=== PATIENT | female | born 1995 | race Caucasian/White ===

== ENCOUNTER → 2017-10-28 08:27 | Outpatient (CLI) | payer BC, MEDICAID, SELFPAY ==
[2017-10-28 09:53] VITALS: BP 113/59; PULSE 79; RESP 18; TEMP 37.1; O2SAT 97
== END ==
PROVIDERS: Family Provider Pediatrics; PCP Pediatrics; Visit Provider Nurse Practitioner Obstetrics & Gynecology
DX: Z34.90 Encounter for supervision of normal pregnancy, unspecified, unspecified trimester (principal)
CPT/HCPCS: 36415; 96372; J2790

== ENCOUNTER → 2017-11-06 10:07 | Outpatient (CLI) | payer BC, MEDICAID, SELFPAY ==
[2017-11-06 11:10] LABS: Glucose,Fasting 96 mg/dL (60-105)
[2017-11-06 12:52] LABS: Glucose 1 Hour 200 mg/dL
[2017-11-06 13:39] LABS: Glucose 2 Hour 126 mg/dL
[2017-11-06 14:27] LABS: Glucose 3 Hour 110 mg/dL
== END ==
PROVIDERS: PCP Pediatrics; Visit Provider Nurse Practitioner Obstetrics & Gynecology
DX: Z34.90 Encounter for supervision of normal pregnancy, unspecified, unspecified trimester (principal)
CPT/HCPCS: 36415; 81002; 82951; 82952

== ENCOUNTER → 2017-12-14 17:23 | Outpatient (REF) | payer BC, MEDICAID, SELFPAY | LOC: LAB 17:23 | PROVIDERS: Visit Provider Nurse Practitioner Obstetrics & Gynecology | DX: Z34.90 Encounter for supervision of normal pregnancy, unspecified, unspecified trimester (principal) | CPT/HCPCS: 86403 ==

== ENCOUNTER 2018-01-06 05:35 | Inpatient (IN) ==
[2018-01-06 06:21] LABS: Basophils % 0.3 % (0.1-2.0); Eosinophils # 0.1 K/mm3 (0.0-0.4); Eosinophils % 0.7 % (0.1-12.0); Hematocrit 34.8 % (37.0-47.0); Hemoglobin 11.9 g/dL (12.2-16.2); Lymphocytes % 26.7 K/mm3 (10-50); Mean Corpuscular HGB Conc 34.3 g/dL (31.8-35.4); Mean Corpuscular Hemoglobin 30.3 pg (27.0-31.2); Mean Corpuscular Volume 88.3 fl (81-99); Mean Platelet Volume 8.8 fl (7.4-10.4); Monocytes # 0.4 K/mm3 (0.1-1.0); Monocytes % 5.7 % (1.7-9.3); Neutrophils # 4.9 K/mm3 (1.8-7.8); Neutrophils % 66.6 % (37.0-80.0); Platelet Count 191 K/mm3 (142-424); Red Blood Count 3.94 M/mm3 (4.20-5.40); Red Cell Distribution Width 14.3 % (11.5-17.5); White Blood Count 7.4 K/mm3 (4.5-13.0)
[2018-01-06 06:25] LABS: Anion Gap 12.9 mEq/L (5-15); Potassium 3.9 mmoL/L (3.5-5.1)
--- NOTE | 2018-01-06 08:17 | Operative Note ---
Date of procedure: 01/06/18 Pre-op Diagnosis:: Term , previous section Post-op Diagnosis:: Term , previous section Procedure performed:: Repeat lower segment transverse section Surgeon:: Alfonso Ca MD Vice President Payment(s):: Dr. Cazares CIVIL ENGINEERING MANAGER:: Ata Shah Anesthesia: spinal Estimated blood loss (mL): 600 Clinical Note:: She is a 22-year-old 2 para 1 who is 39+ weeks gestational age. She has had a previous section and as result of that was offered repeat lower segment transverse section at term Operative findings:: She delivered a liveborn female child at 7:44 AM on the morning of January 06, 2018. The baby had Apgars of 8 at 1 minute and 9 at 5 minutes. PH was 7.31. Ovaries and tubes appeared normal. Operative note:: She was taken to the operating room where spinal anesthesia was found be adequate. She was prepped and draped in normal sterile fashion in the supine position with a leftward tilt. A Matson catheter was in the bladder. A Pfannenstiel skin incision was made with knife then carried through to the underlying layer of fascia with cautery. The fascia was opened in the midline with cautery and extended laterally using Miller scissors. Edward clamps were applied to the superior aspect of the fascial incision which was tented up and the underlying rectus muscles dissected off using cautery. The Edward clamps were then applied to the inferior aspect of the fascial incision which in a similar fashion was tented up and the underlying rectus muscles dissected off using cautery. The rectus muscles were then in the midline, the peritoneum identified, and entered sharply with Metzenbaum scissors. This incision was then extended superiorly and inferiorly with cautery. We had good visualization of the bladder inferiorly. The bladder peritoneum was then opened in the midline and extended laterally using Metzenbaum scissors. A bladder flap was created digitally. The lower blade of the Ignacia was inserted so as to push the bladder out of the way. Transverse incision was made through the uterine muscle to the amnion. This incision was then extended laterally using fingers traction. The amnion was entered sharply with knife. There was clear amniotic fluid. The infant's head was then delivered atraumatically. This was followed by the anterior shoulder and the rest of the infant's body atraumatically. The oropharynx and nasopharynx were bulb suctioned. The was then handed off to Dr. Castro who assigned Apgars of 8 at 1 minute and 9 at 5 minutes. We then obtained cord blood as well as cord pH. PH was 7.31. Using gentle traction on the cord and countertraction on the fundus I was able to easily deliver the placenta intact. It had a normal three-vessel cord. The uterus was then cleared of clots and debris and exteriorized from the abdominal cavity. The uterine incision was then closed using running 0 Vicryl suture in a locked fashion. A second layer of the same suture was used to imbricate the first layer. The bladder peritoneum was then closed using running 2-0 Vicryl suture in a locked fashion. The gutters and cul-de-sac were then cleared of clots and debris and the uterus was returned the abdominal cavity. Once again hemostasis was assured. The peritoneum was grasped with Sammi clamps and closed using running 2-0 Vicryl suture. The rectus muscles were then reapproximated using running 0 Vicryl suture. The fascia was closed using running #1 Vicryl suture. The subcutaneous tissues were then irrigated with warm water followed by closure Sarika's fascia using running 2-0 Monocryl suture. The skin was closed with keeely. The skin was then cleaned with Hibiclens. Sterile dressings were applied. She tolerated the procedure well and was taken to the recovery room in excellent condition. All sponges minute and needle counts were correct. Estimate a blood loss was approximately 600 mL. Condition: stable Disposition: PACU Specimens:: None Complications:: None
--- NOTE | 2018-01-06 08:18 | Progress Note ---
[facility] Anesthesia Checklist - Structural Data Admitted From: Inpatient Planned Operative Procedure/s: c/section Consent for Planned Operative Procedure(s) Verified: Yes Verified Documents: Surgical Consent - Airway Assessment C-Spine Mobility Assessed: Yes TMJ Mobility Assessed: Yes Dentition: Good Dentition - Anesthesia Plan Anesthesia Risk discussed: Yes Anesthesia Plan: Verified ASA Class: II Anesthesia Type: Spinal [facility] Anesthesia HX I have reviewed the patient's past medical history: Yes Medical History: Denies:: Anxiety, Asthma, Depression Laterality Cases: Bilateral: Other Other Surgeries: Yes: Amputation: No Fractures: No *Family Hx:: Diabetes, Hypertension, Coronary Artery Disease, Heart Attack
--- NOTE | 2018-01-06 08:18 | Progress Note ---
[facility] Anesthesia Record Part I Intake, IV Amount: 1,500 Estimated blood loss (mL): 600 Urine output (mL): 200 Blood Pressure: 129/56 SaO2: 95 Pulse Rate: 81 Respiratory Rate: 12 Temperature: 97.5 F Patient is:: Awake, Stable Stable to PACU at:: 08:15
--- NOTE | 2018-01-06 08:19 | Progress Note ---
[facility] Anesthesia Record Part II Discharge Time: 08:45 Destination: Obstetric PACU nurse assessment reviewed?: Yes Patient Condition:: Good Anesthesia Complications:: None
--- NOTE | 2018-01-06 08:20 | History & Physical Report ---
OB - H&P: HPI Antepartum - History of Present Illness Chief complaint: Term , previous section - History of Present Criteria for establishing EDC:: LMP confirmed by 1st trimester US care: good care Ultrasounds: normal 1st trimester US, normal mid trimester US Obstetrical complications: none, previous Medical complications: none Planning to breastfeed?: No H History I have reviewed the patient's past medical history: Yes Medical History: Denies:: Anxiety, Asthma, Depression Laterality Cases: Bilateral: Other Other Surgeries: Yes: Amputation: No Fractures: No - *Social History Smoking Status: Never smoker # Packs/Day (cigarettes): 1 Alcohol Intake: never Substance Use Type: denies use - Psychiatric History Pschychiatric History:: Denies:: Anxiety, Depression *Family Hx:: Diabetes, Hypertension, Coronary Artery Disease, Heart Attack Para: 1 Meds Home Medications Medication Instructions Recorded Confirmed Type 1 tab PO QDAY 10/21/17 01/06/18 History vitamin,calcium,nhduaqsi-lyqj-fgtsh acid tablet RX: Iron Polysaccharide Complex 150 mg PO ONCE 01/06/18 01/06/18 History [Nu-Iron 150] Allergies Allergy/AdvReac Type Severity Reaction Status Date / Time No Known Allergies Allergy Verified 12/31/17 10:07 OB - H&P: Exam - Physical Exam Vital signs: Temp Pulse Resp BP Pulse Ox 98.4 F 82 18 103/61 96 01/06/18 06:34 01/06/18 06:34 01/06/18 06:34 01/06/18 06:34 01/06/18 06:34 - Constitutional no acute distress OB - Results - Labs Labs: Short CBC 01/06/18 Range/Units 06:10 WBC 7.4 (4.5-13.0) K/mm3 Hgb 11.9 L (12.2-16.2) g/dL Hct 34.8 L (37.0-47.0) % Plt Count 191 (142-424) K/mm3 BMP 01/06/18 06:10 Sodium 136 Potassium 3.9 Chloride 105 Carbon Dioxide 22 BUN 13 Creatinine 0.71 Glucose 98 OB - A/P Antepartum (1) Previous section complicating , with delivery Current visit: Yes Status: Acute - Additional Plan Plan: other (She is here for a repeat lower segment transverse position at term. ) Planning to breastfeed?: No
--- NOTE | 2018-01-06 11:23 | Pharmacy Consult Notes ---
[facility] Pharmacy VTE Monitoring - Patient Demographics Admission date: 01/05/18 Report Date: 01/06/18 Time: 11:23 Allergies/Adverse Reactions: Patient Allergies No Known Allergies Allergy (Verified 12/31/17 10:07) Height: 1.73 m Weight: 101.605 kg Patient Problems: Current Active Problems Previous section complicating , with delivery (Acute) - VTE Risk Labs: VTE Related Lab Results Hgb 11.9 g/dL (12.2-16.2) L 01/06/18 06:10 Hct 34.8 % (37.0-47.0) L 01/06/18 06:10 Plt Count 191 K/mm3 (142-424) 01/06/18 06:10 BUN 13 mg/dL (7-18) 01/06/18 06:10 Creatinine 0.71 mg/dL (0.55-1.02) 01/06/18 06:10 Estimated Creat Clear 203 mL/min (0-300) 01/06/18 06:10 Clinical Trial Participant: No - Prophylaxis VTE Prophylaxis Ordered?: Yes Types of VTE Prophylaxis: IPCS Knee High (POST OP)
[2018-01-07 06:45] LABS: Basophils % 0.2 % (0.1-2.0); Eosinophils # 0.1 K/mm3 (0.0-0.4); Eosinophils % 1.5 % (0.1-12.0); Hematocrit 34.5 % (37.0-47.0); Hemoglobin 11.1 g/dL (12.2-16.2); Lymphocytes # 1.8 K/mm3 (0.7-4.5); Lymphocytes % 22.3 K/mm3 (10-50); Mean Corpuscular HGB Conc 32.3 g/dL (31.8-35.4); Mean Corpuscular Hemoglobin 29.7 pg (27.0-31.2); Mean Platelet Volume 8.9 fl (7.4-10.4); Monocytes # 0.5 K/mm3 (0.1-1.0); Monocytes % 5.9 % (1.7-9.3); Neutrophils # 5.6 K/mm3 (1.8-7.8); Neutrophils % 70.1 % (37.0-80.0); Platelet Count 156 K/mm3 (142-424); Red Blood Count 3.75 M/mm3 (4.20-5.40); Red Cell Distribution Width 14.4 % (11.5-17.5)
--- NOTE | 2018-01-07 11:02 | Progress Note ---
Internal Medicine - PN: Subj *Date: 01/07/18 *Time: 10:56 Interval history: She is doing very well this morning. She is eating and drinking and ambulating. Exam Vital signs and Labs for Last 24 Hours: Temp Pulse Resp BP Pulse Ox 98.3 F 88 18 113/68 97 01/06/18 19:45 01/06/18 19:45 01/06/18 19:45 01/06/18 19:45 01/06/18 19:45 Laboratory Results - last 24 hr 01/06/18 06:10: Antibody Identification Anti-D 01/06/18 07:35: Urine Color Yellow, Urine Appearance Clear, Urine pH 7.0, Ur Specific [place] 1.020, Urine Protein Negative, Urine Glucose (UA) Negative, Urine Ketones Negative, Urine Blood Negative, Urine Nitrate Negative, Urine Bilirubin Negative, Urine Urobilinogen 0.2, Ur Leukocyte Esterase Negative, Urine RBC None, Urine WBC Occasional, Ur Squamous Epith Cells 3-5, Urine Bacteria 1+ 01/07/18 06:25: WBC 8.0, RBC 3.75 L, Hgb 11.1 L, Hct 34.5 L, MCV 92.0, MCH 29.7 , MCHC 32.3, RDW 14.4, Plt Count 156, MPV 8.9, Neut % (Auto) 70.1, Lymph % (Auto ) 22.3, [place] % (Auto) 5.9, Eos % (Auto) 1.5, Baso % (Auto) 0.2, Neut # (Auto) 5.6, Lymph # (Auto) 1.8, [place] # (Auto) 0.5, Eos # (Auto) 0.1, Baso # (Auto) 0.0 01/07/18 06:25: Blood Type A Negative, Antibody Screen Positive, Screen Negative, Baby's Rh Status Positive I & O for Last 24 hours: Intake & Output 01/04/18 01/05/18 01/06/18 01/07/18 11:59 11:59 11:59 11:59 Intake Total 1500 / 1500 Output Total 200 / 200 Balance 1300 / 1300 Weight 224 lb - Constitutional no acute distress Assessment and Plan (1) Previous section complicating , with delivery Current visit: Yes Status: Acute Category: Surgical Code(s): O34.219 - Maternal care for unspecified type scar from previous delivery - Assessment and plan all Dx Assessment and Plan for all problems:: She is doing very well 1 day post . We will plan to send her home in 48 hours.
--- NOTE | 2018-01-07 11:06 | Discharge Summary ---
General - General Admission date: 01/05/18 Discharge date: 01/09/18 HPI HPI: She is a 22-year-old 2 now para 2 who is 39 weeks gestational age. She has had previous section so she was offered repeat lower segment Hospital Course Hospital Course: On January 06, 2018 she underwent a repeat lower segment transverse section and delivered a liveborn child. She has done well postoperatively and has remained afebrile throughout her physician. She is eating and drinking and ambulating. She is bottlefeeding. Her lochia is normal. She is discharged home to follow-up with me in approximately 2 weeks time. She has had her keeley removed and Steri-Strips applied. She was given a prescription for Percocet 5/325, 20 tablets. We will continue with her vitamins and iron. Objective Vital signs: Temp Pulse Resp BP Pulse Ox 98.3 F 88 18 113/68 97 01/06/18 19:45 01/06/18 19:45 01/06/18 19:45 01/06/18 19:45 01/06/18 19:45 no acute distress Results Labs on day of discharge: Labs from last 24 hours 01/07/18 01/07/18 01/07/18 06:25 06:25 06:25 WBC 8.0 RBC 3.75 L Hgb 11.1 L Hct 34.5 L MCV 92.0 MCH 29.7 MCHC 32.3 RDW 14.4 Plt Count 156 MPV 8.9 Neut % (Auto) 70.1 Lymph % (Auto) 22.3 [place] % (Auto) 5.9 Eos % (Auto) 1.5 Baso % (Auto) 0.2 Neut # (Auto) 5.6 Lymph # (Auto) 1.8 [place] # (Auto) 0.5 Eos # (Auto) 0.1 Baso # (Auto) 0.0 Urine Color Urine Appearance Urine pH Ur Specific [place] Urine Protein Urine Glucose (UA) Urine Ketones Urine Blood Urine Nitrate Urine Bilirubin Urine Urobilinogen Ur Leukocyte Esterase Urine RBC Urine WBC Ur Squamous Epith Cells Urine Bacteria Blood Type A Negative Antibody Screen Positive Antibody Identification Pending Screen Negative Baby's Rh Status Positive 01/06/18 01/06/18 07:35 06:10 WBC RBC Hgb Hct MCV MCH MCHC RDW Plt Count MPV Neut % (Auto) Lymph % (Auto) [place] % (Auto) Eos % (Auto) Baso % (Auto) Neut # (Auto) Lymph # (Auto) [place] # (Auto) Eos # (Auto) Baso # (Auto) Urine Color Yellow Urine Appearance Clear Urine pH 7.0 Ur Specific [place] 1.020 Urine Protein Negative Urine Glucose (UA) Negative Urine Ketones Negative Urine Blood Negative Urine Nitrate Negative Urine Bilirubin Negative Urine Urobilinogen 0.2 Ur Leukocyte Esterase Negative Urine RBC None Urine WBC Occasional Ur Squamous Epith Cells 3-5 Urine Bacteria 1+ Blood Type Antibody Screen Antibody Identification Anti-D Screen Baby's Rh Status DS: Diagnosis - Discharge Diagnosis (1) Previous section complicating , with delivery Status: Acute Discharge Plan - Patient Discharge Instructions ACTIVITY: No heavy lifting DIET: continue same diet - Follow up Plan Disposition: Home, Self-[facility] Medications: Home Medications Medication Instructions Recorded Confirmed Type 1 tab PO DAILY 10/21/17 01/06/18 History vitamin,calcium,zyxrlbak-uppz-lzxvg acid tablet Iron Polysaccharide Complex 150 mg PO DAILY 01/06/18 01/06/18 History [Nu-Iron 150] Prescriptions/Medication Reconciliation: Continue vitamin,calcium,ielrwxrr-byfj-scmol acid tablet 1 tab PO DAILY Iron Polysaccharide Complex [Nu-Iron 150] 150 mg PO DAILY
--- NOTE | 2018-01-08 06:25 | Progress Note ---
Internal Medicine - PN: Subj *Date: 01/08/18 *Time: 06:24 (This is /postop day #2. Covering for Dr. Ca in his absence. The patient is afebrile. Vital signs stable. Wound clean. Abdomen soft. Lochia normal. Uterine fundus involuting well. Impression: Stable.) Exam Vital signs and Labs for Last 24 Hours: Temp Pulse Resp BP Pulse Ox 98.3 F 88 18 113/68 97 01/06/18 19:45 01/06/18 19:45 01/06/18 19:45 01/06/18 19:45 01/06/18 19:45 Laboratory Results - last 24 hr 01/07/18 06:25: WBC 8.0, RBC 3.75 L, Hgb 11.1 L, Hct 34.5 L, MCV 92.0, MCH 29.7 , MCHC 32.3, RDW 14.4, Plt Count 156, MPV 8.9, Neut % (Auto) 70.1, Lymph % (Auto ) 22.3, [place] % (Auto) 5.9, Eos % (Auto) 1.5, Baso % (Auto) 0.2, Neut # (Auto) 5.6, Lymph # (Auto) 1.8, [place] # (Auto) 0.5, Eos # (Auto) 0.1, Baso # (Auto) 0.0 01/07/18 06:25: Blood Type A Negative, Antibody Screen Positive, Screen Negative, Baby's Rh Status Positive 01/07/18 14:27: Rhogam Infusion Rhogam release I & O for Last 24 hours: Intake & Output 01/05/18 01/06/18 01/07/18 01/08/18 11:59 11:59 11:59 11:59 Intake Total 1500 / 1500 Output Total 200 / 200 Balance 1300 / 1300 Weight 224 lb Assessment and Plan (1) Previous section complicating , with delivery Current visit: Yes Status: Acute Category: Surgical Code(s): O34.219 - Maternal care for unspecified type scar from previous delivery
--- NOTE | 2018-01-09 07:31 | Progress Note ---
Internal Medicine - PN: Subj *Date: 01/09/18 *Time: 07:30 (This is /postop day #3. The patient is afebrile. Vital signs stable. Wound clean. Bronson will be removed and replaced Steri- Strips. Abdomen soft. Lochia normal uterine fundus involuting well. Hemoglobin 11.1 g, but clinically stable. She will be discharged today.) Exam Vital signs and Labs for Last 24 Hours: Temp Pulse Resp BP Pulse Ox 97.6 F 70 18 110/73 97 01/08/18 08:00 01/08/18 08:00 01/08/18 08:00 01/08/18 08:00 01/08/18 08:00 Laboratory Results - last 24 hr 01/07/18 06:25: Antibody Identification See Comments I & O for Last 24 hours: Intake & Output 01/06/18 01/07/18 01/08/18 01/09/18 11:59 11:59 11:59 11:59 Intake Total 1500 / 1500 Output Total 200 / 200 Balance 1300 / 1300 Weight 224 lb Assessment and Plan (1) Previous section complicating , with delivery Current visit: Yes Status: Acute Category: Surgical Code(s): O34.219 - Maternal care for unspecified type scar from previous delivery
== END 2018-01-09 11:25 | disposition home or self-care (01) ==
LOC: OB 05:35
PROVIDERS: ADMIT Nurse Practitioner Obstetrics & Gynecology; ATTEND Nurse Practitioner Obstetrics & Gynecology

== ENCOUNTER → 2018-08-31 13:52 | Outpatient (CLI) | payer BC, MEDICAID, SELFPAY ==
[2018-08-31 15:26] LABS: HCG,Quantitative 0 mIU/mL
== END ==
PROVIDERS: Visit Provider Nurse Practitioner Obstetrics & Gynecology
DX: Z34.90 Encounter for supervision of normal pregnancy, unspecified, unspecified trimester (principal)
CPT/HCPCS: 36415; 84702

== ENCOUNTER → 2019-04-26 11:35 | Outpatient (CLI) | payer BC, MEDICAID, SELFPAY ==
--- NOTE | 2019-04-26 11:43 | XR_ITS ---
XR finger LT min 2V CLINICAL INDICATION: Pain following injury ITS.REASON: INJURY OF FINGER ORDERING PHYSICIAN: Ac Wisdom MD PATIENT AGE: 23 years Comparison: None FINDINGS: There is a nondisplaced longitudinal fracture involving the proximal aspect of the distal phalanx of the third finger. The fracture does appear to extend into the articular surface of the DIP joint. IMPRESSION: Nondisplaced fracture distal phalanx third finger
== END ==
PROVIDERS: PCP Internal Medicine Adolescent Medicine; Visit Provider Internal Medicine Adolescent Medicine
DX: S69.92XA Unspecified injury of left wrist, hand and finger(s), initial encounter (principal)
CPT/HCPCS: 73140

== ENCOUNTER → 2019-06-16 14:18 | Outpatient (CLI) | payer BC, MEDICAID, SELFPAY ==
--- NOTE | 2019-06-16 14:19 | US_ITS ---
PROCEDURE: US OB TRANSVAGINAL CLINICAL INDICATION: us ob dates COMPARISON: TVP US TRANSVAGINAL PREG from 06/10/2017 FINDINGS: The uterus is retroverted An intrauterine gestational sac is present with a pole with a crown-rump length of 1.46 cm correlating to gestational age of 7.86 week. heart tones are present with an FHR of 139 bpm. Yolk sac is noted. The amnion and chorion Have not yet fused. Adnexa: IMPRESSION: Live intrauterine gestation at 7 weeks 6 days Estimated due date by Ultrasound is 01/27/2020 Dictated by: Daniel Mendoza MD 06/16/2019 15:28 Electronically signed by Daniel Mendoza MD in [place] 06/16/2019 15:28
== END ==
PROVIDERS: PCP Internal Medicine Adolescent Medicine; Visit Provider Nurse Practitioner Obstetrics & Gynecology
DX: O26.841 Uterine size-date discrepancy, first trimester (principal)
CPT/HCPCS: 76817

== ENCOUNTER → 2019-07-05 10:32 | Outpatient (CLI) | payer BC, MEDICAID, SELFPAY ==
[2019-07-05 12:47] LABS: Basophils % 0.5 % (0.1-2.0); Eosinophils # 0.1 K/mm3 (0.0-0.4); Eosinophils % 1.4 % (0.1-12.0); Hematocrit 38.1 % (37.0-47.0); Hemoglobin 12.3 g/dL (12.2-16.2); Lymphocytes # 1.4 K/mm3 (0.7-4.5); Lymphocytes % 19.4 % (10-50); Mean Corpuscular HGB Conc 32.3 g/dL (31.8-35.4); Mean Corpuscular Hemoglobin 30.9 pg (27.0-31.2); Mean Corpuscular Volume 95.5 fl (81-99); Monocytes # 0.3 K/mm3 (0.1-1.0); Monocytes % 3.6 % (1.7-9.3); Neutrophils # 5.4 K/mm3 (1.8-7.8); Neutrophils % 75.1 % (37.0-80.0); Platelet Count 235 K/mm3 (142-424); Red Blood Count 3.99 M/mm3 (4.20-5.40); Red Cell Distribution Width 13.5 % (11.5-17.5); White Blood Count 7.2 K/mm3 (4.8-10.8)
[2019-07-06 07:18] LABS: HIV Screen 4th Generation wRfx Non Reactive (Non Reactive)
[2019-07-06 10:50] LABS: Hepatitis B Surface Antigen Negative (Negative); Hepatitis C Antibody <0.1 s/co ratio (0.0-0.9); Rapid Plasma Reagin Ab Titer Non Reactive (NonRea<1:1); Rubella Antibodies, IgG 2.66 index (Immune >0.99)
== END ==
PROVIDERS: Visit Provider Nurse Practitioner Obstetrics & Gynecology
DX: Z3A.01 Less than 8 weeks gestation of pregnancy (principal)
CPT/HCPCS: 36415; 85025; 86592; 86703; 86762; 86850; 87340; 87380; G0432

== ENCOUNTER → 2019-09-09 15:05 | Outpatient (CLI) | payer BC, OTHER, SELFPAY ==
--- NOTE | 2019-09-09 15:07 | US_ITS ---
PROCEDURE: US OB /MATERNAL DETAIL CLINICAL INDICATION: US T/V OB- Complete COMPARISON: US OB TRANSVAGINAL from 06/16/2019 FINDINGS: Single viable intrauterine gestation. Vertex position. Placenta: Anteriorplacenta grade 1. There is average amount fluid. The cervix appears satisfactory. Closed and measuring 4.2 cm in length. Complete survey performed and was unremarkable on the submitted images as in PACS. No discrete anomalies identified on survey imaging by technologist. Active fetus. Three-vessel cord with satisfactory umbilical cord insertion. 4- chamber heart noted. Survey of brain & ventricles Unremarkable. Face and neck survey unremarkable. Diaphragm and chest views unremarkable. Abdomen: Both kidneys noted and unremarkable. Stomach noted and satisfactory. Spine: Survey of the spine satisfactory with no anomalies identified nor imaged. Both arms and legs noted. Amniotic Fluid: Adequate. Maternal adnexa: No significant findings. Measurements: Average ultrasound age 20 weeks 0 days. Gestational Age 20 weeks 0 days Estimated due date by ultrasound age 0401/27/2020. Estimated weight 335.2 ggrams. BPD = 4.6 cm equaling 20 weeks 0 days OFD = 5.78 cm equaling 20 weeks 0 days HC = 16.41 cm equaling 19 weeks 2 days AC = 14.62 cm equaling 20 weeks 0 days FL = 3.4 cm equaling 20 weeks 5 days Growth Percentile= 41 Percent% Heart Rate = 144 bpm Cerebellum = 1.95 cm equaling 20 weeks 0 days Humerus = 3.03 cm equaling 20 weeks 0 days HC/AC is 1.12 CI is 0.8 FL/BPD is 0.74 FL/AC is 0.23 IMPRESSION: Viable active fetus vertex presentation approximate age 20 weeks and 0 days Dictated by: Dr. Jose Birch MD 09/10/2019 09:[address] Jose Birch MD in [place] 09/10/2019 09:08
== END ==
PROVIDERS: PCP Internal Medicine Adolescent Medicine; Visit Provider Nurse Practitioner Obstetrics & Gynecology
DX: Z36.0 Encounter for antenatal screening for chromosomal anomalies (principal)
CPT/HCPCS: 76811

== ENCOUNTER 2019-10-25 10:38 | Outpatient (CLI) | payer BC, OTHER, SELFPAY ==
[2019-10-25 11:35] LABS: Glucose,Fasting 97 mg/dL (60-105)
[2019-10-25 12:20] VITALS: BP 108/49; PULSE 75; RESP 18; O2SAT 100
[2019-10-25 13:03] LABS: Glucose 1 Hour 171 mg/dL (74-106)
== END 2019-10-25 12:40 | disposition home or self-care (01) ==
PROVIDERS: Visit Provider Nurse Practitioner Obstetrics & Gynecology
DX: Z34.90 Encounter for supervision of normal pregnancy, unspecified, unspecified trimester (principal)
CPT/HCPCS: 36415; 82951; 96372; J2790

== ENCOUNTER 2019-12-24 12:04 | Outpatient (CLI) | payer BC, OTHER, SELFPAY ==
[2019-12-24 12:10] VITALS: BMI 33.5
[2019-12-24 12:25] LABS: Appearance,Urine CLEAR (Clear); Bilirubin,Urine Negative (Negative); Blood, Urine Negative (Negative); Color,Urine YELLOW (Yellow); Glucose,Urine (UA) Negative (Negative); Ketones,Urine Negative (Negative); Leukocyte Esterase,Urine 2+ (Negative); Microscopic, Urine URINE MICROSCOPIC (MICROSCOPIC); Nitrate,Urine Negative (Negative); Protein,Urine Negative (Negative); Urobilinogen,Urine 0.2 EU/dl (0.2)
[2019-12-24 12:30] VITALS: BP 110/63; PULSE 104; RESP 18; TEMP 36.5; O2SAT 98; BMI 33.5
--- NOTE | 2019-12-24 12:34 | HMH.ACPN2 ---
Internal Medicine - PN: Subj *Date: 12/24/19 *Time: 12:34 Interval history: She is a 24-year-old 3 para 2 who was 35 weeks gestational age. She started having some contractions and upper abdominal pain that went through her back. She says she has a history of pancreatitis and she was worried about this. Exam Vital signs and Labs for Last 24 Hours: Laboratory Results - last 24 hr 12/24/19 12:15: Urine Color Yellow, Urine Appearance Clear, Urine pH 7.0, Ur Specific [place] 1.020, Urine Protein Negative, Urine Glucose (UA) Negative, Urine Ketones Negative, Urine Blood Negative, Urine Nitrate Negative, Urine Bilirubin Negative, Urine Urobilinogen 0.2, Ur Leukocyte Esterase 2+ A I & O for Last 24 hours: Intake & Output 12/22/19 12/23/19 12/24/19 12/25/19 11:59 11:59 11:59 11:59 Weight 221 lb - Constitutional no acute distress - *Routine HEENT Exam Head: Present: normocephalic Eye: Present: EOMI, PERRL ENT: Present: mucous membranes moist - *Routine Neck Exam Present: supple, full ROM - *Routine Abdominal Exam Present: soft, normoactive bowel sounds. Absent: tenderness, rebound, guarding, mass Assessment and Plan (1) False labor before 37 completed weeks of gestation Current visit: Yes Status: Acute Category: Medical Code(s): O47.00 - False labor before 37 completed weeks of gestation, unspecified trimester - Assessment and plan all Dx Assessment and Plan for all problems:: Her cervix is long and closed. She is just having an occasional contraction on the monitor. The nonstress test is reactive. We will get routine blood work as well as a urinalysis. We will give her some fluids. If everything is normal and her contractions settled we will plan to send her home.
[2019-12-24 12:35] LABS: RBC,Urine Occasional #/hpf (0-3); WBC,Urine 20-50 #/hpf (0-3)
[2019-12-24 12:37] LABS: Amphetamine/Metha Screen,Urine Negative ng/ml (<1000)
[2019-12-24 12:38] LABS: Barbiturates Screen,Urine Negative ng/ml (<200); Benzodiazepines Screen,Urine Negative ng/ml (<200)
[2019-12-24 12:39] LABS: Cannabinoid Screen,Urine Negative ng/ml (<50); Cocaine Screen,Urine Negative ng/ml (<300)
[2019-12-24 12:40] LABS: Methadone Screen,Urine Negative ng/ml (<300)
[2019-12-24 13:06] LABS: Basophils % 0.5 % (0.1-2.0); Eosinophils # 0.1 K/mm3 (0.0-0.4); Eosinophils % 0.9 % (0.1-12.0); Hematocrit 30.5 % (37.0-47.0); Lymphocytes # 1.5 K/mm3 (0.7-4.5); Lymphocytes % 20.7 % (10-50); Mean Corpuscular HGB Conc 32.9 g/dL (31.8-35.4); Mean Corpuscular Hemoglobin 28.7 pg (27.0-31.2); Mean Corpuscular Volume 87.3 fl (81-99); Mean Platelet Volume 8.6 fl (7.4-10.4); Monocytes # 0.5 K/mm3 (0.1-1.0); Monocytes % 6.2 % (1.7-9.3); Neutrophils # 5.3 K/mm3 (1.8-7.8); Neutrophils % 71.6 % (37.0-80.0); Platelet Count 227 K/mm3 (142-424); Red Cell Distribution Width 15.2 % (11.5-17.5); White Blood Count 7.4 K/mm3 (4.8-10.8)
[2019-12-24 13:15] LABS: Opiate Screen,Urine Negative ng/ml (<300)
[2019-12-24 13:16] LABS: Phencyclidine Screen,Urine Negative ng/ml (<25)
[2019-12-24 13:32] LABS: Alanine Aminotransferase 11 U/L (12-78); Albumin Level 3.4 g/dl (3.5-5.0); Albumin/Globulin Ratio 1.2 (1.1-1.8); Alkaline Phosphatase 122 U/L (38-126); Amylase < 30 U/L (30-110); Anion Gap 9.2 mEq/L (5-15); Aspartate Amino Transferase 24 U/L (14-36); Bilirubin,Total 0.3 mg/dl (0.2-1.3); Blood Urea Nitrogen 7 mg/dl (7-17); Carbon Dioxide 24 mmol/L (22.0-30.0); Chloride 105 mmol/L (98-107); Creatinine Clearance Estimated 279 mL/min (50-200); Estimated Glomerular Filt Rate 154 ml/min (>60); GFR (African American) 187 ML/MIN (>60); Globulin 2.9 g/dL (1.3-3.2); Glucose 93 mg/dl (74-100); Lipase 35 U/L (23-300); Potassium 4.2 mmoL/L (3.5-5.1); Sodium 134 mmol/L (136-145); Total Protein,Serum 6.3 g/dl (6.3-8.2)
== END 2019-12-24 14:00 | disposition home or self-care (01) ==
LOC: OBOUT 12:07 → OB 12:07
PROVIDERS: PCP Internal Medicine Adolescent Medicine; Visit Provider Nurse Practitioner Obstetrics & Gynecology
DX: O47.03 False labor before 37 completed weeks of gestation, third trimester (principal); Z3A.35 35 weeks gestation of pregnancy
CPT/HCPCS: 59025; 80053; 80305; 81001; 82150; 83690; 85025; 87086; 96365; G0463

== ENCOUNTER → 2019-12-26 16:27 | Outpatient (CLI) | payer BC, OTHER, SELFPAY | PROVIDERS: Visit Provider Nurse Practitioner Obstetrics & Gynecology | DX: Z34.90 Encounter for supervision of normal pregnancy, unspecified, unspecified trimester (principal) | CPT/HCPCS: 86403 ==

== ENCOUNTER → 2020-01-15 21:02 | Outpatient (CLI) | payer BC, OTHER, SELFPAY ==
[2020-01-15 21:14] VITALS: BMI 34.4
[2020-01-15 21:31] VITALS: BP 118/70; PULSE 110; RESP 18; TEMP 36.5; O2SAT 97; BMI 34.4
== END ==
LOC: OBOUT 21:04 → OB 21:04 → OBOUT 21:45 → OB 22:37 → OBOUT 07-22 00:07
PROVIDERS: PCP Internal Medicine Adolescent Medicine; Visit Provider Nurse Practitioner Obstetrics & Gynecology
DX: O26.93 Pregnancy related conditions, unspecified, third trimester (principal); Z3A.38 38 weeks gestation of pregnancy; O71.9 Obstetric trauma, unspecified
CPT/HCPCS: 59025; G0378

== ENCOUNTER 2020-01-20 05:33 | Inpatient (IN) | payer BC, OTHER, SELFPAY ==
[2020-01-20] VITALS (13 sets, daily range): BP systolic 99–117; BP diastolic 51–70; PULSE 56–89; RESP 13–18; TEMP 36.3–36.7; O2SAT 94–99; BMI 34.2
[2020-01-20 06:18] LABS: Microscopic, Urine URINE MICROSCOPIC (MICROSCOPIC)
[2020-01-20 06:20] LABS: Basophils % 0.4 % (0.1-2.0); Eosinophils # 0.1 K/mm3 (0.0-0.4); Eosinophils % 1.3 % (0.1-12.0); Hemoglobin 10.3 g/dL (12.2-16.2); Lymphocytes # 1.7 K/mm3 (0.7-4.5); Lymphocytes % 21.7 % (10-50); Mean Corpuscular HGB Conc 32.2 g/dL (31.8-35.4); Mean Corpuscular Hemoglobin 27.4 pg (27.0-31.2); Mean Platelet Volume 8.2 fl (7.4-10.4); Monocytes # 0.5 K/mm3 (0.1-1.0); Monocytes % 6.3 % (1.7-9.3); Neutrophils # 5.5 K/mm3 (1.8-7.8); Neutrophils % 70.2 % (37.0-80.0); Platelet Count 239 K/mm3 (142-424); Red Blood Count 3.77 M/mm3 (4.20-5.40); Red Cell Distribution Width 15.7 % (11.5-17.5); White Blood Count 7.8 K/mm3 (4.8-10.8)
[2020-01-20 06:22] LABS: Chloride 104 mmol/L (98-107); Potassium 4.2 mmoL/L (3.5-5.1); Sodium 135 mmol/L (136-145)
[2020-01-20 06:25] LABS: Appearance,Urine CLEAR (Clear); Bilirubin,Urine Negative (Negative); Blood, Urine Negative (Negative); Color,Urine YELLOW (Yellow); Glucose,Urine (UA) Negative (Negative); Ketones,Urine Negative (Negative); Leukocyte Esterase,Urine 1+ (Negative); Nitrate,Urine Negative (Negative); Protein,Urine Negative (Negative); Specific Gravity, Urine 1.025 (1.005-1.030)
[2020-01-20 06:26] LABS: Anion Gap 13.2 mEq/L (5-15); Blood Urea Nitrogen 9 mg/dl (7-17); Calcium 8.9 mg/dl (8.4-10.2); Carbon Dioxide 22 mmol/L (22.0-30.0); Creatinine Clearance Estimated 284 mL/min (50-200); Estimated Glomerular Filt Rate 154 ml/min (>60); GFR (African American) 187 ML/MIN (>60); Glucose 98 mg/dl (74-100)
[2020-01-20 06:33] LABS: Bacteria,Urine 1+ /lpf
[2020-01-20 06:35] LABS: Barbiturates Screen,Urine Negative ng/ml (<200)
[2020-01-20 06:36] LABS: Amphetamine/Metha Screen,Urine Negative ng/ml (<1000); Benzodiazepines Screen,Urine Negative ng/ml (<200)
[2020-01-20 06:37] LABS: Cannabinoid Screen,Urine Negative ng/ml (<50)
[2020-01-20 06:38] LABS: Cocaine Screen,Urine Negative ng/ml (<300); Methadone Screen,Urine Negative ng/ml (<300)
[2020-01-20 06:39] LABS: Opiate Screen,Urine Negative ng/ml (<300); Phencyclidine Screen,Urine Negative ng/ml (<25)
--- NOTE | 2020-01-20 07:57 | P.CONPHA_ITS ---
[facility] Pharmacy VTE Monitoring - Patient Demographics Admission date: 01/20/20 Report Date: 01/20/20 Time: 07:57 Allergies/Adverse Reactions: Patient Allergies shrimp Allergy (Severe, Verified 01/18/20 10:14) Difficulty Breathing Height: 1.73 m Weight: 102.058 kg - VTE Risk Labs: VTE Related Lab Results Hgb 10.3 g/dL (12.2-16.2) L 01/20/20 06:00 Hct 32.0 % (37.0-47.0) L 01/20/20 06:00 Plt Count 239 K/mm3 (142-424) 01/20/20 06:00 BUN 9 mg/dl (7-17) 01/20/20 06:00 Creatinine 0.50 mg/dl (0.52-1.04) L 01/20/20 06:00 Estimated Creat Clear 284 mL/min (50-200) 01/20/20 06:00 - Prophylaxis VTE Prophylaxis Ordered?: Yes Types of VTE Prophylaxis: IPCS Thigh High Location of Applied Device: Bilateral Lower Extremeties
--- NOTE | 2020-01-20 07:59 | HMH.PHAINT ---
HOME MEDICATIONS RECONCILED.
[2020-01-20 08:12] LABS: Cord Blood PH 7.29 (7.35-7.45)
--- NOTE | 2020-01-20 08:22 | HMH.OPNOTE ---
Date of procedure: 01/20/20 Pre-op Diagnosis:: Term , previous section Post-op Diagnosis:: Term , previous section Procedure performed:: Repeat lower segment transverse section Surgeon:: Alfonso Ca MD Director Of Video Analytics(s):: Evelia Cardona HIGH [employer]CHOOL CHEMISTRY TEACHER:: Carmine Vargas Anesthesia: spinal Estimated blood loss (mL): 600 Clinical Note:: She is a 24-year-old 3 para 2 who was 39 weeks gestational age. She is had 2 previous sections and as result of that was offered repeat lower segment transverse section at term. Operative findings:: She delivered a liveborn female child at 7:56 AM on the morning of January 20, 2020. The baby had Apgars of 8 at 1 minute and 9 at 5 minutes. pH was 7.29. Ovaries and tubes appeared normal. Operative note:: She was taken to the operating room where spinal anesthesia was found be adequate. She was prepped and draped in normal sterile fashion in the supine position with a leftward tilt. A Matson catheter was in the bladder. A Pfannenstiel skin incision was made with knife then carried through to the underlying layer of fascia with cautery. The fascia was opened in the midline with cautery and extended laterally using Miller scissors. [place] clamps were applied to the superior aspect of the fascial incision which was tented up and the underlying rectus muscles dissected off using cautery. The Edward clamps were then applied to the inferior aspect of the fascial incision which in a similar fashion was tented up and the underlying rectus muscles dissected off using cautery. The rectus muscles were then in the midline, the peritoneum identified, and entered sharply with Metzenbaum scissors. This incision was then extended superiorly and inferiorly with cautery. We had good visualization of the bladder inferiorly. The bladder peritoneum was then opened in the midline and extended laterally using Metzenbaum scissors. A bladder flap was created digitally. The lower uterine segment was actually quite thin. Transverse incision was made through the uterine muscle to the amnion. This incision was then extended laterally using fingers traction. The amnion was entered sharply with knife. There was clear amniotic fluid. The infant's head was then delivered atraumatically. A loose nuchal cord was then reduced. This was followed by the anterior shoulder and the rest of the 's body atraumatically. The oropharynx and nasopharynx were bulb suctioned. The infant was then handed off to Dr. Reyna who assigned Apgars of8 at 1 minute and 9 at 5 minutes. We then obtained cord blood as well as cord pH. The pH was 7. 2 9. Using gentle traction on the cord and countertraction on the fundus I was able to easily deliver the placenta intact. It had a normal three-vessel cord. The uterus was then cleared of clots and debris . The uterine incision was then closed using running 0 Vicryl suture in a locked fashion. A second layer of the same suture was used to imbricate the first layer. The bladder peritoneum did not need to be closed. The gutters and cul-de-sac were then cleared of clots and debris . Once again hemostasis was assured. The uterus was then returned to the abdominal cavity. The peritoneum was grasped with Sammi clamps and closed using running 2-0 Vicryl suture. The rectus muscles were then reapproximated using running 0 Vicryl suture. The fascia was closed using running #1 Vicryl suture. The subcutaneous tissues were then irrigated with warm water followed by closure Sarika's fascia using running 2-0 Monocryl suture. The skin was closed with keeley. I then cleaned the skin with Hibiclens. Sterile dressings were applied. She tolerated the procedure well and was taken to the recovery room in excellent condition. All sponges minute and needle counts were correct. Estimate a blood loss was approximately 600 mL. Condition: stable Disposition: PACU Specimens:: Pro
--- NOTE | 2020-01-20 08:25 | HMH.OBAPHP ---
OB - H&P: HPI Antepartum - History of Present Illness Chief complaint: Term , previous sections History of present illness: She is a 24-year-old 3 para 2 at 39 weeks gestational age. She is had 2 previous sections and as result of that was offered repeat lower segment transverse section at term. Risks and benefits were discussed with the patient prior to surgery. - History of Present Criteria for establishing EDC:: LMP confirmed by 1st trimester US care: good care Ultrasounds: normal 1st trimester US, normal mid trimester US Obstetrical complications: previous Medical complications: none - Labs Blood type: A (-) negative Rubella: immune RPR/VDRL: nonreactive GBS status: negative HBsAG: negative [facility] History I have reviewed the patient's past medical history: Yes Medical History: Denies:: Anxiety, Asthma, Depression *Have you ever received a pneumonia vaccine?: No *Have you received a flu vaccine this season?: Yes Laterality Cases: Bilateral: Other Other Surgeries: Yes: Amputation: No Fractures: No - *Social History Smoking Status: Never smoker # Packs/Day (cigarettes): 1 Alcohol Intake: never Alcohol Intake Frequency:: other Substance Use Type: denies use *Occupational Status:: employed *Travel in the last 8 weeks: None - Psychiatric History Pschychiatric History:: Denies:: Anxiety, Depression Family Hx:: Diabetes, Hypertension, Coronary Artery Disease, Heart Attack Para: 2 Review of Systems - Review of Systems Review of systems:: pertinent systems reviewed and negative unless documented below Meds Home Medications Medication Instructions Recorded Confirmed Type vitamins-iron fumarate 27 1 tab PO DAILY 10/14/19 01/20/20 History mg iron-folic acid 0.8 mg tablet Allergies Allergy/AdvReac Type Severity Reaction Status Date / Time shrimp Allergy Severe Difficulty Verified 01/18/20 10:14 Breathing OB - H&P: Exam - Physical Exam Vital signs: Pulse Resp BP Pulse Ox 89 18 99/58 L 98 01/20/20 06:38 01/20/20 06:38 01/20/20 06:38 01/20/20 06:38 - Constitutional no acute distress - Routine HEENT Exam Head: Present: normocephalic Eye: Present: EOMI, PERRL ENT: Present: mucous membranes moist - Routine Neck Exam Present: supple, full ROM - Routine Respiratory Exam Absent: accessory muscle use (good air entry bilaterally), respiratory distress, wheezes, crackles - Routine Cardiovascular Exam Present: RRR. Absent: murmur - Routine Abdominal Exam Present: soft, normoactive bowel sounds. Absent: tenderness, distended, guarding - Routine Rectal Exam Patient deferred: visual exam, digital exam - Routine Exam Patient deferred: external exam, groin exam, perineal exam - Routine Extremities Exam Present: full ROM. Absent: cyanosis, edema - Routine Skin Exam Present: intact. Absent: cyanosis - Routine Neurological Exam Present: alert, oriented X3 - Routine Psychiatric Exam Present: normal affect OB - Results - Labs Labs: Short CBC 01/20/20 Range/Units 06:00 WBC 7.8 (4.8-10.8) K/mm3 Hgb 10.3 L (12.2-16.2) g/dL Hct 32.0 L (37.0-47.0) % Plt Count 239 (142-424) K/mm3 BMP 01/20/20 06:00 Sodium 135 L Potassium 4.2 Chloride 104 Carbon Dioxide 22 BUN 9 Creatinine 0.50 L Glucose 98 Calcium 8.9 Urine 01/20/20 Range/Units 06:00 Urine Color Yellow (Yellow) Urine Appearance Clear (Clear) Urine pH 7.0 (5.0-8.5) Ur Specific [place] 1.025 (1.005-1.030) Urine Protein Negative (Negative) Urine Glucose (UA) Negative (Negative) OB - A/P Antepartum (1) Previous section complicating Current visit: Yes Status: Acute (2) Delivery by section of full-term Current visit: Yes Status: Acute - Additional Plan Planning to [place]
--- NOTE | 2020-01-20 08:33 | P.PN_ITS ---
[facility] Anesthesia Checklist - Patient Identification Patient Identification: Arm Band - Structural Data Admitted From: Inpatient Planned Operative Procedure/s: repeat c/s Consent for Planned Operative Procedure(s) Verified: Yes Verified Documents: Surgical Consent, History and Physical - NPO Status Verified Time NPO: 00:00 - Additional verifications Anesthesia Reactions: No - Airway Assessment C-Spine Mobility Assessed: Yes (mp2) TMJ Mobility Assessed: Yes Dentition: Good Dentition - Neurological Assessment Level of Consciousness: Awake, Alert - Anesthesia Plan Anesthesia Risk discussed: Yes Anesthesia Plan: Verified ASA Class: II Anesthesia Type: Spinal [facility] History I have reviewed the patient's past medical history: Yes Medical History: Denies:: Anxiety, Asthma, Depression *Have you ever received a pneumonia vaccine?: No *Have you received a flu vaccine this season?: Yes Anesthesia experience/problems:: nac Laterality Cases: Bilateral: Other Other Surgeries: Yes: Cholecystectomy, Amputation: No Fractures: No - *Social History Smoking Status: Never smoker # Packs/Day (cigarettes): 1 Alcohol Intake: never Alcohol Intake Frequency:: other Substance Use Type: denies use *Occupational Status:: employed *Travel in the last 8 weeks: None - Psychiatric History Pschychiatric History:: Denies:: Anxiety, Depression Family Hx:: Diabetes, Hypertension, Coronary Artery Disease, Heart Attack Para: 2
--- NOTE | 2020-01-20 08:34 | P.PN_ITS ---
[facility] Anesthesia Record Part I Intake, IV Amount: 2,000 Estimated blood loss (mL): 600 Urine output (mL): 200 Blood Pressure: 113/58 SaO2: 96 Pulse Rate: 84 Respiratory Rate: 16 Temperature: 97.5 F Patient is:: Drowsy, Stable Stable to PACU at:: 08:30
[2020-01-20 10:30] LABS: Microscopic,Cath URINE MICROSCOPIC (MICROSCOPIC)
[2020-01-20 10:50] LABS: Appearance,Urine/Cath CLEAR (Clear); Bilirubin,Cath Negative (Negative); Blood, Urine/Cath Negative (Negative); Color,Urine/Cath YELLOW (Yellow); Glucose,Urine/Cath (UA) Negative (Negative); Ketones,Urine/Cath Negative (Negative); Leukocyte Esterase,Cath Negative (Negative); Nitrate,Cath Negative (Negative); PH,Urine/Cath 7.5 (5.0-8.5); Protein,Urine/Cath Negative (Negative); Specific Gravity, Urine/Cath 1.015 (1.005-1.030); Urobilinogen,Cath 0.2 EU/dl (0.2)
[2020-01-20 11:57] LABS: Squamous Epithelial Ur./Cath Occasional #/hpf (0-5)
[2020-01-20 11:58] LABS: Transitional Epi Cells,Ur/Cath OCC #/lpf (0-3)
--- NOTE | 2020-01-20 15:44 | P.PN_ITS ---
[facility] Anesthesia Record Part II Discharge Time: 09:07 Destination: Obstetric PACU nurse assessment reviewed?: Yes Patient Condition:: Good Anesthesia Complications:: None Swallowing reflex intact?: Yes Cyanosis?: No Blood Pressure: 102/51 Pulse Rate: 56 Temperature: 97.5 F Mental Status: Alert & Oriented Pain level:: 0 Nausea and/or vomitting:: None Intake, IV Amount: 0
[2020-01-21 04:28] VITALS: BP 98/52; PULSE 77; RESP 18; TEMP 36.4; O2SAT 98
[2020-01-21 08:45] VITALS: BP 141/52; PULSE 89; RESP 19; TEMP 36.7; O2SAT 100
--- NOTE | 2020-01-21 14:18 | HMH.ACPN2 ---
Internal Medicine - PN: Subj *Date: 01/21/20 *Time: 14:18 Interval history: She continues to do well. She is eating and drinking and ambulating. Her pain is reasonably well controlled. She is breast-feeding. Her lochia is normal. Exam Vital signs and Labs for Last 24 Hours: Temp Pulse Resp BP Pulse Ox 98.1 F 89 19 141/52 H 100 01/21/20 08:45 01/21/20 08:45 01/21/20 08:45 01/21/20 08:45 01/21/20 08:45 Laboratory Results - last 24 hr 01/21/20 05:30: Hgb 9.0 L D, Hct 28.0 L I & O for Last 24 hours: Intake & Output 01/19/20 01/20/20 01/21/20 01/22/20 11:59 11:59 11:59 11:59 Intake Total 1999 / 1999 0 / 0 Output Total 200 / 200 800 / 800 Balance 1800 / 1800 -800 / -800 Weight 225 lb Microbiology Reports for the Last 24 Hours: Microbiology 01/20/20 06:00 Urine,Clean Catch Urine Culture - Preliminary NO GROWTH AFTER 24 HOURS - Constitutional no acute distress - *Routine HEENT Exam Head: Present: normocephalic Eye: Present: EOMI, PERRL ENT: Present: mucous membranes moist Assessment and Plan (1) Previous section complicating Current visit: Yes Status: Acute Category: Surgical Code(s): O34.219 - Maternal care for unspecified type scar from previous delivery (2) Delivery by section of full-term Current visit: Yes Status: Acute Category: Medical Code(s): O82 - Encounter for delivery without indication - Assessment and plan all Dx Assessment and Plan for all problems:: She continues to do well. She will to home tomorrow. Her incision is clean and dry.
[2020-01-21 16:00] VITALS: BP 96/54; PULSE 65; RESP 18; TEMP 36.8; O2SAT 97
[2020-01-21 19:40] VITALS: BP 121/74; PULSE 69; RESP 16; TEMP 36.4; O2SAT 97
--- NOTE | 2020-01-21 20:07 | PC.NURSE ---
PT RETURNED HER DEPRESSION SCALE SHEET AND SCORED A 14-POSSIBLE DEPRESSION. IS AWARE OF HER RECENT HX WITH PP DEPRESSION AND SHE WAS ON PROZAC EARLIER IN PREG.AND HE SAID TODAY HE WAS NOT GOING TO START HER BACK ON IT FOR NOW.WILL HAVE DAY SHIFT LET HIM KNOW OF RESULTS OF [place] DEPRESSION SCALE IN MORNING AND HE CAN ADDRESS IT TOMORROW BEFORE HE SENDS HER HOME.WILL CONTINUE TO MONITOR.PT DID CHECK NEVER TO THE QUESTION OF HARMING HER SELF
[2020-01-21 23:31] VITALS: BP 103/60; PULSE 79; RESP 16; TEMP 36.4; O2SAT 98
[2020-01-22 03:49] VITALS: BP 112/73; PULSE 77; RESP 16; TEMP 36.7; O2SAT 97
[2020-01-22 08:30] VITALS: BP 110/72; PULSE 70; RESP 18; TEMP 36.7; O2SAT 100
--- NOTE | 2020-01-22 11:53 | P.DS_ITS ---
General - General Admission date:: 01/20/20 Discharge date: 01/22/20 HPI HPI: POD #2 c section Tolerating regular diet Ambulating and voiding without difficulty Asymptomatic with dmjcu-ov-imkvmeu anemia Rh negative maternal status with also Rh negative and no need for rhogam Score of 15 on depression scale and has a history of depression managed with prozac but discontinued this med 2 weeks ago Counseled about resumption of prozac at this time but patient declines to resume this medication right now She acknowledges that she has prescription available at home and will resume this medication if she feels that she needs it She denies any thoughts of harming herself, her baby or anyone else Hospital Course Rhogam Administration: Not Indicated Objective Vital signs: Temp Pulse Resp BP Pulse Ox 98.1 F 70 18 110/72 100 01/22/20 08:30 01/22/20 08:30 01/22/20 08:30 01/22/20 08:30 01/22/20 08:30 Narrative: CONSTITUTIONAL: no acute distress HEENT: mucous membranes moist PULMONARY: breathing unlabored without audible wheezes CV: no tachycardia or visible JVD; normal LE peripheral pulses ABD: soft, ND; appropriately tender but no rebound/guarding : fundus firm at/below umbilicus SKIN: incision well approximated with no drainage, erythema or induration EXT: 1+ edema LEs NEURO: alert/oriented, no altered mental status PSYCH: appropriate mood and demeanor DS: Diagnosis - Discharge Diagnosis (1) Previous section complicating Status: Acute (2) Delivery by section of full-term infant Status: Acute (3) depression Status: Acute (4) Rh negative status during Status: Acute (5) Acute blood loss anemia Status: Acute Discharge Plan - Patient Discharge Instructions ACTIVITY: Continue current activity DIET: regular diet Additional Instructions: NOTHING IN THE VAGINA FOR 6 WEEKS, NO HEAVY LIFTING OR STRENUOUS ACTIVITY. Patient Instructions: How to Care for a Surgical Wound, Depression, Hemorrhage, DI for , DI for Pre-eclampsia, DI for Surgical Site Infection, DI for Postoperative Pain, [facility] Post Discharge Instructions, Preventing the Spread of Coronavirus Discharge Instructions - Follow up Plan Follow up with: Alfonso Ca MD [Staff Physician] - Disposition: Home, Self-[facility]p Medications: Home Medications Medication Instructions Recorded Confirmed Type vitamins-iron fumarate 27 1 tab PO DAILY 10/14/19 01/20/20 History mg iron-folic acid 0.8 mg tablet Ibuprofen [Motrin 400mg 800 mg PO Q6HP PRN #30 tab 01/22/20 Rx tablet] Oxycodone HCl [OxyIR 5mg tablet] 10 mg PO Q4HP PRN #30 tab 01/22/20 Rx Prescriptions/Medication Reconciliation: New Ibuprofen [Motrin 400mg tablet] 800 mg PO Q6HP PRN #30 tab PRN Reason: Mild To Moderate Pain Oxycodone HCl [OxyIR 5mg tablet] 10 mg PO Q4HP PRN #30 tab PRN Reason: Moderate To Severe Pain Continued vitamins-iron fumarate 27 mg iron-folic acid 0.8 mg tablet 1 tab PO DAILY - Problem Reconciliation Problems Reviewed?: Yes
== END 2020-01-22 13:00 | disposition home or self-care (01) | DRG 788 ==
PROVIDERS: Admitting Provider Nurse Practitioner Obstetrics & Gynecology; PCP Internal Medicine Adolescent Medicine; Visit Provider Nurse Practitioner Obstetrics & Gynecology
PROC: (CPT 59514; principal; 2020-01-20 07:30)
DX: O34.211 Maternal care for low transverse scar from previous cesarean delivery (principal); N85.8 Other specified noninflammatory disorders of uterus; Z3A.39 39 weeks gestation of pregnancy; Z37.0 Single live birth
CPT/HCPCS: 59514; 36415; 59025; 80048; 80305; 81001; 82800; 85014; 85018; 85025; 86850; 87086; J0595; J2405

== ENCOUNTER 2020-02-09 23:04 | Emergency (ER) | payer BC, OTHER, SELFPAY ==
[2020-02-09 23:15] VITALS: BP 119/77; PULSE 67; RESP 14; TEMP 36.8; O2SAT 99; BMI 28.8
--- NOTE | 2020-02-09 23:20 | HMH.EDWNDL ---
ED Disposition Clinical Impression: Laceration Disposition: Home, Self-Care Condition on Discharge: Good Instructions: DI for Laceration Repair Additional Instructions: sutures out about 6 days Referrals: Ac Wisdom MD [Primary Care Provider] - Geovanni Morales MD [Staff Physician] - - Critical Care Critical Care Time: No Attestation: On , the high probability of a clinically significant, sudden or life threatening deterioration of the following system(s) required my full and direct attention, intervention and personal management. The time I documented below is in addition to time spent performing reported procedures but includes the following listed in this critical care notation. Medical Decision Making - Medical Records Medical records reviewed: Yes: I reviewed the patient's medical records. - Aniket Inquiry Pt receiving controlled substance: No Vital Signs: 02/09/20 23:15 Temperature 98.2 F Temperature Source Oral Pulse Rate [Right Brachial] 67 Respiratory Rate 14 Blood Pressure [Right Arm] 119/77 Blood Pressure Mean [Right Arm] 91 Blood Pressure Source [Right Arm] Automatic Cuff Blood Pressure Position [Right Arm] Sitting 02 Sat by Pulse Oximetry 99 Oxygen Delivery Method Room Air - Lab Data Lab results reviewed: Yes: I reviewed the patient's lab results. Orders (Tests/Meds): ED MEDICATIONS Discontinued Medications Generic Name Dose Route Start Last Admin Trade Name Freq PRN Reason Stop Dose Admin Tetanus/Reduced Diphtheria/Acell Pertussis 0.5 ml 02/09/20 23:19 Adacel Tdap 0.5ml Syringe IM 02/09/20 23:20 .ONCE ONE Wound/Laceration HPI - General Chief Complaint: Wound/Laceration Stated Complaint: AO 02/09/20 22:00 small laceration above left eye Time Seen by Provider: 02/09/20 23:20 Mode of Arrival: Ambulatory Source of Information: Patient, Medical Record Limitations: No Limitations Description of Symptoms (Recalled from ER Triage Doc. by RN): Patient reports she fell in the shower and hit her left eye on a hook. - History of Present Illness HPI narrative: acute lt [place] tonight as she fell in shower Onset (ago): hour(s) Location: face Place: home Patient tetanus UTD: No Context: fall Associated symptoms: none - Related Data Home Medications Medication Instructions Recorded Confirmed vitamins-iron fumarate 27 1 tab PO DAILY 10/14/19 02/06/20 mg iron-folic acid 0.8 mg tablet Previous Rx's Medication Instructions Recorded Ibuprofen [Motrin 400mg 800 mg PO Q6HP PRN #30 tab 01/22/20 tablet] Oxycodone HCl [OxyIR 5mg tablet] 10 mg PO Q4HP PRN #30 tab 01/22/20 Oxycodone HCl [Oxycodone 5mg tab 5 mg PO Q6 PRN #30 tab 01/22/20 (IR)] Allergies Allergy/AdvReac Type Severity Reaction Status Date / Time shrimp Allergy Severe Difficulty Verified 02/06/20 11:07 Breathing [facility] History - Hepatitis A Screen Drug use history?: No High risk sexual behaviors?: No History of sexually transmitted infection?: No Currently employed?: No Childcare worker?: No Do you have indoor plumbing?: Yes Do you have electricity?: Yes Attestation statement:: This patient has been screened for Hepatitis A risk factors. I have reviewed the patient's past medical history: Yes Medical History: Denies:: Anxiety, Asthma, Depression Comment: Pt had heart surgery as a child Laterality Cases: Bilateral: Other Other Surgeries: Yes: Cholecystectomy, Amputation: No Fractures: No Comment: Primary c/s 08/20/2016 - Social History Smoking Status: Never smoker # Packs/Day (cigarettes): 1 Alcohol Intake: never Alcohol Intake Frequency:: other Substance Use Type: denies use Occupational Status: employed - Psychiatric History Pschychiatric History:: Denies:: Anxiety, Depression Family Hx:: Diabetes, Hypertension, Coronary Artery Disease, Heart Attack Comment: Previous c/s on 08/20/2016 ROS Obtained: Yes All s
[2020-02-09 23:41] VITALS: BP 109/67; PULSE 65; RESP 14; TEMP 36.8; O2SAT 99
== END 2020-02-09 23:47 | disposition home or self-care (01) ==
PROVIDERS: Emergency Provider Emergency Medicine; PCP Internal Medicine Adolescent Medicine
DX: S01.112A Laceration without foreign body of left eyelid and periocular area, initial encounter (principal); W18.2XXA Fall in (into) shower or empty bathtub, initial encounter; Y92.012 Bathroom of single-family (private) house as the place of occurrence of the external cause; Z23 Encounter for immunization; Z90.49 Acquired absence of other specified parts of digestive tract
CPT/HCPCS: 12011; 90471; 90715; 99282

== ENCOUNTER 2020-02-16 16:09 | Emergency (ER) | payer BC, OTHER, SELFPAY ==
[2020-02-16 17:20] VITALS: BP 109/74; PULSE 78; RESP 18; TEMP 36.7; O2SAT 98; BMI 28.8
[2020-02-16 17:22] VITALS: BP 109/74; PULSE 78; RESP 16; TEMP 36.7; O2SAT 98
== END 2020-02-16 17:22 | disposition home or self-care (01) ==
LOC: UTC 16:21
PROVIDERS: Emergency Provider Nurse Practitioner; PCP Internal Medicine Adolescent Medicine
DX: S01.112D Laceration without foreign body of left eyelid and periocular area, subsequent encounter (principal)

== ENCOUNTER 2020-07-20 18:38 | Emergency (ER) | payer BC, OTHER, SELFPAY ==
[2020-07-20 18:52] VITALS: BP 124/73; PULSE 103; RESP 14; TEMP 36.9; O2SAT 93; BMI 29.0
[2020-07-20 19:02] LABS: UTC Strep Screen (Rapid) Negative (Negative)
--- NOTE | 2020-07-20 19:35 | HMH.EDUTC ---
[facility] Disposition Clinical Impression: Pharyngitis Qualifiers: Pharyngitis/tonsillitis etiology: unspecified etiology Qualified Code(s): J02.9 - Acute pharyngitis, unspecified Disposition: Home, Self-Care Condition on Discharge: Good Instructions: Sore Throat, DI for Strep Throat Additional Instructions: Drink plenty of fluids. Take tylenol or ibuprofen for pain or fever. Take the medications as directed. Follow up with your regular doctor. GO TO THE ER FOR ANY WORSENING SYMPTOMS FOLLOW THE DIRECTIONS ON THE COVID-19 HAND OUT THAT WE GAVE YOU REGARDING SELF-ISOLATION UNTIL YOU KNOW YOUR COVID-19 RESULTS Prescriptions: Azithromycin [Z-Darrel 250mg Tab*] 250 mg PO UD DOSE PK #6 tab Transmission Status: Received by [id number] Referrals: Ac Wisdom MD [Primary Care Provider] - Forms: Work/School Release Time of Disposition: 19:40 Medical Decision Making - Medical Records Medical records reviewed: No: I reviewed the patient's medical records. - Aniket Inquiry Pt receiving controlled substance: No Vital Signs: 07/20/20 18:52 07/20/20 19:42 Temperature 98.5 F 98.5 F Temperature Source Oral Oral Pulse Rate 103 H Pulse Rate [Radial] 103 H Respiratory Rate 14 14 Blood Pressure 124/73 Blood Pressure [Right Arm] 124/73 Blood Pressure Mean [Right Arm] 90 Blood Pressure Source Automatic Cuff Blood Pressure Source [Right Arm] Automatic Cuff Blood Pressure Position Sitting Blood Pressure Position [Right Arm] Sitting 02 Sat by Pulse Oximetry 93 L Oxygen Delivery Method Room Air Room Air - Lab Data Lab results reviewed: Yes: I reviewed the patient's lab results. Lab Results 07/20/20 18:55: Strep Scn Rapid Clinic Negative Orders (Tests/Meds): ORDERS Category Date Time Status Strep Screen Confirmation Stat Micro 07/20/20 18:[address] [facility] [place] [place] HPI - General Stated complaint: sore throat Time Seen by Provider: 07/20/20 19:35 Mode of Arrival: Ambulatory Source of Information: Patient Limitations: No Limitations Description of Symptoms (Recalled from Triage Doc. by RN): sore throat HEENT Symptoms (Recalled from RN notes): Yes Resp Symptoms (Recalled from RN notes): No Skin Symptoms (Recalled from RN notes): No MS Symptoms (Recalled from RN notes): No Functional Status (Recalled from RN notes): wnl - History of Present Illness Provider Complaint: She c/o sore throat for the past 2 days. She gets strep throat fairly easily. - Related Data Home Medications Medication Instructions Recorded Confirmed vitamins-iron fumarate 27 1 tab PO DAILY 10/14/19 05/01/20 mg iron-folic acid 0.8 mg tablet Previous Rx's Medication Instructions Recorded Ibuprofen [Motrin 400mg 800 mg PO Q6HP PRN #30 tab 01/22/20 tablet] bupropion HCl 150 mg 24 hr tablet, 150 mg PO DAILY #30 tab 03/07/20 extended release estradiol 2 mg tablet 2 mg PO DAILY #30 tab 03/07/20 Azithromycin [Z-Darrel 250mg Tab*] 250 mg PO UD DOSE PK #6 tab 07/20/20 Allergies Allergy/AdvReac Type Severity Reaction Status Date / Time shrimp Allergy Severe Difficulty Verified 05/01/20 15:56 Breathing - Worker's Comp Is this a Worker's Comp case?: No [facility] History - Hepatitis A Screen Drug use history?: No High risk sexual behaviors?: No History of sexually transmitted infection?: No Currently employed?: No Childcare worker?: No Do you have indoor plumbing?: Yes Do you have electricity?: Yes Attestation statement:: This patient has been screened for Hepatitis A risk factors. I have reviewed the patient's past medical history: Yes Medical History: Denies:: Anxiety, Asthma, Depression Comment: Pt had heart surgery as a child Laterality Cases: Bilateral: Other Other Surgeries: Yes: Cholecystectomy, Amputation: No Fractures: No Comment: Primary c/s 08/20/2016 - Social History Smoking Status: Never smoker # Packs/Day (cigarettes): 1 Alcohol
[2020-07-20 19:42] VITALS: BP 124/73; PULSE 103; RESP 14; TEMP 36.9; O2SAT 93
== END 2020-07-20 19:46 | disposition home or self-care (01) ==
PROVIDERS: Emergency Provider Nurse Practitioner Family; PCP Internal Medicine Adolescent Medicine
DX: J02.9 Acute pharyngitis, unspecified (principal)
CPT/HCPCS: 87880; 99201

== ENCOUNTER 2020-11-10 09:15 | Emergency (ER) | payer BC, OTHER, SELFPAY ==
[2020-11-10 09:35] VITALS: BP 124/80; PULSE 102; RESP 14; TEMP 36.3; O2SAT 96; BMI 19.8
--- NOTE | 2020-11-10 09:40 | HMH.EDUTC ---
[facility] [place] Clinical Impression: Strep throat Disposition: Home, Self-Care Condition on Discharge: Good Instructions: DI for Strep Throat Additional Instructions: Start antibiotics today be sure to take it as ordered with the full length of time although you should start feeling better in 24-48 hours. Change toothbrush and toothpaste 24-48 hours after starting antibiotics Tylenol or Motrin as needed for fever or pain Encourage fluids, water, Gatorade, Powerade, try cold fluids, popsicles, ice cream will make it feel better You are contagious for 24 hours. Avoid kissing anyone, no eating or drinking after anyone. You are contagious. Follow-up the ER for new or worsening symptoms or no noticeable improvement over the next 24-48 hours. Follow-up with PCP this week. Prescriptions: Azithromycin [Zithromax 250mg tab] 250 mg PO DIRECTED #6 tab Transmission Status: Pending to [id number] Referrals: Ac Wisdom MD [Primary Care Provider] - Time of Disposition: 09:48 Medical Decision Making - Aniket Inquiry Pt receiving controlled substance: No Vital Signs: 11/10/20 09:35 Temperature 97.3 F L Temperature Source Oral Pulse Rate [Right Brachial] 102 H Respiratory Rate 14 Blood Pressure [Right Arm] 124/80 Blood Pressure Mean [Right Arm] 94 Blood Pressure Source [Right Arm] Automatic Cuff Blood Pressure Position [Right Arm] Sitting 02 Sat by Pulse Oximetry 96 Oxygen Delivery Method Room Air [facility] - General Chief complaint: Urgent [facility] Stated complaint: Sore Throat;Has had COVID Time Seen by Provider: 11/10/20 09:40 Mode of Arrival: Ambulatory Source of Information: Patient Limitations: No Limitations Description of Symptoms (Recalled from Triage Doc. by RN): PATIENT C/O SORE THROAT SINCE THIS MORNING HEENT Symptoms (Recalled from RN notes): Yes Resp Symptoms (Recalled from RN notes): No Skin Symptoms (Recalled from RN notes): No MS Symptoms (Recalled from RN notes): No Functional Status (Recalled from RN notes): WNL - History of Present Illness Provider Complaint: 25 yr old female presents for sore throat since 3 am. pt just recovered from covid. - Related Data Previous Rx's Medication Instructions Recorded Azithromycin [Zithromax 250mg 250 mg PO DIRECTED #6 tab 11/10/20 tab] Allergies Allergy/AdvReac Type Severity Reaction Status Date / Time shrimp Allergy Severe Difficulty Verified 05/01/20 15:56 Breathing - Worker's Comp Is this a Worker's Comp case?: No [facility] History - Hepatitis A Screen Drug use history?: No High risk sexual behaviors?: No History of sexually transmitted infection?: No Currently employed?: No Childcare worker?: No Do you have indoor plumbing?: Yes Do you have electricity?: Yes Attestation statement:: This patient has been screened for Hepatitis A risk factors. I have reviewed the patient's past medical history: Yes Medical History: Denies:: Anxiety, Asthma, Depression Comment: Pt had heart surgery as a child Laterality Cases: Bilateral: Other Other Surgeries: Yes: Cholecystectomy, Amputation: No Fractures: No Comment: Primary c/s 08/20/2016 - Social History Smoking Status: Never smoker # Packs/Day (cigarettes): 1 Alcohol Intake: never Alcohol Intake Frequency:: other Substance Use Type: denies use Occupational Status: other Housing: house - Psychiatric History Pschychiatric History:: Denies:: Anxiety, Depression Family Hx:: Diabetes, Hypertension, Coronary Artery Disease, Heart Attack Comment: Previous c/s on 08/20/2016 ROS Obtained: Yes Systems reviewed as appropriate & no additional complaints - Constitutional Constitutional: Reports system reviewed and no additional complaints, except as docu, Denies chills, Denies fever(s) - Eyes Eyes: Reports system reviewed and no additional complaints, except as docu, Denies eye pain - ENT Ears, Nose, Mouth, and Throat: Reports sy
[2020-11-10 09:52] VITALS: BP 124/80; PULSE 102; RESP 14; TEMP 36.3; O2SAT 96
[2020-11-10 09:55] LABS: UTC Strep Screen (Rapid) Positive (Negative)
== END 2020-11-10 10:00 | disposition home or self-care (01) ==
PROVIDERS: Emergency Provider Nurse Practitioner Family; PCP Internal Medicine Adolescent Medicine
DX: J02.0 Streptococcal pharyngitis (principal)
CPT/HCPCS: 87880; 99202; G0463

== ENCOUNTER 2021-03-08 12:54 | Emergency (ER) | payer BC, OTHER, SELFPAY ==
[2021-03-08 13:00] VITALS: BP 114/77; PULSE 76; RESP 20; TEMP 37.1; O2SAT 97; BMI 28.8
--- NOTE | 2021-03-08 13:13 | HMH.EDUTC ---
[facility] [place] Clinical Impression: Otitis externa Qualifiers: Otitis externa type: unspecified type Chronicity: unspecified Laterality: left Qualified Code(s): H60.92 - Unspecified otitis externa, left ear Disposition: Home, Self-Care Condition on Discharge: Good Instructions: DI for Otitis Externa, Otitis Externa, Ofloxacin Otic Additional Instructions: *Monitor Temp, Over the counter Motrin or Tylenol as directed/as needed Tylenol every 4 hours and Motrin every 6 hours (as long as your family doctor has told you that you can take it) for fever or pain. and straight to ER if unable to lower temp less than 101.0 after medication given *Warm salt water gargles may help to soothe the throat *Throat Lozenges *Warm fluids like tea with honey may help to soothe the throat *Sleep elevated *Humidifier/Vaporizer *Flonase 2 sprays in each nostril daily but be aware that it may take 2-3 days before you notice improvement *Bromfed may cause drowsiness. Know how it effects you (your child) before driving, caring for small child, or sending your child to school. Not other antihistamines/allergy medications while taking bromfed Your throat swab was sent for culture. Those results are typically sent to your primary care. Be sure to follow up in 2-3 days with your family doctor/primary care physician if no improvement so they can review those result and treat if necessary. If you don?t have a primary care doctor, I recommend you get one but in the mean time, you will have to return to a walk in clinic Follow up IMMEDIATELY for new or worsening symptoms or no Noticeable improvement over the next 48-72 hours. 911 for difficulty breathing or swallowing Prescriptions: Brompheniramine/Pseudoephed/Dm [Bromfed Dm Cough Syrup] 5 - 10 ml PO Q46H PRN #200 ml PRN Reason: Cough Transmission Status: Pending to [facility] Neomyc/Colist/Hydrocort/Thonzn [Cortisporin-Tc Ear Suspension] 4 drops EAR-LEFT TID 7 Days #1 bottle Transmission Status: Pending to [facility] Referrals: Ac Wisdom MD [Primary Care Provider] - As needed Time of Disposition: 13:33 Medical Decision Making - Aniket Inquiry Pt receiving controlled substance: No Aniket was queried for this patient: No Vital Signs: 03/08/21 13:00 Temperature 98.7 F Temperature Source Oral Pulse Rate [Right Brachial] 76 Respiratory Rate 20 Blood Pressure [Right Arm] 114/77 Blood Pressure Mean [Right Arm] 89 Blood Pressure Source [Right Arm] Automatic Cuff Blood Pressure Position [Right Arm] Sitting 02 Sat by Pulse Oximetry 97 Oxygen Delivery Method Room Air - Lab Data Lab results reviewed: Yes: I reviewed the patient's lab results. [facility] [place] - General Stated complaint: Cough; sore throat; ear ache Time Seen by Provider: 03/08/21 13:14 Mode of Arrival: Ambulatory Source of Information: Patient Limitations: No Limitations Description of Symptoms (Recalled from Triage Doc. by RN): PATIENT C/O COUGH, SCRATCHY THROAT, AND LEFT EAR ACHE X 1 WEEK HEENT Symptoms (Recalled from RN notes): Yes Resp Symptoms (Recalled from RN notes): Yes Skin Symptoms (Recalled from RN notes): No MS Symptoms (Recalled from RN notes): No Functional Status (Recalled from RN notes): WNL - History of Present Illness Provider Complaint: Patient states that she recently got a pool and has been swimming alot State that she thinks she may have swimmers ear State that she has been having pain and tenderness in her left ear for several days that has continued to get worse. State that she has also been having sore throat, hacky cough and nasal drainage State that she was worried she may have strep throat - Related Data Previous Rx's Medication Instructions Recorded Brompheniramine/Pseudoephed/Dm 5 - 10 ml PO Q46H PRN #200 ml 03/08/21 [Bromfed Dm Cough Syrup] Neomyc/Colist/Hydrocort/Thonzn 4 drops EAR-LEFT TID 7 Days #1 03/08/21 [Cortisporin-Tc Ear Suspension] bottle Allerg
[2021-03-08 13:21] VITALS: BP 114/77; PULSE 76; RESP 20; TEMP 37.1; O2SAT 97
[2021-03-08 13:32] LABS: UTC Strep Screen (Rapid) Negative (Negative)
== END 2021-03-08 13:38 | disposition home or self-care (01) ==
PROVIDERS: Emergency Provider Nurse Practitioner; PCP Internal Medicine Adolescent Medicine
DX: H60.92 Unspecified otitis externa, left ear (principal)
CPT/HCPCS: 87880; 99202; G0463; U0003

== ENCOUNTER 2021-04-12 20:23 | Emergency (ER) | payer BC, OTHER, SELFPAY ==
[2021-04-12 20:42] VITALS: BP 131/78; PULSE 78; RESP 18; TEMP 36.8; O2SAT 100; BMI 29.7
[2021-04-12 21:20] LABS: Apearance,Urine Clear (Clear); Bilirubin,Urine Negative (Negative); Blood, Urine Negative (Negative); Color,Urine Yellow (Yellow); Glucose,Urine (UA) Negative (Negative); Ketones,Urine Negative (Negative); Protein,Urine Negative (Negative); Specific Gravity, Urine 1.025 (1.005-1.030); UTC Leukocyte Esterase,Urine Trace (Negative); UTC Nitrate,Urine Negative (Negative); Urobilinogen,Urine 0.2 EU/dl (0.2)
[2021-04-12 21:21] VITALS: BP 131/78; PULSE 78; RESP 18; TEMP 36.8
--- NOTE | 2021-04-12 21:23 | HMH.EDUTC ---
[facility] [place] Disposition Clinical Impression: UTI (urinary tract infection) Qualifiers: Urinary tract infection type: site unspecified Hematuria presence: without hematuria Qualified Code(s): N39.0 - Urinary tract infection, site not specified Disposition: Home, Self-Care Condition on Discharge: Good Instructions: Urinary Tract Infection, Phenazopyridine Additional Instructions: Drink plenty of fluids. Take tylenol or ibuprofen for pain or fever. Take the medications as directed. Follow up with your regular doctor. GO TO THE ER FOR ANY WORSENING SYMPTOMS The pyridium will make your urine turn orange, this is an expected side effect. It will stain your clothes if it comes into contact with them. Prescriptions: Ondansetron [Zofran 4mg ODT] 4 mg PO Q8HP PRN #12 tab.rapdis PRN Reason: Nausea Transmission Status: Received by [facility] Sulfamethoxazole/Trimethoprim [Bactrim DS tablet] 1 each PO BID 7 Days #14 tab Transmission Status: Received by [facility] Phenazopyridine HCl [Pyridium 200mg Tablet] 200 pow PO TID #6 tab Transmission Status: Received by [facility] Referrals: Ac Wisdom MD [Primary Care Provider] - Time of Disposition: 21:32 Medical Decision Making - Medical Records Medical records reviewed: No: I reviewed the patient's medical records. - Aniket Inquiry Pt receiving controlled substance: No Vital Signs: 04/12/21 20:42 04/12/21 21:21 Temperature 98.3 F 98.3 F Temperature Source Oral Oral Pulse Rate 78 Pulse Rate [Right] 78 Respiratory Rate 18 18 Blood Pressure 131/78 Blood Pressure [Right Arm] 131/78 Blood Pressure Mean [Right Arm] 95 Blood Pressure Source [Right Arm] Automatic Cuff Blood Pressure Position [Right Arm] Sitting 02 Sat by Pulse Oximetry 100 Oxygen Delivery Method Room Air - Lab Data Lab results reviewed: Yes: I reviewed the patient's lab results. Lab Results 04/12/21 21:14: Urine Color Yellow, Urine Appearance Clear, Urine pH 7.0, Ur Specific [place] 1.025, Urine Protein Negative, Urine Glucose (UA) Negative, Urine Ketones Negative, Urine Blood Negative, Urine Nitrate Negative, Urine Bilirubin Negative, Urine Urobilinogen 0.2, Ur Leukocyte Esterase Trace Orders (Tests/Meds): ORDERS Category Date Time Status Urine Culture Stat Micro 04/12/21 21:14 Ordered [facility] [place] HPI - General Stated complaint: Possible UTI Time Seen by Provider: 04/12/21 21:15 Mode of Arrival: Ambulatory Source of Information: Patient Limitations: No Limitations Description of Symptoms (Recalled from Triage Doc. by RN): pt c/o burning with urination x1 month. today she started having chills, dizziness, nausea and incontinance of her bladder x1 HEENT Symptoms (Recalled from RN notes): No Resp Symptoms (Recalled from RN notes): No Skin Symptoms (Recalled from RN notes): No MS Symptoms (Recalled from RN notes): No Functional Status (Recalled from RN notes): na - History of Present Illness Provider Complaint: She states that for the past month she has had burning while urination, urinary frequency and some low back pain. She has taken several different doses of antibiotics at home that she had left over and that other people have gave her. She state that when she took those she would get better, but then the symptoms would come back. She does have a history of getting uti's but has not had one in several years. She denies any cough, congestion, fever, chills, body aches. She has had the first dose of the 2 dose regimen for covid-19 (she is unsure which vaccine she took). She has had urinary incontinence once last night. She does not normally have any issues with urinary incontinence. - Related Data Previous Rx's Medication Instructions Recorded Brompheniramine/Pseudoephed/Dm 5 - 10 ml PO Q46H PRN #200 ml 03/08/21 [Bromfed Dm Cough Syrup] Neomyc/Colist/Hydrocort/Thonzn 4 drops EAR-LEFT TID 7 Days #1 03/08/21 [Cortisporin-
== END 2021-04-12 21:41 | disposition home or self-care (01) ==
PROVIDERS: Emergency Provider Nurse Practitioner Family; PCP Internal Medicine Adolescent Medicine
DX: N30.00 Acute cystitis without hematuria (principal)
CPT/HCPCS: 81003; 87086; 87088; 87186; 99202; G0463

== ENCOUNTER 2021-04-21 22:08 | Emergency (ER) | payer BC, OTHER, SELFPAY ==
[2021-04-21 22:09] VITALS: BP 109/60; PULSE 98; RESP 18; TEMP 36.9; O2SAT 97; BMI 28.8
--- NOTE | 2021-04-21 22:39 | CT_ITS ---
PROCEDURE INFORMATION: Exam: CT Abdomen And Pelvis With Contrast Exam date and time: 04/21/2021 10:39 PM Age: 25 years old Clinical indication: Abdominal pain; Localized; Left lower quadrant (llq); Additional info: Llq and lt flank pain TECHNIQUE: Imaging protocol: Computed tomography of the abdomen and pelvis with contrast. Radiation optimization: All CT scans at this facility use at least one of these dose optimization techniques: automated exposure control; mA and/or kV adjustment per patient size (includes targeted exams where dose is matched to clinical indication); or iterative reconstruction. Contrast material: ISOVUE; Contrast volume: 75 ml; Contrast route: IV; COMPARISON: GB US GALLBLADDER (ABD LTD) 11/18/2016 7:05 AM FINDINGS: Lungs: The visualized lung bases are unremarkable. Liver: Possible punctate low attenuation within segment 7 of the liver (series 3, image 37), versus artifact. If is a true lesion, it is too small to characterize, but statistically most likely benign. Gallbladder and bile ducts: Cholecystectomy. No biliary dilation. Pancreas: Unremarkable. No main pancreatic duct dilation. Spleen: There are a few calcified granulomas in the spleen. Adrenal glands: Unremarkable. Kidneys and ureters: Asymmetric swelling of the left kidney with mild perinephric fat stranding. There is a 1.5 x 1.5 x 2.5 cm zone of inhomogeneous enhancement within the posterior left interpolar region (series 3, image 54), most likely pyelonephritis. No hydronephrosis. Right kidney demonstrates homogeneous enhancement and is unremarkable. Stomach and bowel: [id number] amount of solid stool throughout the colon. No colonic wall thickening. Stomach is filled with food debris. No small bowel dilation or obstruction. Appendix: Normal appendix. Intraperitoneal space: No pneumoperitoneum. No ascites. Vasculature: No abdominal aortic aneurysm. Lymph nodes: No enlarged lymph nodes. Urinary bladder: Bladder is partially decompressed, but the bladder wall thickness is slightly greater than expected for underdistention along. Reproductive: Uterus is retroverted. Bones/joints: No acute fracture. Soft tissues: Rectus abdominis diastasis. Small fat containing umbilical hernia. IMPRESSION: 1. Findings most compatible with left pyelonephritis. Correlation with urinalysis is advised. If the clinical presentation is not consistent with a urinary tract infection, then MRI would be recommended for further evaluation. 2. Suggested mild bladder wall thickening, possibly cystitis.
[2021-04-21 22:42] LABS: Microscopic, Urine URINE MICROSCOPIC (MICROSCOPIC)
[2021-04-21 22:44] LABS: Appearance,Urine SL CLOUDY (Clear); Blood, Urine Negative (Negative); Color,Urine ORANGE (Yellow); Glucose,Urine (UA) 1+ (Negative); Ketones,Urine TRACE (Negative); Leukocyte Esterase,Urine TRACE (Negative); Nitrate,Urine POSITIVE (Negative); Protein,Urine 2+ (Negative); Urobilinogen,Urine >=8.0 EU/dl (0.2)
[2021-04-21 22:48] LABS: Bilirubin,Urine Negative (Negative); Urine Pregnancy, HCG Qual. Negative (Negative)
[2021-04-21 22:53] LABS: Bacteria,Urine 1+ /lpf; Mucus,Urine 1+ /lpf; Squamous Epithelial Cell,Urine Occasional #/hpf (0-5); WBC,Urine 20-50 #/hpf (0-3)
[2021-04-21 22:58] LABS: Basophils # 0.1 K/mm3 (0-0.2); Basophils % 0.6 % (0.1-2.0); Eosinophils # 0.1 K/mm3 (0.0-0.4); Eosinophils % 1.1 % (0.1-12.0); Hemoglobin 12.5 g/dL (12.2-16.2); Lymphocytes # 2.2 K/mm3 (0.7-4.5); Lymphocytes % 20.7 % (10-50); Mean Corpuscular HGB Conc 33.9 g/dL (31.8-35.4); Mean Corpuscular Hemoglobin 30.4 pg (27.0-31.2); Mean Corpuscular Volume 89.7 fl (81-99); Mean Platelet Volume 7.4 fl (7.4-10.4); Monocytes # 0.6 K/mm3 (0.1-1.0); Monocytes % 5.4 % (1.7-9.3); Neutrophils # 7.8 K/mm3 (1.8-7.8); Neutrophils % 72.2 % (37.0-80.0); Platelet Count 224 K/mm3 (142-424); Red Blood Count 4.12 M/mm3 (4.20-5.40); Red Cell Distribution Width 13.7 % (11.5-17.5); White Blood Count 10.8 K/mm3 (4.8-10.8)
[2021-04-21 23:04] LABS: Alanine Aminotransferase 31 U/L (12-78); Albumin Level 4.4 g/dl (3.5-5.0); Albumin/Globulin Ratio 1.5 (1.1-1.8); Alkaline Phosphatase 61 U/L (38-126); Amylase 42 U/L (30-110); Aspartate Amino Transferase 31 U/L (14-36); Bilirubin,Total 0.4 mg/dl (0.2-1.3); Blood Urea Nitrogen 11 mg/dl (7-17); Calcium 8.5 mg/dl (8.4-10.2); Carbon Dioxide 25 mmol/L (22.0-30.0); Chloride 102 mmol/L (98-107); Creatinine Clearance Estimated 170 mL/min (50-200); Estimated Glomerular Filt Rate 104 ml/min (>60); GFR (African American) 125 ML/MIN (>60); Glucose 106 mg/dl (74-100); Lipase 31 U/L (23-300); Sodium 139 mmol/L (136-145); Total Protein,Serum 7.4 g/dl (6.3-8.2)
[2021-04-21 23:12] LABS: C-Reactive Protein 109.1 mg/L (0-4)
[2021-04-21 23:24] LABS: Procalcitonin 0.053 ng/mL (0.0-2.0)
[2021-04-21 23:26] LABS: Erythrocyte Sedimentation Rate 46 mm/hr (0-20)
--- NOTE | 2021-04-22 00:01 | HMH.EDNVD ---
ED Disposition Clinical Impression: Pyelonephritis Disposition: Home, Self-Care Condition on Discharge: Good Instructions: DI for Acute Abdominal Pain Referrals: Ac Wisdom MD [Primary Care Provider] - - Critical Care Critical Care Time: No Attestation: On 04/21/21, the high probability of a clinically significant, sudden or life threatening deterioration of the following system(s) required my full and direct attention, intervention and personal management. The time I documented below is in addition to time spent performing reported procedures but includes the following listed in this critical care notation. Medical Decision Making - Medical Records Medical records reviewed: Yes: I reviewed the patient's medical records. - Aniket Inquiry Pt receiving controlled substance: No Vital Signs: 04/21/21 22:09 04/22/21 01:18 04/22/21 01:30 Temperature 98.4 F Temperature Source Oral Pulse Rate 82 82 Pulse Rate [Right] 98 H Respiratory Rate 18 Blood Pressure 102/60 L 97/50 L Blood Pressure [Right Radial Artery] 109/60 L Blood Pressure Mean 72 63 Blood Pressure Mean [Right Radial Artery] 76 02 Sat by Pulse Oximetry 97 97 96 Oxygen Delivery Method Room Air Room Air - Lab Data Lab results reviewed: Yes: I reviewed the patient's lab results. Lab Results 04/21/21 22:35: Urine Color [place], Urine Appearance Sl cloudy, Urine pH 7.0, Ur Specific [place] 1.020, Urine Protein 2+, Urine Glucose (UA) 1+, Urine Ketones Trace, Urine Blood Negative, Urine Nitrate Positive, Urine Bilirubin Negative, Urine Urobilinogen >=8.0, Ur Leukocyte Esterase Trace, Urine WBC 20-50, Ur Squamous Epith Cells Occasional, Urine Bacteria 1+, Urine Mucus 1+ 04/21/21 22:35: Urine HCG, Qual Negative 04/21/21 22:45: WBC 10.8, RBC 4.12 L, Hgb 12.5, Hct 37.0, MCV 89.7, MCH 30.4, MCHC 33.9, RDW 13.7, Plt Count 224, MPV 7.4, Neut % (Auto) 72.2, Lymph % (Auto) 20.7, [place] % (Auto) 5.4, Eos % (Auto) 1.1, Baso % (Auto) 0.6, Neut # (Auto) 7.8, Lymph # (Auto) 2.2, [place] # (Auto) 0.6, Eos # (Auto) 0.1, Baso # (Auto) 0.1, ESR 46 H 04/21/21 22:45: Sodium 139, Potassium 4.0, Chloride 102, Carbon Dioxide 25, Anion Gap 16.0 H, BUN 11, Creatinine 0.70, Estimated Creat Clear 170, Estimated GFR 104, Est GFR ( Amer) 125, Glucose 106 H, Calcium 8.5, Total Bilirubin 0.4, AST 31, ALT 31, Alkaline Phosphatase 61, C-Reactive Protein 109.1 H, Total Protein 7.4, Albumin 4.4, Globulin 3.0, Albumin/Globulin Ratio 1.5, Amylase 42, Lipase 31, Procalcitonin 0.053 Result diagrams: 04/21/21 22:45 04/21/21 22:45 Orders (Tests/Meds): ED MEDICATIONS Generic Name Dose Route Start Last Admin Trade Name Freq PRN Reason Stop Dose Admin Sodium Chloride 1,000 mls @ 999 mls/hr 04/21/21 22:45 04/21/21 23:03 Sod Chlor 0.9% 1000ml Bag IV 04/21/21 23:45 999 mls/hr .Q1H1M YAZMIN Administration Ceftriaxone Sodium 1 gm/ 50 mls @ 100 mls/hr 04/22/21 00:15 04/22/21 00:09 Sodium Chloride IV 05/06/21 00:14 100 mls/hr Q24H YAZMIN Administration Protocol Sodium Chloride 8 ml 04/21/21 22:40 Sodium Chloride 0.9% 10ml Vial IV 05/21/21 22:39 NEEDED PRN dilute pepcid Discontinued Medications Generic Name Dose Route Start Last Admin Trade Name Freq PRN Reason Stop Dose Admin Famotidine 20 mg 04/21/21 22:40 04/21/21 23:03 Famotidine 20mg/2ml Vial IV 04/21/21 22:41 20 mg ONCE ONE Administration Iopamidol 75 ml 04/21/21 23:07 04/21/21 23:07 Iopamidol-370 (76%);100ml Bottle IV 04/21/21 23:08 75 ml ONCE ONE Administration Ketorolac Tromethamine 30 mg 04/21/21 22:40 04/21/21 23:03 Ketorolac 30mg/Ml Vial IV 04/21/21 22:41 30 mg ONCE ONE Administration Metoclopramide HCl 10 mg 04/21/21 22:40 04/21/21 23:03 Metoclopramide Hcl 10mg/2ml Vial IVP 04/21/21 22:41 10 mg ONCE ONE Administration Ondansetron HCl 4 mg 04/21/21 22:40 04/21/21 23:03 Ondansetron 4mg/2ml Vial IV 04/21/21 22:41 4 mg
[2021-04-22 01:18] VITALS: BP 102/60; PULSE 82; O2SAT 97
[2021-04-22 01:30] VITALS: BP 97/50; PULSE 82; O2SAT 96
[2021-04-22 02:43] VITALS: BP 110/75; PULSE 82; RESP 18; TEMP 36.9; O2SAT 96
== END 2021-04-22 02:45 | disposition home or self-care (01) ==
PROVIDERS: Emergency Provider Emergency Medicine; PCP Internal Medicine Adolescent Medicine
DX: N12 Tubulo-interstitial nephritis, not specified as acute or chronic (principal)
CPT/HCPCS: 74177; 80053; 81001; 81025; 82150; 83690; 84145; 85025; 85651; 86140; 87086; 96365; 96366; 96375; 99283; J2405; Q9967

== ENCOUNTER → 2021-11-06 16:41 | Outpatient (CLI) | payer BC, OTHER, SELFPAY | PROVIDERS: PCP Internal Medicine Adolescent Medicine; Visit Provider Nurse Practitioner | DX: Z20.822 Contact with and (suspected) exposure to COVID-19 (principal) | CPT/HCPCS: C9803; U0003; U0005 ==

== ENCOUNTER → 2021-12-03 11:40 | Outpatient (CLI) | payer BC, OTHER, SELFPAY ==
[2021-12-03 12:25] LABS: Basophils # 0.1 K/mm3 (0-0.2); Basophils % 1.1 % (0.1-2.0); Eosinophils # 0.1 K/mm3 (0.0-0.4); Eosinophils % 1.6 % (0.1-12.0); Hematocrit 41.5 % (37.0-47.0); Hemoglobin 13.7 g/dL (12.2-16.2); Lymphocytes # 1.9 K/mm3 (0.7-4.5); Lymphocytes % 24.5 % (10-50); Mean Corpuscular HGB Conc 32.9 g/dL (31.8-35.4); Mean Corpuscular Hemoglobin 30.5 pg (27.0-31.2); Mean Corpuscular Volume 92.7 fl (81-99); Monocytes # 0.2 K/mm3 (0.1-1.0); Monocytes % 3.1 % (1.7-9.3); Neutrophils # 5.4 K/mm3 (1.8-7.8); Neutrophils % 69.7 % (37.0-80.0); Platelet Count 283 K/mm3 (142-424); Red Blood Count 4.48 M/mm3 (4.20-5.40); Red Cell Distribution Width 13.7 % (11.5-17.5); White Blood Count 7.7 K/mm3 (4.8-10.8)
[2021-12-04 07:14] LABS: HIV Screen 4th Generation wRfx Non Reactive (Non Reactive); HSV 1 IgG, Type Spec <0.91 index (0.00-0.90); HSV 2 IgG, Type Spec <0.91 index (0.00-0.90); Rubella Antibodies, IgG 2.23 index (Immune >0.99)
[2021-12-04 08:29] LABS: Hepatitis B Surface Antigen Negative (Negative); Hepatitis C Antibody <0.1 s/co ratio (0.0-0.9)
[2021-12-04 12:16] LABS: Rapid Plasma Reagin Ab Titer Non Reactive (NonRea<1:1)
== END ==
PROVIDERS: Visit Provider Nurse Practitioner Obstetrics & Gynecology
DX: Z34.90 Encounter for supervision of normal pregnancy, unspecified, unspecified trimester (principal)
CPT/HCPCS: 36415; 85025; 86592; 86695; 86703; 86762; 86790; 86850; 87340; 87380; G0432

== ENCOUNTER → 2021-12-06 13:46 | Outpatient (CLI) | payer BC, OTHER, SELFPAY ==
--- NOTE | 2021-12-06 13:46 | US_ITS ---
FINAL REPORT CLINICAL HISTORY: Dates and confirmation of FINDINGS: TRANSABDOMINAL ULTRASOUND, There are 2 intrauterine gestational sacs present. Fetus A has a crown-rump length of 0.5 cm consistent with 6 weeks 2 days. Cardiac activity is confirmed at 108 beats per minute. Fetus B has a crown-rump length of 0.4 cm consistent with 6 weeks 1 day. Cardiac activity is confirmed at 106 beats per minute. The right ovary measures 3.2 cm. The left ovary measures 3.5 cm there are small follicles in both ovaries. IMPRESSION: Living twin pregnancies. Reviewed, Interpreted and Dictated by Robbin Serrano MD Transcribed by Patricio Aleman Authenticated by Robbin Serrano MD on 12/06/2021 04:36:34 PM [facility]
== END ==
PROVIDERS: PCP Internal Medicine Adolescent Medicine; Visit Provider Nurse Practitioner Obstetrics & Gynecology
DX: O26.841 Uterine size-date discrepancy, first trimester (principal)
CPT/HCPCS: 76801

== ENCOUNTER → 2022-02-03 15:00 | Outpatient (CLI) | payer BC, OTHER, SELFPAY | PROVIDERS: Visit Provider Nurse Practitioner Obstetrics & Gynecology | DX: Z34.90 Encounter for supervision of normal pregnancy, unspecified, unspecified trimester (principal) | CPT/HCPCS: 36415 ==

== ENCOUNTER → 2022-02-09 18:07 | Outpatient (CLI) | payer BC, OTHER, SELFPAY | PROVIDERS: PCP Internal Medicine Adolescent Medicine; Visit Provider Nurse Practitioner Family | DX: Z11.1 Encounter for screening for respiratory tuberculosis (principal) | CPT/HCPCS: 86580 ==

== ENCOUNTER → 2022-03-11 12:51 | Outpatient (CLI) | payer BC, OTHER, SELFPAY ==
--- NOTE | 2022-03-11 12:52 | US_ITS ---
FINAL REPORT CLINICAL HISTORY: 20 weeks gestation (TWINS) FINDINGS: Placenta is posterior and grade 1. Fetus A: Cardiac activity is confirmed at 156 bpm. Three-vessel cord with satisfactory umbilical cord insertion. Four-chamber heart is noted. brain and ventricles are unremarkable. Chest and diaphragm are unremarkable. ABDOMEN: There is mild prominence of the left renal pelvis of uncertain significance. Stomach is unremarkable. SPINE: No anomalies identified. Both arms and legs noted. AMNIOTIC FLUID: Appropriate amount. MEASUREMENTS: ULTRASOUND AGE: 20 weeks 2 days. GESTATION AGE: 19 weeks 6 days. ESTIMATED WEIGHT: 340 g GROWTH PERCENTILE: 67 % BPD: 4.9 cm consistent with 20 weeks 6 days. OFD: 5.8 cm consistent with 20 weeks 0 days. HC: 16.8 cm consistent with 19 weeks 3 days. AC: 15.2 cm consistent with 20 weeks 3 days. FL: 3.3 cm consistent with 20 weeks 2 days. CEREBELLUM: 1.9 cm consistent with 20 weeks 0 days. HUMERUS: 3.2 cm consistent with 20 weeks 6 days. HC/AC: 1.1 CI: 85% FL/BPD: 67% FL/AC: 22% Fetus B: Cardiac activity is confirmed at 158 bpm. Three-vessel cord with satisfactory umbilical cord insertion. Four-chamber heart is noted. brain and ventricles are unremarkable. Chest and diaphragm are unremarkable. ABDOMEN: Both kidneys are unremarkable. Stomach is unremarkable. SPINE: No anomalies identified. Both arms and legs noted. AMNIOTIC FLUID: Appropriate amount. MEASUREMENTS: ULTRASOUND AGE: 20 weeks 2 days. GESTATION AGE: 19 weeks 6 days. ESTIMATED WEIGHT: 343 g GROWTH PERCENTILE: 69% BPD: 4.7 cm consistent with 20 weeks 2 days. OFD: 6.1 cm consistent with 20 weeks 4 days. HC: 17 cm consistent with 19 weeks 5 days. AC: 15.4 cm consistent with 20 weeks 5 days. FL: 3.2 cm consistent with 20 weeks 1 days. CEREBELLUM: 2 cm consistent with 20 weeks 3 days. HUMERUS: 3.1 cm consistent with 20 weeks 1 days. HC/AC: 1.1 CI: 78% FL/BPD: 68% FL/AC: 21% IMPRESSION: Twin living IUPs with an ultrasound age of 20 weeks 2 days. Mild prominence of the left renal pelvis of fetus A of uncertain significance. Reviewed, Interpreted and Dictated by Ziyad Adam III, MD Transcribed by Patricio Aleman Authenticated by Ziyad Adam III, MD on 03/11/2022 04:23:03 PM [facility]
== END ==
PROVIDERS: PCP Internal Medicine Adolescent Medicine; Visit Provider Nurse Practitioner Obstetrics & Gynecology
DX: O30.009 Twin pregnancy, unspecified number of placenta and unspecified number of amniotic sacs, unspecified trimester (principal); Z36.0 Encounter for antenatal screening for chromosomal anomalies; Z3A.20 20 weeks gestation of pregnancy
CPT/HCPCS: 76810; 76811

== ENCOUNTER 2022-04-25 10:24 | Outpatient (CLI) | payer BC, OTHER, SELFPAY ==
[2022-04-25 10:51] LABS: Glucose,Fasting 106 mg/dl (74-100)
[2022-04-25 12:05] VITALS: BP 122/74; PULSE 68; RESP 20; TEMP 36.9; O2SAT 95
[2022-04-25 12:24] LABS: Glucose 1 Hour 203 mg/dL (74-100)
== END 2022-04-25 12:20 | disposition home or self-care (01) ==
PROVIDERS: PCP Internal Medicine Adolescent Medicine; Visit Provider Obstetrics & Gynecology
DX: Z34.90 Encounter for supervision of normal pregnancy, unspecified, unspecified trimester (principal)
CPT/HCPCS: 36415; 82951; 96372; J2790

== ENCOUNTER → 2022-05-05 10:17 | Outpatient (CLI) | payer BC, OTHER, SELFPAY ==
[2022-05-05 10:49] LABS: Glucose,Fasting 111 mg/dl (74-100)
[2022-05-05 12:02] LABS: Glucose 1 Hour 215 mg/dL (74-100)
[2022-05-05 13:21] LABS: Glucose 2 Hour 171 mg/dL (74-100)
[2022-05-05 14:04] LABS: Glucose 3 Hour 126 mg/dL (74-100)
== END ==
PROVIDERS: PCP Internal Medicine Adolescent Medicine; Visit Provider Obstetrics & Gynecology
DX: O30.009 Twin pregnancy, unspecified number of placenta and unspecified number of amniotic sacs, unspecified trimester (principal)
CPT/HCPCS: 36415; 82951

== ENCOUNTER → 2022-05-27 09:55 | Outpatient (CLI) | payer BC, OTHER, SELFPAY ==
[2022-05-27 10:36] LABS: Basophils % 0.3 % (0.1-2.0); Eosinophils # 0.1 K/mm3 (0.0-0.4); Eosinophils % 1.1 % (0.1-12.0); Hematocrit 35.1 % (37.0-47.0); Hemoglobin 10.8 g/dL (12.2-16.2); Lymphocytes # 1.9 K/mm3 (0.7-4.5); Lymphocytes % 18.5 % (10-50); Mean Corpuscular HGB Conc 30.8 g/dL (31.8-35.4); Mean Corpuscular Hemoglobin 29.2 pg (27.0-31.2); Mean Corpuscular Volume 94.8 fl (81-99); Mean Platelet Volume 8.6 fl (7.4-10.4); Monocytes # 0.6 K/mm3 (0.1-1.0); Monocytes % 5.5 % (1.7-9.3); Neutrophils # 7.6 K/mm3 (1.8-7.8); Neutrophils % 74.5 % (37.0-80.0); Platelet Count 275 K/mm3 (142-424); Red Cell Distribution Width 15.1 % (11.5-17.5); White Blood Count 10.2 K/mm3 (4.8-10.8)
== END ==
PROVIDERS: PCP Internal Medicine Adolescent Medicine; Visit Provider Nurse Practitioner Obstetrics & Gynecology
DX: Z34.90 Encounter for supervision of normal pregnancy, unspecified, unspecified trimester (principal)
CPT/HCPCS: 36415; 85025

== ENCOUNTER 2022-06-03 16:46 | Outpatient (CLI) | payer BC, OTHER, SELFPAY ==
[2022-06-03 17:04] VITALS: BMI 35.4
[2022-06-03 17:20] LABS: Microscopic, Urine URINE MICROSCOPIC (MICROSCOPIC)
[2022-06-03 17:26] LABS: Appearance,Urine CLEAR (Clear); Blood, Urine Negative (Negative); Color,Urine AMBER (Yellow); Glucose,Urine (UA) Negative (Negative); Ketones,Urine Negative (Negative); Leukocyte Esterase,Urine TRACE (Negative); Nitrate,Urine Negative (Negative); PH,Urine 6.5 (5.0-8.5); Protein,Urine TRACE (Negative); Specific Gravity, Urine 1.025 (1.005-1.030)
[2022-06-03 17:27] VITALS: BP 115/70; PULSE 108; RESP 18; TEMP 36.6; O2SAT 95; BMI 35.4
[2022-06-03 17:34] LABS: Bilirubin,Urine 1+ (Negative)
[2022-06-03 17:38] LABS: Amphetamine/Metha Screen,Urine Negative ng/ml (<1000); Bacteria,Urine 1+ /lpf; Mucus,Urine 4+ /lpf
[2022-06-03 17:39] LABS: Barbiturates Screen,Urine Negative ng/ml (<200); Benzodiazepines Screen,Urine Negative ng/ml (<200)
[2022-06-03 17:40] LABS: Cannabinoid Screen,Urine Negative ng/ml (<50)
[2022-06-03 17:41] LABS: Cocaine Screen,Urine Negative ng/ml (<300); Methadone Screen,Urine Negative ng/ml (<300)
[2022-06-03 17:42] LABS: Opiate Screen,Urine Negative ng/ml (<300)
[2022-06-03 17:43] LABS: Phencyclidine Screen,Urine Negative ng/ml (<25)
[2022-06-03 18:39] LABS: Fetal Membrane Rupture (Rapid) Negative (Negative)
== END 2022-06-03 18:52 | disposition home or self-care (01) ==
LOC: OBOUT 16:48 → OB 16:50
PROVIDERS: PCP Internal Medicine Adolescent Medicine; Visit Provider Nurse Practitioner Obstetrics & Gynecology
DX: O47.03 False labor before 37 completed weeks of gestation, third trimester (principal); Z3A.32 32 weeks gestation of pregnancy
CPT/HCPCS: 59025; 80305; 81001; 84112; 96365; G0463; J2405

== ENCOUNTER 2022-06-13 16:09 | Emergency (ER) | payer BC, OTHER, SELFPAY ==
[2022-06-13 17:20] VITALS: BP 117/64; PULSE 110; RESP 18; TEMP 36.6; O2SAT 97; BMI 35.6
[2022-06-13 17:37] LABS: UTC Strep Screen (Rapid) Negative (Negative)
--- NOTE | 2022-06-13 17:43 | EXP.UTC ---
Discharge Plan Disposition Patient Disposition: Home, Self-Care Condition: Good Prescriptions Prescriptions: No Action ondansetron 4 mg tablet,disintegrating 4 mg PO Q8H PRN (Reason: nausea and vomiting) Qty: 20 1RF ferrous sulfate 325 mg (65 mg iron) tablet,delayed release 325 mg (65 mg iron) tablet,delayed release (DR/EC) 325 mg PO BID Qty: 30 2RF prenat.vits,brandie,rlu-jozm-dyrkz 1 EACH tablet 1 tab PO DAILY Referrals Follow up/Referrals: Ac Wisdom MD [Primary Care Provider] - See instructions Activity Restrictions/Add. Instructions Additional Instructions/Restrictions: *Monitor Temp, Over the counter Motrin or Tylenol as directed/as needed Tylenol every 4 hours and Motrin every 6 hours (as long as your family doctor has told you that you can take it) for fever or pain. and straight to ER if unable to lower temp less than 101.0 after medication given *Warm salt water gargles may help to soothe the throat *Throat Lozenges? *Warm fluids like tea with honey may help to soothe the throat? *Sleep elevated *Humidifier/Vaporizer Your throat swab was sent for culture. Those results are typically sent to your primary care. Be sure to follow up in 2-3 days with your family doctor/primary care physician if no improvement so they can review those result and treat if necessary. If you don?t have a primary care doctor, I recommend you get one but in the mean time, you will have to return to a walk in clinicFollow up IMMEDIATELY for new or worsening symptoms or no Noticeable improvement over the next 48-72 hours. 911 for difficulty breathing or swallowing Clinical Impressions Clinical Impression: Sore throat Instructions Patient Instructions: Sore Throat Discharge ED Provider: Jaylene Briceño [facility] [place] HPI General Stated complaint: Sore throat,neck hurt,DISLA Mode of Arrival: Ambulatory Source of Information: Patient Limitations: No Limitations Time Seen by Provider: 06/13/22 17:43 Description of Symptoms (Recalled from Triage Doc. by RN): PATIENT C/O SORE THROAT AND NECK HEENT Symptoms (Recalled from RN notes): Yes Resp Symptoms (Recalled from RN notes): No Skin Symptoms (Recalled from RN notes): No MS Symptoms (Recalled from RN notes): No Functional Status (Recalled from RN notes): WNL History of Present Illness Provider Complaint: Patient states that she has been having sore scratchy throat and hurts when she swallows States that she was worried that she may have strep throat Related Data Home Medications Medication Instructions Recorded Confirmed prenat.vits,brandie,ism-nstq-cweeh 1 tab PO DAILY Supplement 04/25/22 06/10/22 Previous Rx's Medication Instructions Recorded ondansetron 4 mg disintegrating 4 mg PO Q8H PRN nausea and 04/16/22 tablet vomiting #20 tabs ferrous sulfate 325 mg (65 mg 325 mg PO BID #30 tabs 05/27/22 iron) tablet,delayed release Allergies Allergy/AdvReac Type Severity Reaction Status Date / Time shrimp Allergy Severe Difficulty Verified 06/10/22 08:35 Breathing Worker's Comp Is this a Worker's Comp case?: No PFSH PFSH Surgical History History of section History of cholecystectomy Social History (Updated 06/13/22 @ 17:40 by Lorrie Meyers RN) Smoking Status: Never smoker alcohol intake: never substance use type: denies use current occupational status: employed Travel in the last 8 weeks: None housing: house ROS Obtained: Yes All systems reviewed & no additional complaints except as documented and Yes Systems reviewed as appropriate & no additional complaints except as documented ENT Ears, Nose, Mouth, and Throat: Reports system reviewed and no additional complaints, except as documented, Reports as per HPI and Reports sore throat Cardiovascular Cardiovascular: Reports system reviewed and no additional complaints, except as documented and Reports as
[2022-06-13 18:10] VITALS: BP 117/64; PULSE 110; RESP 18; TEMP 36.6; O2SAT 97
== END 2022-06-13 18:16 | disposition home or self-care (01) ==
PROVIDERS: Emergency Provider Nurse Practitioner; PCP Internal Medicine Adolescent Medicine
DX: J02.9 Acute pharyngitis, unspecified (principal); R11.2 Nausea with vomiting, unspecified; R51.9 Headache, unspecified; M54.2 Cervicalgia; Z79.899 Other long term (current) drug therapy; Z91.018 Allergy to other foods
CPT/HCPCS: 87880; 99213; G0463

== ENCOUNTER → 2022-07-07 10:21 | Outpatient (CLI) | payer BC, OTHER, SELFPAY ==
--- NOTE | 2022-07-07 10:21 | US_ITS ---
FINAL REPORT CLINICAL HISTORY: twin FINDINGS: Visualized anatomy is within normal limits. movement is noted. Fetus a heart rate is 132. Fetus B heart rate is 142. Estimated gestational age 36 weeks 5 days. BIOPHYSICAL PROFILE: There are 2 fetuses. There is breech presentation of both. The placenta is posterior. FETUS A: TONE: 2 FLUID: 2 BREATHIN BODY MOVEMENTS: 2 BIOPHYSICAL SCORE: 8 FETUS B: TONE: 2 FLUID: 2 BREATHIN BODY MOVEMENTS: 2 BIOPHYSICAL SCORE: 8 There is a normal amount of amniotic fluid present. IMPRESSION: Twin pregnancies in the breech position. Biophysical score of 8/8 of both. Estimated gestational age 36 weeks 5 days. Reviewed, Interpreted and Dictated by Mirela Reich MD Transcribed by Patricio Aleman Authenticated and [facility]
== END ==
PROVIDERS: PCP Internal Medicine Adolescent Medicine; Visit Provider Obstetrics & Gynecology
DX: O30.009 Twin pregnancy, unspecified number of placenta and unspecified number of amniotic sacs, unspecified trimester (principal)
CPT/HCPCS: 76819

== ENCOUNTER → 2022-07-14 11:17 | Outpatient (CLI) | payer BC, OTHER, SELFPAY ==
[2022-07-14 11:46] LABS: Basophils # 0.1 K/mm3 (0-0.2); Basophils % 1.3 % (0.1-2.0); Eosinophils # 0.2 K/mm3 (0.0-0.4); Hematocrit 30.8 % (37.0-47.0); Lymphocytes # 1.5 K/mm3 (0.7-4.5); Lymphocytes % 19.4 % (10-50); Mean Corpuscular HGB Conc 32.5 g/dL (31.8-35.4); Mean Corpuscular Hemoglobin 28.1 pg (27.0-31.2); Mean Corpuscular Volume 86.4 fl (81-99); Mean Platelet Volume 9.7 fl (7.4-10.4); Monocytes # 0.4 K/mm3 (0.1-1.0); Monocytes % 5.5 % (1.7-9.3); Neutrophils # 5.5 K/mm3 (1.8-7.8); Neutrophils % 71.8 % (37.0-80.0); Platelet Count 232 K/mm3 (142-424); Red Blood Count 3.56 M/mm3 (4.20-5.40); Red Cell Distribution Width 16.2 % (11.5-17.5); White Blood Count 7.7 K/mm3 (4.8-10.8)
[2022-07-14 12:19] LABS: Alanine Aminotransferase 12 U/L (12-78); Albumin/Globulin Ratio 1.2 (1.1-1.8); Alkaline Phosphatase 250 U/L (38-126); Anion Gap 11.2 mEq/L (5-15); Aspartate Amino Transferase 24 U/L (14-36); Bilirubin,Total 0.3 mg/dl (0.2-1.3); Blood Urea Nitrogen 9 mg/dl (7-17); Calcium 8.2 mg/dl (8.4-10.2); Carbon Dioxide 26 mmol/L (22.0-30.0); Chloride 104 mmol/L (98-107); Estimated Glomerular Filt Rate 150 ml/min (>60); GFR (African American) 182 ML/MIN (>60); Globulin 2.5 g/dL (1.3-3.2); Glucose 99 mg/dl (74-100); Potassium 4.2 mmoL/L (3.5-5.1); Sodium 137 mmol/L (136-145); Total Protein,Serum 5.5 g/dl (6.3-8.2)
== END ==
LOC: LAB 11:18 → LAB.DROPOF 07-15 06:04
PROVIDERS: PCP Internal Medicine Adolescent Medicine; Visit Provider Nurse Practitioner Obstetrics & Gynecology
DX: Z01.812 Encounter for preprocedural laboratory examination; Z20.822 Contact with and (suspected) exposure to COVID-19; O30.043 Twin pregnancy, dichorionic/diamniotic, third trimester
CPT/HCPCS: 36415; 80053; 85025; 86403; C9803; U0003; U0005

== ENCOUNTER 2022-07-16 05:03 | Inpatient (IN) | payer BC, OTHER, SELFPAY ==
[2022-07-16] VITALS (8 sets, daily range): BP systolic 113–130; BP diastolic 72–78; PULSE 73–103; RESP 15–18; TEMP 36.1–36.8; O2SAT 96–100; BMI 37.0
[2022-07-16 05:47] LABS: Coronavirus 19, PCR Not Detected (NotDetected); Influenza A, PCR Not Detected (NotDetected); Influenza B, PCR Not Detected (NotDetected); Microscopic, Urine URINE MICROSCOPIC (MICROSCOPIC)
[2022-07-16 05:53] LABS: Basophils # 0.1 K/mm3 (0-0.2); Basophils % 1.2 % (0.1-2.0); Eosinophils # 0.2 K/mm3 (0.0-0.4); Hematocrit 31.4 % (37.0-47.0); Hemoglobin 10.2 g/dL (12.2-16.2); Lymphocytes % 20.3 % (10-50); Mean Corpuscular HGB Conc 32.6 g/dL (31.8-35.4); Mean Corpuscular Hemoglobin 28.2 pg (27.0-31.2); Mean Corpuscular Volume 86.4 fl (81-99); Mean Platelet Volume 9.6 fl (7.4-10.4); Monocytes # 0.5 K/mm3 (0.1-1.0); Monocytes % 4.9 % (1.7-9.3); Neutrophils # 7.1 K/mm3 (1.8-7.8); Neutrophils % 71.7 % (37.0-80.0); Platelet Count 249 K/mm3 (142-424); Red Blood Count 3.63 M/mm3 (4.20-5.40); Red Cell Distribution Width 16.4 % (11.5-17.5); White Blood Count 9.9 K/mm3 (4.8-10.8)
[2022-07-16 05:57] LABS: Appearance,Urine CLEAR (Clear); Bilirubin,Urine Negative (Negative); Blood, Urine Negative (Negative); Color,Urine YELLOW (Yellow); Glucose,Urine (UA) Negative (Negative); Ketones,Urine 1+ (Negative); Leukocyte Esterase,Urine 1+ (Negative); Nitrate,Urine Negative (Negative); PH,Urine 7.5 (5.0-8.5); Protein,Urine Negative (Negative)
[2022-07-16 06:00] LABS: Chloride 105 mmol/L (98-107)
[2022-07-16 06:01] LABS: Potassium 4.2 mmoL/L (3.5-5.1); Sodium 137 mmol/L (136-145)
[2022-07-16 06:04] LABS: Anion Gap 11.2 mEq/L (5-15); Blood Urea Nitrogen 11 mg/dl (7-17); Calcium 8.2 mg/dl (8.4-10.2); Carbon Dioxide 25 mmol/L (22.0-30.0); Creatinine Clearance Estimated 250 mL/min (50-200); Estimated Glomerular Filt Rate 122 ml/min (>60); GFR (African American) 147 ML/MIN (>60); Glucose 83 mg/dl (74-100)
[2022-07-16 06:10] LABS: Amphetamine/Metha Screen,Urine Negative ng/ml (<1000); Barbiturates Screen,Urine Negative ng/ml (<200)
[2022-07-16 06:11] LABS: Benzodiazepines Screen,Urine Negative ng/ml (<200)
[2022-07-16 06:12] LABS: Cannabinoid Screen,Urine Negative ng/ml (<50); Cocaine Screen,Urine Negative ng/ml (<300)
[2022-07-16 06:13] LABS: Methadone Screen,Urine Negative ng/ml (<300)
[2022-07-16 06:14] LABS: Opiate Screen,Urine Negative ng/ml (<300); Phencyclidine Screen,Urine Negative ng/ml (<25)
[2022-07-16 06:22] LABS: Bacteria,Urine 1+ /lpf
--- NOTE | 2022-07-16 07:11 | P.PN_ITS ---
[facility] Surgical History History of section History of cholecystectomy Social History Smoking Status: Never smoker alcohol intake: never substance use type: denies use current occupational status: employed Travel in the last 8 weeks: None housing: house [facility] Anesthesia Checklist Patient Identification Patient Identification: Arm Band and Verbal (Name & ) Structural Data Admitted From: Home Planned Operative Procedure/s: Repeat C/S Consent for Planned Operative Procedure(s) Verified: Yes NPO Status Verified Time NPO: 00:00 Chart Verification Results Verified: CBC and BMP Additional verifications Fingerstick Blood Glucose: 83 Patient : Yes Anesthesia Reactions: No Airway Assessment C-Spine Mobility Assessed: Yes TMJ Mobility Assessed: Yes Dentition: Good Dentition Neurological Assessment Level of Consciousness: Awake Hx Seizures: No Numbness or tingling in extremities: No Anesthesia Plan Anesthesia Risk discussed: Yes Anesthesia Plan: Verified ASA Class: II Anesthesia Type: General
--- NOTE | 2022-07-16 07:18 | EXP.HP ---
History of Present Illness *Admission Date: 07/16/22 *Reason for visit:: Twin , previous sections *History of present illness: She is a 27-year-old 4 para 3 who has had 3 previous section. She is with twins. She is 38 weeks gestational age. She is here for repeat lower segment transverse section. [facility] Surgical History History of section History of cholecystectomy Social History Smoking Status: Never smoker alcohol intake: never substance use type: denies use current occupational status: employed Travel in the last 8 weeks: None housing: house Review of Systems Review of Systems Review of systems:: pertinent systems reviewed and negative unless documented below Meds Home Medications and Allergies Home Medications Medication Instructions Recorded Confirmed Type ondansetron 4 mg disintegrating 4 mg PO Q8H PRN nausea and 04/16/22 07/16/22 Rx tablet vomiting #20 tabs prenat.vits,brandie,cxb-aime-lnfgs 1 tab PO DAILY Supplement 04/25/22 07/16/22 History hydroxyzine pamoate 25 mg capsule 25 mg PO TID PRN itching #60 caps 07/14/22 07/16/22 Rx (Vistaril) ferrous sulfate 325 mg PO BID Supplement 07/16/22 07/16/22 History terconazole 0.8 % vaginal cream 1 appful vaginal HS ITCHING 07/16/22 07/16/22 History New Prescriptions to Start Prescriptions: Allergies Allergy/AdvReac Type Severity Reaction Status Date / Time shrimp Allergy Severe Difficulty Verified 07/14/22 09:32 Breathing Exam Data for Last 24 hours Vital signs and Labs for Last 24 Hours: Temp Pulse Resp BP Pulse Ox 98.3 F 103 H 17 130/72 100 07/16/22 05:11 07/16/22 05:11 07/16/22 05:11 07/16/22 05:11 07/16/22 05:11 Laboratory Results - last 24 hr 07/16/22 05:35: WBC 9.9 D, RBC 3.63 L, Hgb 10.2 L, Hct 31.4 L, MCV 86.4, MCH 28.2, MCHC 32.6, RDW 16.4, Plt Count 249, MPV 9.6, Neut % (Auto) 71.7, Lymph % (Auto) 20.3, [place] % (Auto) 4.9, Eos % (Auto) 2.0, Baso % (Auto) 1.2, Neut # (Auto) 7.1, Lymph # (Auto) 2.0, [place] # (Auto) 0.5, Eos # (Auto) 0.2, Baso # (Auto) 0.1 07/16/22 05:35: Sodium 137, Potassium 4.2, Chloride 105, Carbon Dioxide 25, Anion Gap 11.2, BUN 11, Creatinine 0.60, Estimated Creat Clear 250, Estimated GFR 122, Est GFR ( Amer) 147, Glucose 83, Calcium 8.2 L 07/16/22 05:35: Blood Type A Negative, Antibody Screen Negative, Crossmatch (AHG) See Detail 07/16/22 05:40: Urine Color Yellow, Urine Appearance Clear, Urine pH 7.5, Ur Specific [place] 1.020, Urine Protein Negative, Urine Glucose (UA) Negative, Urine Ketones 1+, Urine Blood Negative, Urine Nitrate Negative, Urine Bilirubin Negative, Urine Urobilinogen 4.0, Ur Leukocyte Esterase 1+ A, Urine WBC 5-10, Urine Bacteria 1+ 07/16/22 05:40: SARS-CoV-2 (PCR) Not detected, Influenza A Untype (PCR) Not detected, Influenza Type B (PCR) Not detected 07/16/22 05:40: Urine Opiates Screen Negative, Urine Methadone Screen Negative, Ur Barbituates Screen Negative, Ur Phencyclidine Scrn Negative, Ur Amphetamines Screen Negative, U Benzodiazepines Scrn Negative, Urine Cocaine Screen Negative, U Marijuana (THC) Screen Negative I & O for Last 24 hours: Intake & Output 07/13/22 07/14/22 07/15/22 07/16/22 11:59 11:59 11:59 11:59 Weight 244 lb Constitutional Constitutional: no acute distress *Routine HEENT Exam Head: Present normocephalic Eye: Present EOMI and PERRL ENT: Present mucous membranes moist *Routine Neck Exam Neck: Present supple and full ROM *Routine Respiratory Exam Respiratory: Absent accessory muscle use (good air entry bilaterally), wheezes or crackles *Routine Cardiovascular Exam Cardiovascular: Present RRR; Absent murmur *Routine Abdominal Exam Abdominal: Present soft and normoactive bowel sounds; Absent tenderness, rebound, guarding or mass *Routine Rectal Exam Rectal:
--- NOTE | 2022-07-16 08:19 | SUR.OPER ---
0816- invasive procedures tap block start time 0820-end time for invasive procedures tap block
--- NOTE | 2022-07-16 08:28 | EXP.ANES.I ---
[facility] Anesthesia Record Part I Anesthesia Record I Intake, IV Amount: 1,000 Estimated blood loss (mL): 800 Urine output (mL): 50 Blood Pressure: 115/76 SaO2: 96 Pulse Rate: 80 Respiratory Rate: 15 Temperature: 97 F Patient is:: Awake Stable to PACU at:: 08:27
--- NOTE | 2022-07-16 08:45 | EXP.OP.NOTE ---
Date of procedure: 07/16/22 Pre-op Diagnosis:: Term , previous section, twin , diet-controlled gestational diabetes Post-op Diagnosis:: Term , previous section, twin , diet-controlled gestational diabetes Procedure performed:: Repeat lower segment transverse section Surgeon:: Alfonso Ca MD Drawing In Hand(s):: Dr. Srivastava ENROLLMENT ADVISOR:: Johann Goodson Anesthesia: spinal Estimated blood loss (mL): 800 Clinical Note:: She is a 27-year-old 4 para 3 at 38 weeks gestational age. She has a twin gestation. She has had 3 previous sections. As result of that she was offered repeat lower segment transverse section at term. Operative findings:: She delivered to liveborn male children. Baby A was born at 745 and had Apgars of 7 at 1 minute and 9 at 5 minutes. The baby was in the talita breech presentation. The baby weighed 7 pounds 1 ounce. Baby B was born at 7:46 AM and had Apgars of 7 at 1 minute and 9 at 5 minutes. Baby B weighed 6 pounds 10 ounces. There was a loose nuchal cord around the neck of baby B. Baby B was in the cephalic presentation. There was clear amniotic fluid around both babies. There was a single placenta with 2 separate amniotic sacs. Upon entering the abdominal cavity it was noted that the lower segment was completely absent. There was just a peritoneal window. Operative note:: She was taken to the operating room where spinal anesthesia was found be adequate. She was prepped and draped in normal sterile fashion in the supine position with a leftward tilt. A Matson catheter was in the bladder. A Pfannenstiel skin incision was made with knife then carried through to the underlying layer of fascia with cautery. The fascia was opened in the midline with cautery and extended laterally using Miller scissors. Cotton clamps were applied to the superior aspect of the fascial incision which was tented up and the underlying rectus muscles dissected off using cautery. The Cotton clamps were then applied to the inferior aspect of the fascial incision which in a similar fashion was tented up and the underlying rectus muscles dissected off using cautery. The rectus muscles were then in the midline, the peritoneum identified, and entered sharply with Metzenbaum scissors. This incision was then extended superiorly and inferiorly with cautery. We had good visualization of the bladder inferiorly. We then inserted an Hunter retractor. The bladder peritoneum was then opened in the midline and extended laterally using Metzenbaum scissors. A bladder flap was created digitally. Transverse incision was made through the very thin peritoneal window to the amnion. This incision was then extended laterally using fingers as traction. The amnion was entered sharply with knife. There was clear amniotic fluid. The 's breech was then delivered atraumatically. This was followed by the after coming body and after coming head. The baby was vigorous. The oropharynx and nasopharynx were bulb suction. We then doubly clamped the cord and the baby was handed off to Dr. Reyna who assigned Apgars of 7 at 1 minute and 9 at 5 minutes. We then entered the amnion of baby B sharply with knife. The infant's head was delivered followed by the rest the 's body atraumatically. There was a loose nuchal cord that was easily reduced. The oropharynx and nasopharynx were bulb suctioned. The cord was then doubly clamped and cut. The infant was then handed off to Dr. Way who assigned Apgars of 7 at 1 minute and 9 at 5 minutes. We then obtained cord blood from both umbilical cords. Using gentle traction on the cord and countertraction on the fundus I was able to easily deliver the placenta intact. The placenta was fused and there were 2 normal-appearing three-vessel cords attached to the placenta. There was 2 separate sacs. The uterus was then cleared of clots and debris . The uterine incision
--- NOTE | 2022-07-16 09:13 | SUR.PHASEI ---
0856- detailed report called to yessenia coy in OB 0858- pt left in stable condition with yessenia coy an yessenia hendricks in pt room by yessenia villalta and yessenia herrera
--- NOTE | 2022-07-16 09:19 | SUR.OPER ---
0745- viable baby A/boy TOB 0746- Viable baby b/boy TOB
--- NOTE | 2022-07-16 09:28 | P.CONPHA_ITS ---
[facility] VTE Monitoring Patient Demographics Admission date: 07/16/22 Report Date: 07/16/22 Time: 09:29 Patient Allergies shrimp Allergy (Severe, Verified 07/14/22 09:32) Difficulty Breathing Height: 1.73 m Weight: 110.677 kg Current Active Problems (Updated 06/13/22 @ 17:35 by Lorrie Meyers RN) Type A blood, Rh negative (Acute) delivery due to previous difficult delivery, delivered, current hospitalization (Acute) Twin (Chronic) History of (Acute) VTE Risk Labs: VTE Related Lab Results Hgb 10.2 g/dL (12.2-16.2) L 07/16/22 05:35 Hct 31.4 % (37.0-47.0) L 07/16/22 05:35 Plt Count 249 K/mm3 (142-424) 07/16/22 05:35 BUN 11 mg/dl (7-17) 07/16/22 05:35 Creatinine 0.60 mg/dl (0.52-1.04) 07/16/22 05:35 Estimated Creat Clear 250 mL/min (50-200) 07/16/22 05:35 Was VTE Risk Assessment Performed: No Clinical Trial Participant: No Prophylaxis VTE Prophylaxis Ordered?: Yes Types of VTE Prophylaxis: TEDS Knee High Location of Applied Device: Bilateral Lower Extremeties VTE Diagnosis Confirmed Treatment or plan recommended: Add ICD and/or TEDs (, DVT PPX RECOMMENDED)
--- NOTE | 2022-07-16 09:36 | HMH.PHAINT1 ---
Pharmacy Intervention Comments: MEDICATION RECONCILIATION COMPLETE USING LIST FROM MOST RECENT MD OFFICE VISIT, EXTERNAL PHARMACY FILL HISTORY.
[2022-07-16 10:13] LABS: Microscopic,Cath URINE MICROSCOPIC (MICROSCOPIC)
[2022-07-16 10:49] LABS: Appearance,Urine/Cath CLEAR (Clear); Blood, Urine/Cath Negative (Negative); Color,Urine/Cath DK YELLOW (Yellow); Glucose,Urine/Cath (UA) Negative (Negative); Ketones,Urine/Cath 1+ (Negative); Leukocyte Esterase,Cath Negative (Negative); Nitrate,Cath Negative (Negative); PH,Urine/Cath 7.5 (5.0-8.5); Protein,Urine/Cath TRACE (Negative)
[2022-07-16 10:58] LABS: Bilirubin,Cath Negative (Negative)
--- NOTE | 2022-07-16 10:58 | EXP.ANES.II ---
[facility] Anesthesia Record Part II Anesthesia Record Part II Discharge Time: 08:57 Destination: Obstetric PACU nurse assessment reviewed?: Yes Patient Condition:: Good Anesthesia Complications:: None Swallowing reflex intact?: Yes Cyanosis?: No Blood Pressure: 113/78 Pulse Rate: 77 Temperature: 97 F Mental Status: Alert & Oriented Pain level:: 0 Nausea and/or vomitting:: None Intake, IV Amount: 0
[2022-07-16 11:01] LABS: RBC,Urine/Cath Occasional # /hpf (0-3); Squamous Epithelial Ur./Cath Occasional #/hpf (0-5); WBC,Urine/Cath Occasional #/hpf (0-3)
[2022-07-17 07:23] LABS: Hematocrit 28.6 % (37.0-47.0); Hemoglobin 9.3 g/dL (12.2-16.2)
[2022-07-17 08:13] VITALS: BP 115/56; PULSE 66; RESP 18; TEMP 36.4; O2SAT 100
--- NOTE | 2022-07-17 09:56 | EXP.ACUTE.PN ---
Subjective *Date: 07/17/22 *Time: 09:56 Interval history: She is 1 day postop from a for twins. She is doing very well. She had a T AP block and this seems to be helping with her discomfort. Her hemoglobin is 9.3. Preoperatively it was 10.1. Medical Exam Vital signs and Labs for Last 24 Hours: Temp Pulse Resp BP Pulse Ox 97.5 F L 66 18 115/56 L 100 07/17/22 08:13 07/17/22 08:13 07/17/22 08:13 07/17/22 08:13 07/17/22 08:13 Laboratory Results - last 24 hr 07/16/22 05:40: Urine Color Yellow, Urine Appearance Clear, Urine pH 7.5, Ur Specific [place] 1.020, Urine Protein Negative, Urine Glucose (UA) Negative, Urine Ketones 1+, Urine Blood Negative, Urine Nitrate Negative, Urine Bilirubin Negative, Urine Urobilinogen 4.0, Ur Leukocyte Esterase 1+ A, Urine WBC 5-10, Urine Bacteria 1+ 07/16/22 05:40: Urine Opiates Screen Negative, Urine Methadone Screen Negative, Ur Barbituates Screen Negative, Ur Phencyclidine Scrn Negative, Ur Amphetamines Screen Negative, U Benzodiazepines Scrn Negative, Urine Cocaine Screen Negative, U Marijuana (THC) Screen Negative 07/16/22 07:25: Urine Color Dk yellow, Urine Appearance Clear, Urine pH 7.5, Ur Specific [place] 1.020, Urine Protein Trace, Urine Glucose (UA) Negative, Urine Ketones 1+, Urine Blood Negative, Urine Nitrate Negative, Urine Bilirubin Negative, Urine Urobilinogen 4.0, Ur Leukocyte Esterase Negative, Urine RBC Occasional, Urine WBC Occasional, Ur Squamous Epith Cells Occasional, Urine Bacteria None 07/17/22 06:42: Hgb 9.3 L, Hct 28.6 L I & O for Labs for Last 24 Hours: Intake & Output 07/14/22 07/15/22 07/16/22 07/17/22 11:59 11:59 11:59 11:59 Intake Total 1000 / 1000 Output Total 130 / 130 Balance 870 / 870 Weight 244 lb Microbiology Reports for the Last 24 Hours: Microbiology 07/16/22 05:40 Urine,Clean Catch Urine Culture - Preliminary Gram Negative Rods Head: Present atraumatic and normocephalic Neck: Present normal inspection Respiratory: Present normal respiratory effort GI: Present soft; Absent tenderness Comments:: Her incision is clean and dry. She denies any tenderness. Assessment and Plan *Assessment and plan (1) delivery due to previous difficult delivery, delivered, current hospitalization: Status: Acute Category: Medical Code(s): O82 - Encounter for delivery without indication; Z87.59 - Personal history of other complications of , childbirth and the puerperium (2) PUPP (pruritic urticarial papules and plaques of ): Status: Acute Category: Medical Code(s): O26.86 - Pruritic urticarial papules and plaques of (PUPPP) (3) Twin : Status: Chronic Qualifiers: Multiple gestation type: dichorionic and diamniotic Trimester: third trimester Qualified Code(s): O30.043 - Twin , dichorionic/diamniotic, third trimester Category: Medical Code(s): O30.009 - Twin , unspecified number of placenta and unspecified number of amniotic sacs, unspecified trimester (4) History of : Status: Acute Category: Surgical Code(s): Z98.891 - History of uterine scar from previous surgery Plan She is 1 day post for twins. She is doing very well. Her pain is well controlled. Her blood counts are stable. We will likely send her home tomorrow.
--- NOTE | 2022-07-17 14:01 | P.PN_ITS ---
[facility] Surgical History History of section History of cholecystectomy Social History Smoking Status: Never smoker alcohol intake: never substance use type: denies use current occupational status: employed Travel in the last 8 weeks: None housing: house [facility] Anesthesia Checklist Patient Identification Patient Identification: Arm Band and Verbal (Name & ) Structural Data Admitted From: Home Planned Operative Procedure/s: Labor epidural Consent for Planned Operative Procedure(s) Verified: Yes NPO Status Verified Time NPO: 13:00 (Ice chips) Chart Verification Results Verified: CBC and BMP Additional verifications Patient : Yes Anesthesia Reactions: No Airway Assessment C-Spine Mobility Assessed: Yes TMJ Mobility Assessed: Yes Dentition: Good Dentition Neurological Assessment Level of Consciousness: Awake Hx Seizures: No Numbness or tingling in extremities: No Anesthesia Plan Anesthesia Risk discussed: Yes Anesthesia Plan: Verified ASA Class: III Anesthesia Type: Epidural
--- NOTE | 2022-07-18 08:10 | EXP.DC.SUM ---
General Admission date:: 07/16/22 Discharge date: 07/18/22 HPI HPI HPI: She is a 27-year-old 4 para 3 who has had 3 previous section. She is with twins. She is 38 weeks gestational age. She is here for repeat lower segment transverse section. Hospital Course Hospital Course Hospital Course: On July 16, 2022 she underwent a repeat lower segment transverse section. She delivered twin boys. Baby A was born at 7:45 AM and had Apgars of 7 at 1 minute and 9 at 5 minutes. He weighed 7 pounds 1 ounce. Baby B was born at 7:46 AM and weighed 6 pounds 10 ounces. He had Apgars of 7 at 1 minute and 9 at 5 minutes. She has done well postoperatively and has remained afebrile with her hospitalization. Her pain is well controlled with a T AP block. She is eating and drinking and ambulating. She is bottlefeeding. She has a Rh- blood and has received RhoGAM. She is rubella immune and was group B streptococcus unknown. She was given the usual instructions with respect to limiting her activity, driving and sexual activity. She was given instructions with respect to wound care. She will continue with her vitamins and iron. She is given a prescription for Percocet 5/325 number 12 tablets. Her condition on discharge is stable and improved. Exam Data for Last 24 hours Vital signs and Labs for Last 24 Hours: Temp Pulse Resp BP Pulse Ox 97.5 F L 66 18 115/56 L 100 07/17/22 08:13 07/17/22 08:13 07/17/22 08:13 07/17/22 08:13 07/17/22 08:13 Laboratory Results - last 24 hr 07/16/22 05:40: Urine Color Yellow, Urine Appearance Clear, Urine pH 7.5, Ur Specific [place] 1.020, Urine Protein Negative, Urine Glucose (UA) Negative, Urine Ketones 1+, Urine Blood Negative, Urine Nitrate Negative, Urine Bilirubin Negative, Urine Urobilinogen 4.0, Ur Leukocyte Esterase 1+ A, Urine WBC 5-10, Urine Bacteria 1+ 07/16/22 05:40: Urine Opiates Screen Negative, Urine Methadone Screen Negative, Ur Barbituates Screen Negative, Ur Phencyclidine Scrn Negative, Ur Amphetamines Screen Negative, U Benzodiazepines Scrn Negative, Urine Cocaine Screen Negative, U Marijuana (THC) Screen Negative 07/17/22 06:42: Screen Negative, Baby's Rh Status Positive, Rhogam Infusion Rhogam release I & O for Last 24 hours: Intake & Output 07/15/22 07/16/22 07/17/22 07/18/22 11:59 11:59 11:59 11:59 Intake Total 1000 / 1000 Output Total 130 / 130 Balance 870 / 870 Weight 244 lb Microbiology Reports for the Last 24 Hours: Microbiology 07/16/22 05:40 Urine,Clean Catch Urine Culture - Final Escherichia coli Constitutional Constitutional: no acute distress *Routine HEENT Exam Head: Present normocephalic *Routine Abdominal Exam Abdominal: Present soft, normoactive bowel sounds and wound; Absent tenderness Comments: Her incision is clean and dry. Results Data Completed and Pending Labs on day of discharge: Labs from last 24 hours 07/17/22 07/16/22 07/16/22 06:42 05:40 05:40 Urine Color Yellow Urine Appearance Clear Urine pH 7.5 Ur Specific [place] 1.020 Urine Protein Negative Urine Glucose (UA) Negative Urine Ketones 1+ Urine Blood Negative Urine Nitrate Negative Urine Bilirubin Negative Urine Urobilinogen 4.0 Ur Leukocyte Esterase 1+ A Urine WBC 5-10 Urine Bacteria 1+ Urine Opiates Screen Negative Urine Methadone Screen Negative Ur Barbituates Screen Negative Ur Phencyclidine Scrn Negative Ur Amphetamines Screen Negative U Benzodiazepines Scrn Negative Urine Cocaine Screen Negative U Marijuana (THC) Screen Negative Screen Negative Baby's Rh Status Positive Rhogam Infusion Rhogam release DS: Diagnosis Discharge Diagnosis (1) delivery due to previous difficult delivery, delivered, current hospitalization: Status: Acute (2) PUPP (pruri
== END 2022-07-18 11:40 | disposition home or self-care (01) | DRG 788 ==
PROVIDERS: Admitting Provider Nurse Practitioner Obstetrics & Gynecology; PCP Internal Medicine Adolescent Medicine; Visit Provider Nurse Practitioner Obstetrics & Gynecology
PROC: 10D00Z1 Extraction of Products of Conception, Low, Open Approach (ICD-10-PCS; CPT 59514; principal; 2022-07-16 07:30)
DX: O30.043 Twin pregnancy, dichorionic/diamniotic, third trimester (principal); Z37.2 Twins, both liveborn; O32.1XX1 Maternal care for breech presentation, fetus 1; Z3A.38 38 weeks gestation of pregnancy; O34.211 Maternal care for low transverse scar from previous cesarean delivery; O24.410 Gestational diabetes mellitus in pregnancy, diet controlled; O69.81X2 Labor and delivery complicated by cord around neck, without compression, fetus 2
CPT/HCPCS: 59514; 36415; 59025; 80048; 80305; 81001; 85014; 85018; 85025; 85461; 86850; 87086; 87088; 87186; 88307; 94761; C9290; C9803; G0283; J2405; J2790; U0003; U0005

== ENCOUNTER 2022-09-30 09:03 | Emergency (ER) | payer BC, OTHER, SELFPAY ==
[2022-09-30 09:15] VITALS: BP 118/65; PULSE 107; RESP 20; TEMP 36.8; O2SAT 97; BMI 30.8
--- NOTE | 2022-09-30 09:34 | EXP.UTC ---
Discharge Plan Prescriptions Prescriptions: No Action Nexplanon 68 mg implant subdermal buspirone 7.5 mg tablet 7.5 mg PO BID Qty: 60 3RF citalopram [Celexa] 10 mg tablet 10 mg PO DAILY 30 Days Qty: 30 5RF hydroxyzine pamoate [Vistaril] 25 mg capsule 25 mg PO TIDP PRN (Reason: itching) Referrals Follow up/Referrals: Nils Reyna MD [Primary Care Provider] - See instructions Activity Restrictions/Add. Instructions Additional Instructions/Restrictions: *Monitor Temp, Over the counter Motrin or Tylenol as directed/as needed Tylenol every 4 hours and Motrin every 6 hours (as long as your family doctor has told you that you can take it) for fever or pain. and straight to ER if unable to lower temp less than 101.0 after medication given *Warm salt water gargles may help to soothe the throat *Throat Lozenges? *Warm fluids like tea with honey may help to soothe the throat? *Sleep elevated *Humidifier/Vaporizer Your throat swab was sent for culture. Those results are typically sent to your primary care. Be sure to follow up in 2-3 days with your family doctor/primary care physician if no improvement so they can review those result and treat if necessary. If you don?t have a primary care doctor, I recommend you get one but in the mean time, you will have to return to a walk in clinic Follow up IMMEDIATELY for new or worsening symptoms or no Noticeable improvement over the next 48-72 hours. 911 for difficulty breathing or swallowing You were tested for today for COVID19 your test result should be back in the next 24-48 hours, you may check your results on the [facility] my Health Portal Clinical Impressions Clinical Impression: Viral upper respiratory tract infection with cough Stand Alone Forms Stand Alone Forms: Work/School Release Instructions Patient Instructions: DI for Viral Upper Respiratory Infection -- Adult, Cough Discharge ED Provider: Jaylene Briceño [facility] HPI General Stated complaint: Chills cough headache Mode of Arrival: Ambulatory Source of Information: Patient Limitations: No Limitations Time Seen by Provider: 09/30/22 09:34 Description of Symptoms (Recalled from Triage Doc. by RN): PATIENT C/O COUGH, CHILLS AND HEADACHE SINCE THIS MORNING HEENT Symptoms (Recalled from RN notes): Yes Resp Symptoms (Recalled from RN notes): Yes Skin Symptoms (Recalled from RN notes): No MS Symptoms (Recalled from RN notes): No Functional Status (Recalled from RN notes): WNL History of Present Illness Provider Complaint: Patient states that she started having body aches, chills, and headache this morning States that she has been exposed to flu and strep and her children have been coughing and stuff too so she came in to get checked out Related Data Home Medications Medication Instructions Recorded Confirmed hydroxyzine pamoate 25 mg capsule 25 mg PO TIDP PRN itching 07/16/22 08/27/22 (Vistaril) etonogestrel 68 mg subdermal subdermal 08/07/22 08/27/22 implant (Nexplanon) Previous Rx's Medication Instructions Recorded citalopram 10 mg tablet (Celexa) 10 mg PO DAILY 30 days #30 tabs 07/30/22 buspirone 7.5 mg tablet 7.5 mg PO BID #60 tabs 08/07/22 Allergies Allergy/AdvReac Type Severity Reaction Status Date / Time shrimp Allergy Severe Difficulty Verified 08/27/22 14:10 Breathing Worker's Comp Is this a Worker's Comp case?: No [facility] Disclaimer: The information contained in this section may have been updated after the patient was seen, as this information can be updated by other users. Medical History (Updated 09/30/22 @ 09:39 by Jaylene Briceño APRN) Acute blood loss anemia Anxiety Depression depression Surgical History History of History of section History of cholecystectomy Social History (Updated 09/30/22 @ 09:30 by Lorrie Meyers RN)
[2022-09-30 09:43] VITALS: BP 118/65; PULSE 107; RESP 20; TEMP 36.8; O2SAT 97
[2022-09-30 09:43] LABS: UTC Strep Screen (Rapid) Negative (Negative)
[2022-09-30 09:44] LABS: Adenovirus,PCR Not Detected (NotDetected); Bordetella Pertussis Not Detected (NotDetected); Chlamydophila Pneumoniae, PCR Not Detected (NotDetected); Coronavirus 19, PCR Not Detected (NotDetected); Coronavirus 229E Not Detected (NotDetected); Coronavirus NL63 Not Detected (NotDetected); Coronavirus OC43 Not Detected (NotDetected); Coronovirus HKU1,PCR Not Detected (NotDetected); Human Metapneumovirus Not Detected (NotDetected); Influenza A, PCR Not Detected (NotDetected); Influenza AH1, 2009 Not Detected (NotDetected); Influenza AH1, PCR Not Detected (NotDetected); Influenza AH3,PCR Not Detected (NotDetected); Influenza B, PCR Not Detected (NotDetected); Mycoplasma Pneumoniae, PCR Not Detected (NotDetected); Parainfluenza 1, PCR Not Detected (NotDetected); Parainfluenza 2, PCR Not Detected (NotDetected); Parainfluenza 3, PCR Not Detected (NotDetected); Parainfluenza 4, PCR Not Detected (NotDetected); Respiratory Syncytial Virus Not Detected (NotDetected)
[2022-09-30 09:44] LABS: UTC Influenza A Antigen Negative (Negative); UTC Influenza B Antigen Negative (Negative)
[2022-09-30 17:01] LABS: Rhinovirus/Enterovirus Detected (NotDetected)
== END 2022-09-30 09:52 | disposition home or self-care (01) ==
PROVIDERS: Emergency Provider Nurse Practitioner; PCP Internal Medicine Adolescent Medicine
DX: J06.9 Acute upper respiratory infection, unspecified (principal)
CPT/HCPCS: 87581; 87632; 87798; 87804; 87880; 99212; C9803; G0463; U0003; U0005

== ENCOUNTER 2022-12-18 15:35 | Emergency (ER) | payer OTHER, SELFPAY ==
[2022-12-18 15:45] VITALS: BP 112/72; PULSE 84; RESP 22; TEMP 36.6; O2SAT 96; BMI 32.1
--- NOTE | 2022-12-18 15:53 | EXP.UTC ---
Discharge Plan Disposition Patient Disposition: Home, Self-Care Condition: Good Prescriptions Prescriptions: New amoxicillin [amoxicillin] 500 mg tablet 500 mg PO TID 10 Days Qty: 30 0RF methylprednisolone 4 mg Tablets,Dose Pack 4 mg PO DIRECTED Qty: 21 0RF vnjynirolfrjozw-[id number]-UQ [Bromfed DM] 2-30-10 mg/5 mL Syrup 5 ml PO Q6H PRN (Reason: Cough) Qty: 240 0RF No Action Nexplanon 68 mg implant 1 implant subdermal ONCE Referrals Follow up/Referrals: Nils Reyna MD [Primary Care Provider] - See instructions Activity Restrictions/Add. Instructions Additional Instructions/Restrictions: Drink plenty of fluids. Take tylenol or ibuprofen for pain or fever. Take the medications as directed. Follow up with your regular doctor. GO TO THE ER FOR ANY WORSENING SYMPTOMS Clinical Impressions Clinical Impression: Pharyngitis, Exposure to strep throat Stand Alone Forms Stand Alone Forms: Work/School Release Instructions Patient Instructions: Strep Throat, DI for Strep Throat Discharge ED Provider: Ac Shields [facility] General Stated complaint: sore throat Time Seen by Provider: 12/18/22 15:53 Related Data Home Medications Medication Instructions Recorded Confirmed etonogestrel 68 mg subdermal 1 implant subdermal ONCE 08/07/22 12/18/22 implant (Nexplanon) control Previous Rx's Medication Instructions Recorded amoxicillin 500 mg tablet 500 mg PO TID 10 days #30 tabs 12/18/22 ujtkfsoqeytmyzb-venvzcuyzpoebcp-BX 5 ml PO Q6H PRN Cough #240 mL 12/18/22 2 mg-30 mg-10 mg/5 mL oral syrup (Bromfed DM) methylprednisolone 4 mg tablets in 4 mg PO DIRECTED #21 tabs 12/18/22 a dose pack Allergies Allergy/AdvReac Type Severity Reaction Status Date / Time shrimp Allergy Severe Difficulty Verified 08/27/22 14:10 Breathing [facility] Disclaimer: The information contained in this section may have been updated after the patient was seen, as this information can be updated by other users. Medical History Acute blood loss anemia Anxiety Depression depression Surgical History History of History of section History of cholecystectomy Social History Smoking Status: Never smoker alcohol intake: never substance use type: denies use current occupational status: employed Travel in the last 8 weeks: None housing: house ROS Obtained: Yes All systems reviewed & no additional complaints except as documented Constitutional Constitutional: Reports chills and Reports fever(s) Eyes Eyes: Denies eye discharge ENT Ears, Nose, Mouth, and Throat: Reports as per HPI Cardiovascular Cardiovascular: Denies chest pain Respiratory Respiratory: Denies chest congestion and Reports cough Gastrointestinal Gastrointestingal: Reports nausea; Denies abdominal pain, constipation, cramping, diarrhea or vomiting Musculoskeletal Musculoskeletal: Denies arthralgias Integumentary/Breasts Skin/Breast: Denies rash Neurologic Neurologic: Denies paresthesias Physical Exam General General appearance: alert and in no apparent distress Head Head exam: atraumatic, normocephalic and normal inspection Eye Eye exam: Present normal appearance, PERRL and EOMI ENT ENT exam: Present mucous membranes moist and normal external ear exam Expanded ENT Exam TM/Canal exam: Bilateral TM: erythema and bulging Nose exam: Absent sinus tenderness Mouth exam: Present normal external inspection; Absent drooling Teeth exam: Present normal inspection Throat exam: Present tonsillar erythema, tonsillomegaly and tonsillar exudate Neck Neck exam: Present normal inspection, full ROM and trachea midline; Absent tenderness, meningismus or lymphadenopathy Chest Chest inspection: Present normal inspectio
[2022-12-18 16:15] LABS: UTC Strep Screen (Rapid) Negative (Negative)
[2022-12-18 16:16] VITALS: BP 112/72; PULSE 84; RESP 22; TEMP 36.6; O2SAT 96
== END 2022-12-18 16:54 | disposition home or self-care (01) ==
PROVIDERS: Emergency Provider Nurse Practitioner Family; PCP Internal Medicine Adolescent Medicine
DX: J02.9 Acute pharyngitis, unspecified (principal); R11.0 Nausea; R50.9 Fever, unspecified; Z20.818 Contact with and (suspected) exposure to other bacterial communicable diseases
CPT/HCPCS: 87880; 99212; 99214; G0463

== ENCOUNTER 2023-02-13 15:52 | Emergency (ER) | payer OTHER, SELFPAY ==
[2023-02-13 15:55] VITALS: BP 100/59; PULSE 78; RESP 21; TEMP 36.6; O2SAT 97; BMI 33.0
--- NOTE | 2023-02-13 16:03 | XR_ITS ---
PROCEDURE INFORMATION: Exam: XR Lumbosacral Spine Exam date and time: 02/13/2023 4:16 PM Age: 27 years old Clinical indication: Low back pain; Additional info: Fall TECHNIQUE: Imaging protocol: Radiologic exam of the lumbosacral spine. Views: 2 or 3 views. COMPARISON: CR Coccyx 02/13/2023 4:11 PM FINDINGS: Bones/joints: Approximate 3 mm anterolisthesis of L5 with respect L4. Soft tissues: Unremarkable. IMPRESSION: No evidence of acute osseous injury.
--- NOTE | 2023-02-13 16:03 | XR_ITS ---
PROCEDURE INFORMATION: Exam: XR Pelvis Exam date and time: 02/13/2023 4:18 PM Age: 27 years old Clinical indication: Pelvic pain; Additional info: Fall TECHNIQUE: Imaging protocol: Radiologic exam of the pelvis. Views: 3 or more views. COMPARISON: CT ABDOMEN PELVIS W CON 04/21/2021 10:57 PM FINDINGS: Bones/joints: Unremarkable. No acute fracture. Soft tissues: Unremarkable. IMPRESSION: No acute findings.
--- NOTE | 2023-02-13 16:03 | XR_ITS ---
PROCEDURE INFORMATION: Exam: XR Sacrum and Coccyx, 2 or More Views Exam date and time: 02/13/2023 4:11 PM Age: 27 years old Clinical indication: Pain in coccyx area; Additional info: Fall TECHNIQUE: Imaging protocol: XR of the sacrum and coccyx, 2 or more views. COMPARISON: CT ABDOMEN PELVIS W CON 04/21/2021 10:57 PM FINDINGS: Bones/joints: The subtle irregularity of the distal coccygeal segment. A fracture could not be entirely excluded. Clinically correlate. Soft tissues: Normal. IMPRESSION: Findings suspicious for possible distal coccygeal segment fracture.
--- NOTE | 2023-02-13 16:18 | EXP.UTC ---
Discharge Plan Disposition Patient Disposition: Home, Self-Care Condition: Good Prescriptions Prescriptions: New ibuprofen [IBU] 800 mg tablet 800 mg PO Q8HP PRN (Reason: Moderate Pain) Qty: 30 0RF cyclobenzaprine 10 mg Tablet 10 mg PO BID PRN (Reason: Muscle Spasm) Qty: 20 0RF Referrals Follow up/Referrals: Nils Reyna MD [Primary Care Provider] - See instructions Activity Restrictions/Add. Instructions Additional Instructions/Restrictions: Go home and rest. It would be best if you rested tomorrow too. No heavy lifting. Take the ibuprofen for pain. The muscle relaxer (cyclobenzaprine--Flexeril) will make you drowsy, so don't drive or operate heavy machinery after taking it. Follow up with your regular doctor. GO TO THE ER FOR ANY WORSENING SYMPTOMS OR CONCERN, ESPECIALLY BOWEL OR BLADDER ISSUES, SADDLE AREA NUMBNESS, FEVER, ETC Clinical Impressions Clinical Impression: Fracture of coccyx Stand Alone Forms Stand Alone Forms: Work/School Release Instructions Patient Instructions: DI for Coccyx Fracture, Coccyx Fracture Discharge ED Provider: Ac Shields [facility] General Stated complaint: AO 02/13 fall lower back/bottom pain Mode of Arrival: Ambulatory Source of Information: Patient Limitations: No Limitations Time Seen by Provider: 02/13/23 16:18 Description of Symptoms (Recalled from Triage Doc. by RN): PATIENT REPORTS FALLING AT HOME THIS MORNING AND LANDING ON BUTTOCKS. C/O INCREASED PAIN TO TOP OF BUTTOCK HEENT Symptoms (Recalled from RN notes): No Resp Symptoms (Recalled from RN notes): No Skin Symptoms (Recalled from RN notes): No MS Symptoms (Recalled from RN notes): Yes Functional Status (Recalled from RN notes): WNL History of Present Illness Provider Complaint: She states that she slipped on slick floors at her home and came down on her bottom. She has had low back pain and coccyx pain since then. She denies other injury. She denies any leg weakness or numbness. Related Data Previous Rx's Medication Instructions Recorded cyclobenzaprine 10 mg tablet 10 mg PO BID PRN Muscle Spasm #20 02/13/23 tabs ibuprofen 800 mg tablet (IBU) 800 mg PO Q8HP PRN Moderate Pain 02/13/23 #30 tabs Allergies Allergy/AdvReac Type Severity Reaction Status Date / Time shrimp Allergy Severe Difficulty Verified 08/27/22 14:10 Breathing Worker's Comp Is this a Worker's Comp case?: No [facility] Disclaimer: The information contained in this section may have been updated after the patient was seen, as this information can be updated by other users. Medical History Acute blood loss anemia Anxiety Depression depression Surgical History History of History of section History of cholecystectomy Social History Smoking Status: Never smoker alcohol intake: never substance use type: denies use current occupational status: employed Travel in the last 8 weeks: None housing: house ROS Obtained: Yes All systems reviewed & no additional complaints except as documented Constitutional Constitutional: Denies chills and Denies fever(s) Eyes Eyes: Denies eye discharge ENT Ears, Nose, Mouth, and Throat: Denies dizziness, Denies otalgia and Denies sore throat Cardiovascular Cardiovascular: Denies chest pain Respiratory Respiratory: Denies shortness of breath, Denies chest congestion, Denies cough, Denies stridor and Denies wheezing Gastrointestinal Gastrointestingal: Denies nausea or vomiting Musculoskeletal Musculoskeletal: Reports as per HPI Integumentary/Breasts Skin/Breast: Denies rash Neurologic Neurologic: Denies dizziness and Denies paresthesias Allergic/Immunologic Allergic/Immunologic: Denies wheezing Physical Exam General General appearance: alert and in no apparent
[2023-02-13 17:22] VITALS: BP 100/59; PULSE 78; RESP 21; TEMP 36.6; O2SAT 97
== END 2023-02-13 17:31 | disposition home or self-care (01) ==
PROVIDERS: Emergency Provider Nurse Practitioner Family; PCP Internal Medicine Adolescent Medicine
DX: S32.2XXA Fracture of coccyx, initial encounter for closed fracture (principal); W01.0XXA Fall on same level from slipping, tripping and stumbling without subsequent striking against object, initial encounter
CPT/HCPCS: 72100; 72190; 72220; 99212; 99214; G0463

== ENCOUNTER 2023-03-10 11:11 | Outpatient (CLI) | payer OTHER, SELFPAY ==
[2023-03-10 11:20] VITALS: BMI 30.4
--- NOTE | 2023-03-10 11:21 | PC.NURSE ---
pt encounter for TB skin test. VSS
--- NOTE | 2023-03-10 11:27 | PC.NURSE ---
bp 117/72 hr-77 r-16 o2-100 room air.
== END 2023-03-10 11:43 | disposition home or self-care (01) ==
PROVIDERS: PCP Pediatrics; Visit Provider Nurse Practitioner Family
DX: Z11.1 Encounter for screening for respiratory tuberculosis (principal)
CPT/HCPCS: 86580

== ENCOUNTER 2024-05-11 16:53 | Emergency (ER) | payer OTHER, SELFPAY ==
[2024-05-11 17:40] VITALS: BP 107/66; PULSE 78; RESP 18; TEMP 37.1; O2SAT 100; BMI 29.9
--- NOTE | 2024-05-11 17:49 | ED_ITS ---
Discharge Plan Disposition Patient Disposition: Home, Self-Care Condition: Good Prescriptions Prescriptions: New azithromycin [Zithromax] 250 mg tablet 250 mg PO UD DOSE PK Qty: 6 0RF Rx Instructions: Take two (2) tablets today, then one (1) tablet days #2 thru #5 [id number]-adpoahagz-ZQ [Bromfed DM] 2-30-10 mg/5 mL Syrup 5 ml PO Q6H PRN (Reason: Cough) Qty: 240 0RF No Action phenazopyridine [Pyridium] 200 mg tablet 200 mg PO BID Qty: 6 0RF nitrofurantoin monohyd/m-cryst [Macrobid] 100 mg capsule 100 mg PO Q12H 5 Days Qty: 10 0RF Rx Instructions: must administer with a meal/food ibuprofen [IBU] 800 mg tablet 800 mg PO Q8HP PRN (Reason: Moderate Pain) Qty: 30 0RF cyclobenzaprine 10 mg Tablet 10 mg PO BID PRN (Reason: Muscle Spasm) Qty: 20 0RF Referrals Follow up/Referrals: Lovely Way DO [Primary Care Provider] - See instructions Activity Restrictions/Add. Instructions Additional Instructions/Restrictions: Drink plenty of fluids. Take tylenol or ibuprofen for pain or fever. Take the medications as directed. Follow up with your regular doctor. GO TO THE ER FOR ANY WORSENING SYMPTOMS Clinical Impressions Clinical Impression: Pharyngitis, Acute viral syndrome Stand Alone Forms Stand Alone Forms: Work/School Release Instructions Patient Instructions: DI for Pharyngitis/Tonsillopharyngitis -- Child, DI for Viral Syndrome Print Language Print Language: Citizen Of [place] Discharge ED Provider: Ac Shields [facility] General Stated complaint: congestion,sore throat Time Seen by Provider: 05/11/24 17:49 History of Present Illness Provider Complaint: She states that for the past 3 days she has had chills, malaise, runny nose and sore throat. Related Data Previous Rx's ?Medication ?Instructions ?Recorded cyclobenzaprine 10 mg tablet 10 mg PO BID PRN Muscle Spasm #20 02/13/23 tabs ibuprofen 800 mg tablet (IBU) 800 mg PO Q8HP PRN Moderate Pain 02/13/23 #30 tabs nitrofurantoin 100 mg PO Q12H 5 days #10 caps 04/12/24 monohydrate/macrocrystals 100 mg capsule (Macrobid) phenazopyridine 200 mg tablet 200 mg PO BID 6 doses #6 tabs 04/12/24 (Pyridium) azithromycin 250 mg tablet 250 mg PO UD DOSE PK #6 tabs 05/11/24 (Zithromax) etoaupltzczbsnc-dfygupieuijeyvs-KK 5 ml PO Q6H PRN Cough #240 mL 05/11/24 2 mg-30 mg-10 mg/5 mL oral syrup (Bromfed DM) Allergies Allergy/AdvReac Type Severity Reaction Status Date / Time shrimp Allergy Severe Difficulty Verified 03/02/24 11:18 Breathing [facility] Disclaimer: The information contained in this section may have been updated after the patient was seen, as this information can be updated by other users. Medical History Acute blood loss anemia Anxiety Depression depression Surgical History History of History of section History of cholecystectomy Social History Smoking Status: Never smoker alcohol intake: never substance use type: denies use current occupational status: employed Travel in the last 8 weeks: None housing: house ROS Obtained: Yes All systems reviewed & no additional complaints except as documented Constitutional Constitutional: Reports chills and Reports fever(s) Eyes Eyes: Denies eye discharge ENT Ears, Nose, Mouth, and Throat: Reports as per HPI Cardiovascular Cardiovascular: Denies chest pain Respiratory Respiratory: Denies chest congestion and Reports cough Gastrointestinal Gastrointestingal: Reports nausea; Denies abdominal pain, constipation, cramping, diarrhea or vomiting Musculoskeletal Musculoskeletal: Denies arthralgias Integumentary/Breasts Skin/Breast: Denies rash Neurologic Neurologic: Denies paresthesias Physical Exam General General appearance: alert and in no apparent distress Head Head exam: atraumatic, normocephalic and normal inspection Eye Eye exam: Present normal appearance, PERRL and EOMI ENT ENT exam: Present mucous membranes moist and normal external ear exam Expanded ENT Exam TM/Canal exam: Bilateral TM: erythema and bulging Nose exam: Absent sinus tenderness Mouth exam: Present normal external inspection; Absent drooling Teeth exam: Present normal inspection Throat exam: Present tonsillar erythema, tonsillomegaly and tonsillar exudate Neck Neck exam: Present normal inspection, full ROM and trachea midline; Absent tenderness, meningismus or lymphadenopathy Chest Chest inspection: Present normal inspection and symmetric chest wall rise; Absent tenderness Respiratory Respiratory exam: Present normal lung sounds bilaterally; Absent respiratory distress, wheezes, stridor or accessory muscle use Cardiovascular Cardiovascular exam: Present regular rate and normal rhythm; Absent systolic murmur or diastolic murmur Abdominal Exam Abdominal exam: Present soft and normal bowel sounds; Absent distention, tenderness, guarding, rebound or rigidity Extremities Exam Extremities exam: Present normal inspection and normal capillary refill; Absent calf tenderness Back Exam Back exam: Present normal inspection and full ROM; Absent tenderness, CVA tenderness (R) or CVA tenderness (L) Neurological Exam Neurological exam: Present alert, oriented X3 and CN II-XII intact Psychiatric Psychiatric exam: Present normal affect and normal mood Skin Skin exam: Present warm, dry, intact and normal color Medical Decision Making Medical Records Medical records reviewed: No I reviewed the patient's medical records. Aniket Inquiry Pt receiving controlled substance: No Lab Data Lab results reviewed: Yes I reviewed the patient's lab results.
[2024-05-11 18:23] VITALS: BP 107/66; PULSE 78; RESP 18; TEMP 37.1; O2SAT 100
[2024-05-11 18:24] LABS: UTC Strep Screen (Rapid) Negative (Negative)
[2024-05-11 18:33] LABS: Influenza A, PCR Not Detected (NotDetected); Influenza B, PCR Not Detected (NotDetected)
[2024-05-11 19:11] LABS: Coronavirus 19, PCR Detected (NotDetected)
== END 2024-05-11 18:27 | disposition home or self-care (01) ==
PROVIDERS: Emergency Provider Nurse Practitioner Family; PCP Pediatrics
DX: U07.1 COVID-19 (principal); J02.9 Acute pharyngitis, unspecified; R09.81 Nasal congestion
CPT/HCPCS: 87636; 87880; 99212; 99214; G0463

== ENCOUNTER 2024-07-26 12:42 | Outpatient (CLI) | payer OTHER, SELFPAY ==
[2024-07-26 13:33] LABS: Chol/HDL Ratio 6.9 (1-3.5); Cholesterol 186 mg/dl (140-200); HDL Cholesterol 27 mg/dl (40-60); Triglycerides 360 mg/dl (30-150); VLDL Cholesterol 72 mg/dL (0-40)
[2024-07-26 13:44] LABS: Direct LDL Cholesterol 94.39 mg/dL (100-129)
[2024-07-26 13:50] LABS: 25-OH Vitamin D, Total 27.9 ng/mL (30-100)
== END 2024-07-26 23:59 | disposition home or self-care (01) ==
LOC: LAB 12:44
PROVIDERS: PCP Nurse Practitioner Family; Visit Provider Nurse Practitioner Family
DX: E55.9 Vitamin D deficiency, unspecified (principal); E78.00 Pure hypercholesterolemia, unspecified
CPT/HCPCS: 36415; 80061; 82306

== ENCOUNTER 2024-08-02 12:32 | Outpatient (CLI) | payer OTHER, SELFPAY ==
[2024-08-02 13:39] LABS: Free T4 (Free Thyroxine) 1.07 ng/dl (0.78-2.19)
[2024-08-02 13:53] LABS: Thyroid Stimulating Hormone 2.42 uIU/mL (0.465-4.68)
== END 2024-08-02 23:59 | disposition home or self-care (01) ==
LOC: LAB 12:34
PROVIDERS: PCP Nurse Practitioner Family; Visit Provider Nurse Practitioner Family
DX: E66.3 Overweight (principal); Z68.30 Body mass index [BMI] 30.0-30.9, adult
CPT/HCPCS: 36415; 84439; 84443

== ENCOUNTER 2025-03-04 17:35 | Outpatient (CLI) | payer OTHER, SELFPAY | END 2025-03-04 23:59 | disposition home or self-care (01) | LOC: LAB.DROPOF 03-07 10:40 | PROVIDERS: Visit Provider Nurse Practitioner Family | DX: N39.0 Urinary tract infection, site not specified (principal) | CPT/HCPCS: 87077; 87086; 87088 ==

== ENCOUNTER 2025-03-29 08:07 | Outpatient (CLI) | payer OTHER, SELFPAY ==
--- OUTSIDE RECORDS SUMMARY | 2025-03-29 08:11 | XMS_ITS | Continuity of Care Document ---
Author Organization [facility] Address [address] [place] [address] Assessment Encounter Date Assessment Date Assessment LastModified by Organization Details LastModified Time 03/28/2025 03/28/2025 Risks, benefits, and alternatives of the medication have been discussed with the patient. She would like to move forward with a prescription of adipex. efryman Not available 03/28/2025 17:58:13 Plan of Treatment Reminders Order Date Submit Date Provider Last Modified By Organization Details Last Modified Time Details Appointments Follow Up 20 2024 06:00P Jalil Webb APRN Not available Not available Not available Lab None recorded. Referral None recorded. Procedures None recorded. Surgeries None recorded. Imaging None recorded. Medication Orders phentermi ne 37.5 mg tablet 2024 025 [facility], [address], [address], 03/28/2025 17:48:28 Patient TargetsNo targets recorded. Patient Instructions Encounter Date Encounter Id Patient Instructions Last Modified By Organization Details Last Modified Time 03/28/2025 [id number] learning about healthy weight efryman Not available 03/28/2025 17:48:21 body mass index: care instructions efryman Not available 03/28/2025 17:48:21 Treament Plan: Patient will start medication as directed. Patient will continue exercise, watch calorie intake, and follow up for weight check in 1 month. [email or web address] Not available 03/28/2025 17:31:55 Reason for Referral None Reported. Problems Name Problem SNOMED Code Status Onset Date Resolution Date Notes Provider Name and Address Organization Details Recorded Time Gestatio nal diabetes mellitus 18584320 Completed 03/23/2023 Removal Reason: had with her pregnanc ies Renae Toro null, [place] - [facility] 3 15:47:30 Prediabe michelle 386051784 Active Renae Toro null, [place] - [facility] 3 15:48:02 Vitamin D deficien cy 09846686 Active 2022 Chacho Webb, [employer] OFFICER [address], [place], [address] , [place] - [facility] 3 08:33:30 Overweig ht 140005262 Active 2022 Vickie Stears null, [place] - [facility] 3 14:35:25 Notes:gestational diabetes Problem Notes None recorded. Procedures Surgical History Date Name Laterality Status Provider Name and Address Organization Details Recorded Time 07/16/20 Caesarean Section completed Renae Toro [place] - [facility] 03/23/2023 15:45:51 Cholecystectomy, laparoscopic completed Renae Toro [place] - [facility] 03/23/2023 15:50:19 Imaging Results None recorded. Procedure Notes None recorded. Medical Equipment None Reported. Allergies No known drug allergies Medications Name Sig Start Date Stop Date Status Note LastModified by Organization Details LastModified Time amoxicillin 500 mg capsule TAKE 1 CAPSULE BY MOUTH THREE TIMES DAILY 03/23 completed Not Available Not Available Not Available azithromyci n 250 mg tablet 06/07 completed Not Available Not Available Not Available ibuprofen 800 mg tablet TAKE ONE TABLET BY MOUTH EVERY 8 HOURS NEEDED FOR PAIN --TAKE WITH FOOD-- active Not Available Not Available No t Available fluconazole 150 mg tablet TAKE ONE TABLET BY MOUTH ONE DOSE 02/07 completed Not Available Not Available Not Available citalopram 10 mg tablet TAKE ONE TABLET BY MOUTH DAILY 03/23 completed Not Available Not Available Not Available hydrocodone 5 mg-acetamin ophen 325 mg tablet TAKE 1 TABLET BY MOUTH EVERY 4 TO 6 HOURS NEEDED FOR PAIN 03/23 completed Not Available Not Available Not Available phenazopyri dine 200 mg tablet TAKE ONE TABLET BY MOUTH TWICE DAILY FOR 3 DAYS 04/26 completed Not Available Not Available Not Available terconazole 0.8 % vaginal cream INSERT 1 APPLICATO RFUL VAGINALLY AT BEDTIME FOR 3 DAYS 03/23 completed Not Available Not Available Not Available phentermine 37.5 mg tablet TAKE 1 TABLET BY MOUTH ONCE DAILY FOR WEIGHT LOSS 2024 active Not Available Not Available Not Avai lable ciprofloxac in 500 mg tablet TAKE 1 TABLET BY MOUTH TWICE DAILY FOR 3 DAYS 03/28 completed Not Available Not Available Not Available oxycodone-a cetaminophe n 5 mg-325 mg tablet TAKE ONE TABLET BY MOUTH EVERY 4 TO 6 HOURS NEEDED FOR SEVERE pain MAY CAUSE DROWSINES S 03/23 completed Not Available Not Available Not Available propranolol 10 mg tablet TAKE 1 TABLET BY MOUTH TWICE DAILY 03/23 completed Not Available Not Available Not Available amoxicillin 875 mg tablet TAKE 1 TABLET BY MOUTH TWICE DAILY FOR 10 DAYS 02/07 completed Not Available Not Available Not Available phenazopyri dine 100 mg tablet TAKE 1 TABLET BY MOUTH THREE TIMES DAILY NEEDED FOR PAIN FOR 6 DOSES 03/28 completed Not Available Not Available Not Available hydrocodone 7.5 mg-acetamin ophen 325 mg tablet TAKE 1 TABLET BY MOUTH EVERY 4 TO 6 HOURS NEEDED FOR PAIN 03/23 completed Not Available Not Available Not Available buspirone 7.5 mg tablet TAKE ONE TABLET BY MOUTH TWICE DAILY 03/23 completed Not Available Not Available Not Available ergocalcife rol (vitamin D2) 1,250 mcg (50,000 unit) capsule TAKE 1 CAPSULE BY MOUTH ONCE A WEEK 09/12 completed Not Available Not Available Not Available methylpredn isolone 4 mg tablets in a dose pack TAKE BY MOUTH DIRECTED ON INSIDE OF PACKAGE 03/23 completed Not Available Not Available Not Available bromphenira mine-pseudo ephedrine-D M 2 mg-30 mg-10 mg/5 mL oral syrup 06/07 completed Not Available Not Available Not Available hydroxyzine pamoate 25 mg capsule TAKE 1 CAPSULE BY MOUTH THREE TIMES DAILY NEEDED FOR ITCHING 03/23 completed Not Available Not Available Not Available ciprofloxac in 0.3 %-dexametha sone 0.1 % ear drops,suspe nsion INSTILL 4 DROPS INTO THE LEFT EAR DIRECTED TWICE DAILY FOR 7 DAYS 02/07 completed Not Available Not Available Not Available nitrofurant oin monohydrate /macrocryst als 100 mg capsule TAKE ONE CAPSULE BY MOUTH EVERY TWELVE HOURS FOR 5 DAYS -- FINISH ALL MEDICINE -- --TAKE WITH A MEAL/FOOD -- 04/26 completed Not Available Not Available Not Available FeroSul 325 mg (65 mg iron) tablet 03/23 completed Not Available Not Available Not Available Lo Loestrin Fe 1 mg-10 mcg (24)/10 mcg (2) tablet TAKE ONE TABLET BY MOUTH EVERY DAY active Not Available Not Available No t Available PreviDent 5000 Booster Plus 1.1 % dental paste BRUSH ON AT BEDTIME AFTER REGULAR BRUSHING DO NOT EAT OR DRINK ANYTHING AFTER APPLICATI ON UNTIL THE NEXT MORNING 03/23 completed Not Available Not Available Not Available Saxenda 3 mg/0.5 mL (18 mg/3 mL) subcutaneou s pen injector Inject 0.6 mg every day by subcutane ous route. 04/27 completed Not Available Not Available Not Available Ozempic 0.25 mg or 0.5 mg (2 mg/3 mL) subcutaneou s pen injector Inject 0.25 mg every day by subcutane ous route. 05/25 completed Not Available Not Available Not Available Zepbound 5 mg/0.5 mL subcutaneou s pen injector Inject 5 mg every week by subcutane ous route. 08/23 completed Not Available Not Available Not Available Zepbound 2.5 mg/0.5 mL subcutaneou s pen injector INJECT 1 SYRINGE SUBCUTANE OUSLY ONCE A WEEK 08/23 completed Not Available Not Available Not Available Vitals Date Recorded Body height Body mass index (BMI) Body weight Body temperature Heart rate Oxygen saturation Oxygen saturation in Arterial blood by Pulse oximetry Respiratory rate Systolic blood pressure Diastolic blood pressure Provider Name and Address Organization Details Last Updated DateTime 5 172.72 cm 31.8 kg/m2 10626.8 1 g 97.2 [degF] 100 /min 96 % 96 % 18 /min 114 mm[Hg] 64 mm[Hg] Renae Toro [place] - [facility] 17:38:38 Social History Question Answer Notes LastModified by Organizat ion Details LastModified Time Tobacco Smoking Status Current Some Day Smoker Renae Toro null, [place] - [facility] 03/23/2023 15:45:50 Do You Have An Advance Directive? No Information not available 03/23/2023 Are You Blind Or Do You Have Difficulty Seeing? No Information not available 03/23/2023 Is Blood Transfusion Acceptable In An Emergency? Yes Information not available 03/23/2023 What Is Your Level Of Caffeine Consumption? Occasional Information not available 03/23/2023 How Much Tobacco Do You Chew? None Information not available 03/23/2023 In The 14 Days Before Symptom Onset, Have You Had Close Contact With A Laboratory-confir med COVID-19 While That Case Was Ill? No Information not available 03/23/2023 In The 14 Days Before Symptom Onset, Have You Had Close Contact With A Person Who Is Under Investigation For COVID-19 While That Person Was Ill? No Information not available 03/23/2023 Have You Been To An Area Known To Be High Risk For COVID-19? No Information not available 03/23/2023 Are You Deaf Or Do You Have Serious Difficulty Hearing? No Information not available 03/23/2023 What Type Of Diet Are You Following? CARBOHYDRATE Information not available 03/23/2023 Which Illicit Or Recreational Drugs Have You Used? None Information not available 03/23/2023 Have You Processed Blood Or Body Fluids From An Ebola Virus Disease Patient Without Appropriate PPE? No Information not available 03/23/2023 Do You Reside In Or Have You Traveled To An Area Where Ebola Virus Transmission Is Active? No Information not available 03/23/2023 What Is The Highest Grade Or Level Of School You Have Completed Or The Highest Degree You Have Received? [id number] Information not available 03/23/2023 Have There Been Any Changes To Your Family Or Social Situation? No Information no t available 03/23/2023 Have You Recently Or Are You Planning To Travel To An Area With Zika Virus? No Information not available 03/23/2023 How Many Years Have You Used Illicit Or Recreational Drugs? 0 Information not available 03/23/2023 Do You Have A Medical Power Of Director Traffic And Planning? No Information not available 03/23/2023 What Was The Date Of Your Most Recent Tobacco Screening? 11/25/2024 Information not available 11/25/2024 How Many Children Do You Have? 5 Information not available 03/23/2023 Do You Use Protection Against STDs? Always Information not available 03/23/2023 What Is Your Relationship Status? Information not available 03/23/2023 Do You Use Your Seat Belt Or Car Seat Routinely? Yes Information not available 03/23/2023 Are You Sexually Active? Yes Information not available 03/23/2023 Do You Have Smoke And Carbon Monoxide Detectors In Your Home? Yes Information not available 03/23/2023 At What Age Did You Start Smoking Tobacco? 25 Information not available 03/23/2023 Are You Passively Exposed To Smoke? No Information no t available 03/23/2023 How Much Tobacco Do You Smoke? 1 PPW Information not available 03/23/2023 Do You Use Sunscreen Routinely? Yes Information not available 03/23/2023 Has Tobacco Cessation Counseling Been Provided? Yes Information not available 03/23/2023 On What Date Was Tobacco Cessation Counseling Provided? 09/12/2024 Information not available 09/12/2024 How Many Years Have You Smoked Tobacco? 3 Information not available 03/23/2023 Do You Have Difficulty Walking Or Climbing Stairs? No Information not available 03/23/2023 Which Type Of Protection Is Used? Abstinence Information not available 03/23/2023 Sex: Female Functional Status Question Answer Note LastModified by Organizat ion Details LastModified Time Do you use any illicit or recreational drugs? No Information not available 03/23/2023 Do you or have you ever used any other forms of tobacco or nicotine? No Information not available 03/23/2023 What is your level of alcohol consumption? None Information not available 03/23/2023 Do you or have you ever used smokeless tobacco? Never used smokeless tobacco Information not available 03/23/2023 Are you currently employed? Yes Information not available 03/23/2023 Do you have difficulty doing errands alone? No Information not available 03/23/2023 Are you able to care for yourself? 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 No Information not available 03/23/2023 Do you or have you ever used e-cigarettes or vape? Never used electronic cigarettes Information not available 03/23/2023 What is your exercise level? Occasional Information not available 03/23/2023 Mental Status Question Answer Note LastModified by Organizat ion Details LastModified Time Do you feel stressed (tense, restless, nervous, or anxious, or unable to sleep at night)? [id number] Information not available 03/23/2023 Do you have difficulty concentrating, remembering or making decisions? No Information no t available 03/23/2023 Family History Relationship Description Onset Age of this Age Resolved Age Notes LastModified by Organization Details LastModified Time Mother Obesity [email or web address] Not available 03/23/2023 15:45:22 Maternal Grandmother Malignant tumor of breast cbuckler Not available 2022 15:45:22 Father Hypertensive disorder cbuckler Not available 2022 15:45:22 Father Obesity cbuckler Not available 03/23/2023 15:45:22 Father Diabetes mellitus cbuckler Not available 2022 15:45:22 Medical History Condition Response Diabetes Y Obesity Y Depression Y Gynecological History Statement/Question Response Abnormal Pap N Flow Moderate Date of LMP 10/30/2024 Post Menopausal Bleeding N STIs/STDs N HPV Vaccine Y Duration of Flow (days) 3 Current Control Method Other Age at Menarche 15 Age at First Child 20 Frequency of Cycle (Q days) 2 Sexually Active? Y Menses Monthly Y Date of Last Pap Smear Sexual Problems? N LMP Approximate Hormone Replacement Therapy N Obstetrics History GPAL:G 5 P 5 0 0 5 Type Value Multiple Births 1 Full Term 5 Induced 0 Spontaneous 0 Premature 0 Living 5 Ectopics 0 Total 5 Immunizations Vaccine Type Date Status Note Provider Nam e and Address Organization Details Recorded Time pneumococcal polysaccharide PPV23 6 completed Renae Toro null, [place] - [facility] 03/26/2023 11:28:14 Tdap 8 completed Renae Muna null, [place] - [facility] 03/26/2023 11:28:14 Tdap 0 completed Renae M[place], [place] - [facility] 03/26/2023 11:28:14 Hep B, adolescent or pediatric 8 completed Renae [place] [facility] 03/26/2023 11:28:14 Hep B, adolescent or pediatric 7 completed Renae [place] [facility] 03/26/2023 11:28:15 Influenza, split virus, quadrivalent, PF 8 completed Renae M[place] - [facility] 03/26/2023 11:28:15 Influenza, split virus, quadrivalent, PF 7 completed Renae M[place] - [facility] 03/26/2023 11:28:15 Past Encounters Encounter ID Performer Location Encounter Start Date Encounter Closed Date Diagnosis/Indication Diagnosis SNOMED-CT Code Diagnosis ICD10 Code Diagnosis Note [id number] Chacho Webb APRN [address] [address] 03/28/2025 17:25:55 03/28/2025 18:02:06 Overweight 092110523 E66.3 Discussed healthy eating and portioning foods with diet and exercise Obesity 765024867 E66.9 continue low fat/carb/c alorie diet and exerciseka sper # [id number] Body mass index 25-29 - overweight 839943246 Z68.29 31.8contin ue diet and exercise planPt compliant with plan of caremedica tion compliance discussedC ontrol substance agreement on file,adipe x agreement on filediscus sed diet and exercise Body mass index 30+ - obesity 972663455 Z68.31 31.8contin ue diet and exercise planPt compliant with plan of caremedica tion compliance discussedC ontrol substance agreement on file,adipe x agreement on filediscus sed diet and exercise Health Concerns Section Related Observation LastModified by Organization Detai ls LastModified Time None Recorded Concern Status LastModified by Organization Details LastModified Time None Recorded Payers Encounter Date Sequence Insurance Name Policy Number Policy [place] Covered Member ID Bingham Member ID Guarantor Name 03/28/2025 1 [facility] (MEDICAID HMO) Jesus Abdullahi [id number] Jesus Abdullahi Feeback Notes Date Note Type Note Provider Name and Address Organization Details Recorded Time 03/28/2025 text/html 29 yr old female presents for a weight loss follow up. down 8 lbs pt states doing well on meds with diet and exercise Chacho Webb, [employer]OTE[employer] OFFICER [address], [place], [address], [place] - [facility] 03/28/2025 17:59:37 OBGyn Episode No OBEpisode recorded.
--- OUTSIDE RECORDS SUMMARY | 2025-03-29 08:12 | XMS_ITS | Clinical Summary ---
Author Organization [facility] Address [address] [place] [address] Care Team Providers Care Negotiator Sales Name Role Phone Unavailable Primary Care Provider Unavailabl e Social History Tobacco Use Types Packs/Day Years Used Date Smoking Tobacco: Never Assessed Comments Unknown Sex and Gender Information Value Date Recorded Sex Assigned at Female 09/06/2022 7:16 PM EST Legal Sex Female 11:23 AM EST Gender Identity Female 09/06/2022 7:16 PM EST Sexual Orientation Straight 09/06/2022 7: 16 PM EST Plan of Treatment Health Maintenance Due Date Last Done Comments [facility]-Depression Screening 1997 [facility]-/Child/Adol SDOH Screenings 1997 [facility]-Varicella Vaccines (1 of 2 - 13+ 2-dose series) 2010 HPV Vaccines (1 - 3-dose series) 2012 [facility]- SDOH Screenings 2015 [facility]-Adult SDOH Screenings 2015 [facility]-DTaP,Tdap,and Td Vaccine s (1 - Tdap) 2016 [facility]-Hepatitis B Vaccines (1 of 3 - 19+ 3-dose series) 2016 [facility]-Pap Smear 2018 [id number] Vaccine (1 - 20 24-25 season) 2024 [facility]-Influenza Vaccine (Seaso n Ended) 2025 [facility]-Zoster Vaccines (1 of 2) 2047 [facility]-HIB Vaccines Aged Out No longer e ligible based on patient's age to complete this topic [facility]-Hepatitis A Vaccines Aged Out No longer eligible based on patient's age to complete this topic [facility]-IPV Vaccines Aged Out No longer e ligible based on patient's age to complete this topic [facility]-Pneumococcal Vaccine: Pediatrics (0 to 5 Years) and At-Risk Patients (6 to 49 Years) Aged Out No long er eligible based on patient's age to complete this topic [facility]-Rotavirus Vaccines Aged Out No lo nger eligible based on patient's age to complete this topic
--- OUTSIDE RECORDS SUMMARY | 2025-03-29 08:12 | XMS_ITS | Continuity of Care Document ---
Author Organization [facility] Address [address] [place] [address] Assessment No assessment recorded. Plan of Treatment Reminders Order Date Submit Date Provider Last Modified By Organization Details Last Modified Time Details Appointments Follow Up 2024 06:00P M Chacho Webb APRN Not available Not available Not available Lab None recorded . Referral None recorded . Procedures None recorded . Surgeries None recorded . Imaging None recorded . Medication Orders None recorded . Patient TargetsNo targets recorded. Patient Instructions Encounter Date Encounter Id Patient Instructions Last Modified By Organization Details Last Modified Time 02/07/2025 [id number] Treament Plan: Patient will start medication as directed. Patient will continue exercise, watch calorie intake, and follow up for weight check in 1 month. [email or web address] Not available 02/07/2025 13:05:00 Reason for Referral None Reported. Problems Name Problem SNOMED Code Status Onset Date Resolution Date Notes Provider Name and Address Organization Details Recorded Time Gestatio nal diabetes mellitus 79534724 Completed 03/23/2023 Removal Reason: had with her pregnanc ies Renae Toro null, [place] - [facility] 3 15:47:30 Prediabe michelle 272965334 Active Renae Toro null, [place] - [facility] 3 15:48:02 Vitamin D deficien cy 85124216 Active 2022 Chacho Webb APRN [address], [place], [address] , [place] - [facility] 3 08:33:30 Overweig ht 160113223 Active 2022 Vickie Camejo null, [place] - [facility] 3 14:35:25 Notes:gestational diabetes Problem Notes None recorded. Procedures Surgical History Date Name Laterality Status Provider Name and Address Organization Details Recorded Time 07/16/20 22 Caesarean Section completed Renae WHITT - [facility] 03/23/2023 15:45:51 Cholecystectomy, laparoscopic completed Renae WHITT - [facility] 03/23/2023 15:50:19 Imaging Results None [...] height Body mass index (BMI) Body weight Heart rate Oxygen saturation Oxygen saturation in Arterial blood by Pulse oximetry Respiratory rate Systolic blood pressure Diastolic blood pressure Provider Name and Address Organization Details Last Updated DateTime 5 172.72 cm 32.1 kg/m2 69926.9 9 g 77 /min 98 % 98 % 18 /min 108 mm[Hg] 62 mm[Hg] Renae Toro [place] - [facility] 5 13:21:46 Social History Question Answer Notes LastModified by Organizat ion Details LastModified Time Tobacco Smoking Status Current Some Day Smoker Renae Toro [facility], [place] - [facility] 03/23/2023 15:45:50 Do You [...] You Had Close Contact With A Laboratory-confir [place]-19 While That Case Was Ill? No Information [...] Or The Highest Degree You Have Received? [id number] Information not available 03/23/2023 Have There Been Any Changes To Your Family Or Social Situation? No Information no t available 03/23/2023 Have You Recently Or Are You Planning To Travel To An Area With Zika Virus? No Information not available 03/23/2023 How Many Years Have You Used Illicit Or Recreational Drugs? 0 Information not available 03/23/2023 Do You Have A Medical Power Of Funeral Arranger? 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 [id number] Information not available 03/23/2023 Do you have [...] [facility] 03/26/2023 11:28:14 Tdap 8 completed Renae [place] - [facility] 03/26/2023 11:28:14 Tdap 0 completed Renae [place] [facility] 03/26/2023 11:28:14 Hep B, adolescent or pediatric 8 completed Renae [place] [facility] 03/26/2023 11:28:14 Hep B, adolescent or pediatric 7 completed Renae [place] [facility] 03/26/2023 11:28:15 Influenza, split virus, quadrivalent, PF 8 completed Renae [place] [facility] 03/26/2023 11:28:15 Influenza, split virus, quadrivalent, PF 7 completed Renae robert, JOSE EDUARDO - [facility] 03/26/2023 11:28:15 Past Encounters Encounter ID Performer Location Encounter Start Date Encounter Closed Date Diagnosis/Indication Diagnosis SNOMED-CT Code Diagnosis ICD10 Code Diagnosis Note [id number] Chacho Webb APRN [address] [address] 02/07/2025 12:51:52 02/07/2025 14:00:31 Body mass index 25-29 - overweight 327670559 Z68.29 31.3contin ue diet and exercise planPt compliant with plan of caremedica tion compliance discussedC ontrol substance agreement on file,adipe x agreement on filediscus sed diet and exercisere turn after 02/24 since wt gain. Health Concerns Section Related Observation LastModified by Organization Detai ls LastModified Time None Recorded Concern Status LastModified by Organization Details LastModified Time None Recorded Payers Encounter Date Sequence Insurance Name Policy Number Policy [place] Covered Member ID [place] Member ID Guarantor Name 02/07/2025 1 [employer] [facility] (MEDICAID HMO) Normandee [employer] [id number] Normandee Kaylen Feeback Notes Date Note Type Note Provider Name and Address Organization Details Recorded Time 02/07/2025 text/html 29 yr old female presents for a weight loss follow up. missed appointment 2 weeks ago. up 6 lbs Chacho Webb APRN [address], [place], [address], [place] - [facility] 02/07/2025 13:58:14 OBGyn Episode No OBEpisode recorded.
--- OUTSIDE RECORDS SUMMARY | 2025-03-29 08:12 | XMS_ITS | Data Portability ---
Author Organization Count includes the [facility] Address [address] [place] [address] Assessment Encounter Date Assessment Date Assessment LastModified by Organization Details LastModified Time 03/28/2025 03/28/2025 Risks, benefits, and alternatives of the medication have been discussed with the patient. She would like to move forward with a prescription of adipex. homero Not available 03/28/2025 17:58:13 Plan of Treatment Reminders Order Date Submit Date Provider Last Modified By Organization Details Last Modified Time Details Appointments Follow Up 20 2024 06:00P Jalil Webb APRN Not available Not available Not available Lab drug screen, urine 2024 025 [facility], [address] [place] [address], [address], 02/23/2025 15:49:55 Referral None recorded. Procedures None recorded. Surgeries None recorded. Imaging None recorded. Medication Orders phentermi ne 37.5 mg tablet 2024 025 [facility], [address] [place], [address], 03/28/2025 17:48:28 phentermi ne 37.5 mg tablet 2024 025 [facility], [address] [place], [address], 02/23/2025 15:50:04 phentermi ne 37.5 mg tablet 2024 025 [facility], [address] [place], [address], 12/20/2024 18:09:27 phentermi ne 37.5 mg tablet 2024 025 [facility], [address] [place], [address], 11/25/2024 16:29:48 Patient TargetsNo targets recorded. Patient Instructions Encounter Date Encounter Id Patient Instructions Last Modified By Organization Details Last Modified Time 02/07/2025 [id number] Treament Plan: Patient will start medication as directed. Patient will continue exercise, watch calorie intake, and follow up for weight check in 1 month. cbuckler Not available 02/07/2025 13:05:00 03/28/2025 [id number] learning about healthy weight efryman Not available 03/28/2025 17:48:21 body mass index: care instructions [place] Not available 03/28/2025 17:48:21 Treament Plan: Patient will start medication as directed. Patient will continue exercise, watch calorie intake, and follow up for weight check in 1 month. cbuckler Not available 03/28/2025 17:31:55 Reason for Referral None Reported. Results Created Date Observation Date Name Description Value Unit Range Abnormal Flag Note LastModifiedBy Organization Detail LastModifiedTime 02/24/20 25 02/23/2025 drug scree n, urine THC negati ve Not Available [address], [address], 02/23/2025 15:35:24 02/24/20 25 02/23/2025 drug scree n, urine TCA negati ve Not Available [address], [address], 02/23/2025 15:35:24 02/24/20 25 02/23/2025 drug scree n, urine BAR negati ve Not Available [address], [address], 02/23/2025 15:35:24 02/24/20 25 02/23/2025 drug scree n, urine BZO negati ve Not Available [address], [address], 02/23/2025 15:35:24 02/24/20 25 02/23/2025 drug scree n, urine MTD negati ve Not Available [address], [address], 02/23/2025 15:35:24 02/24/20 25 02/23/2025 drug scree n, urine AMP negati ve Not Available [address], [address], 02/23/2025 15:35:24 02/24/20 25 02/23/2025 drug scree n, urine MOP negati ve Not Available [address], [address], 02/23/2025 15:35:24 02/24/20 25 02/23/2025 drug scree n, urine OXY negati ve Not Available [address], [address], 02/23/2025 15:35:24 02/24/20 25 02/23/2025 drug scree n, urine MDMA negati ve Not Available [address], [address], 02/23/2025 15:35:24 02/24/20 25 02/23/2025 drug scree n, urine DEANA negati ve Not Available [address], [address], 02/23/2025 15:35:24 02/24/20 25 02/23/2025 drug scree n, urine PCP negati ve Not Available [address], [address], 02/23/2025 15:35:24 02/24/20 25 02/23/2025 drug scree n, urine MET negati ve Not Available [address], [address], 02/23/2025 15:35:24 Result Notes None recorded. 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 Procedures Surgical History Date Name Laterality Status Provider Name and Address Organization Details Recorded Time 07/16/20 22 Caesarean Section completed Renae Toro [place] - [facility] 03/23/2023 15:45:51 Cholecystectomy, laparoscopic completed Renae Toro [place] - [facility] 03/23/2023 15:50:19 Imaging Results None [...] Details Last Updated DateTime 5 172.72 cm 31.5 kg/m2 41461.6 2 g 98.1 [degF] 97 /min 97 % 97 % 18 /min 116 mm[Hg] 72 mm[Hg] Renae Toro [place] - [facility] 16:14:21 Date Recorded Body height Body mass index (BMI) Body weight Body temperature Heart rate Oxygen saturation Oxygen saturation in Arterial blood by Pulse oximetry Respiratory rate Systolic blood pressure Diastolic blood pressure Provider Name and Address Organization Details Last Updated DateTime 5 172.72 cm 31.3 kg/m2 35643.0 3 g 97.9 [degF] 92 /min 98 % 98 % 18 /min 100 mm[Hg] 60 mm[Hg] Renae Toro [place] - [facility] 17:51:24 Date Recorded Body height Body mass index (BMI) Body weight Heart rate Oxygen saturation Oxygen saturation in Arterial blood by Pulse oximetry Respiratory rate Systolic blood pressure Diastolic blood pressure Provider Name and Address Organization Details Last Updated DateTime 5 172.72 cm 32.1 kg/m2 12135.9 9 g 77 /min 98 % 98 % 18 /min 108 mm[Hg] 62 mm[Hg] Renae Toro [place] - [facility] 13:21:46 Date Recorded Body height Body mass index (BMI) Body weight Heart rate Respiratory rate Oxygen saturation Oxygen saturation in Arterial blood by Pulse oximetry Body temperature Systolic blood pressure Diastolic blood pressure Provider Name and Address Organization Details Last Updated DateTime 5 172.72 cm 33 kg/m2 74206.5 4 g 100 /min 18 /min 97 % 97 % 97.9 [degF] 112 mm[Hg] 68 mm[Hg] Vickie Camejo [place] - [facility] 15:22:38 Date Recorded Body height Body mass index (BMI) Body weight Body temperature Heart rate Oxygen saturation Oxygen saturation in Arterial blood by Pulse oximetry Respiratory rate Systolic blood pressure Diastolic blood pressure Provider Name and Address Organization Details Last Updated DateTime 5 172.72 cm 31.8 kg/m2 17144.8 1 g 97.2 [degF] 100 /min 96 [...] Or The Highest Degree You Have Received? [id number] Information not available 03/23/2023 Have There Been Any Changes To Your Family Or Social Situation? No Information no t available 03/23/2023 Have You Recently Or Are You Planning To Travel To An Area With Zika Virus? No Information not available 03/23/2023 How Many Years Have You Used Illicit Or Recreational Drugs? 0 Information not available 03/23/2023 Do You Have A Medical Power Of Mud Mixer Helper? 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 [id number] Information not available 03/23/2023 Do you have [...] polysaccharide PPV23 6 completed Renae Toro null, [place] - [facility] 03/26/2023 11:28:14 Tdap 8 completed Renae Muna null, [place] - [facility] 03/26/2023 11:28:14 Tdap 0 completed Renae Muna [place] - [facility] 03/26/2023 11:28:14 Hep B, adolescent or pediatric 8 completed Renae Muna [place] - [facility] 03/26/2023 11:28:14 Hep B, adolescent or pediatric 7 completed Renae Muna [place] [facility] 03/26/2023 11:28:15 Influenza, split virus, quadrivalent, PF 8 completed Renae Muna [place] - [facility] 03/26/2023 11:28:15 Influenza, split virus, quadrivalent, PF 7 completed Renae Muna [place] - [facility] 03/26/2023 11:28:15 Past Encounters Encounter ID Performer Location Encounter Start Date Encounter Closed Date Diagnosis/Indication Diagnosis SNOMED-CT Code Diagnosis ICD10 Code Diagnosis Note [id number] Chacho Webb MACH[employer] WORK[employer] [address] [address] 03/23/2023 15:07:55 03/23/2023 16:19:52 Body mass index 30+ - obesity 805654738 Z68.32 Obesity 725076844 E66.9 Prediabetes 357258830 R7 3.03 Fatigue 03883295 R53.83 Vitamin D deficiency 347 46622 E55.9 [id number] Eugonda Fryman, [address] [address] 03/26/2023 11:14:25 03/26/2023 11:45:46 Body mass index 30+ - obesity 226565006 Z68.32 Pt compliant with plan of careKasper reviewed and appropriat emedicatio n compliance discussedL ast uds: 03/26/23Con trol substance agreement on file Obesity 637488393 E66.9 will try to see if melvin is covered on her insurance- if not will send adipex- discussed med and diet with pt Prediabetes 892201549 R7 3.03 Hyperlipidemia 90700024 E78.5 [id number] Chacho Webb [address] [address] 04/27/2023 10:53:07 04/27/2023 11:17:27 Body mass index 30+ - obesity 890632401 Z68.32 Pt compliant with plan of careKasper reviewed and appropriat emedicatio n compliance discussedL ast uds: 03/26/23Con trol substance agreement on filelow fat/carb/c alorie diet and exercise plan Obesity 780001134 E66.9 pt states she is on ozempic 0.5mg and keto diet [id number] Chacho Webb [address] [address] 05/25/2023 13:59:03 05/25/2023 14:41:01 Body mass index 30+ - obesity 935224143 Z68.32 Pt compliant with plan of careKasper reviewed and appropriat emedicatio n compliance discussedL ast uds: 03/26/23Con trol substance agreement on filelow fat/carb/c alorie diet and exercise plan [id number] Chacho Webb [address] [address] 06/22/2023 13:02:28 06/22/2023 13:58:23 Body mass index 30+ - obesity 793722265 Z68.32 Pt compliant with plan of careKasper reviewed and appropriat emedicatio n compliance discussedL ast uds: 03/26/23Con trol substance agreement on filelow fat/carb/c alorie diet and exercise plandrug holiday next month [id number] Chacho Webb APRN [address] [address] 08/24/2023 10:01:17 08/24/2023 10:43:45 Body mass index 30+ - obesity 309831011 Z68.32 Pt compliant with plan of careKasper reviewed and appropriat emedicatio n compliance discussedL ast uds: 08/24/23Co ntrol substance agreement on filelow fat/carb/c alorie diet and exercise plandrug holiday next month Long-term drug therapy 692148331 Z79.902 [id number] Chacho Webb APRN [address] [address] 09/21/2023 13:59:29 09/21/2023 15:13:40 Body mass index 25-29 - overweight 298699232 Z68.29 29.8contin ue diet and exercise plan Overweight 551417563 E66 .3 [id number] Chacho Webb APRN [address] [address] 10/26/2023 10:12:08 10/26/2023 10:33:09 Body weight problem 267910971 R68.89 Prediabetes 634623335 R7 3.03 pt states she is continued with diet and exercisePt compliant with plan of careKasper reviewedme dication compliance discussedL ast uds:Control substance agreement on file Body mass index 30+ - obesity 173838896 Z68.30 Pt compliant with plan of careKasper reviewed and appropriat emedicatio n compliance discussedL ast uds: 08/24/23Co ntrol substance agreement on filelow fat/carb/c alorie diet and exercise plandrug holiday next month- will do one more month then her bmi she will not contiune. Obesity 942373534 E66.9 pt states she is on keto diet [id number] Eugonda Fryman, [address] [address] 12/21/2023 13:20:27 12/21/2023 14:05:38 Overweight 620648501 E66.3 Body mass index 25-29 - overweight 962012778 Z68.29 30.1contin ue diet and exercise planPt compliant with plan of careKasper reviewedme dication compliance discussedL ast uds:Control substance agreement on file [id number] Chacho Webb [address] [address] 02/19/2024 14:43:42 02/19/2024 15:21:27 Overweight 464719223 E66.3 Body mass index 25-29 - overweight 477252826 Z68.29 31.5contin ue diet and exercise planPt compliant with plan of careKasper reviewedme dication compliance discussedL ast uds:Control substance agreement on file Body mass index 30+ - obesity 085045680 Z68.31 Pt compliant with plan of careKasper reviewed and appropriat emedicatio n compliance discussedL ast uds: 08/24/23Co ntrol substance agreement on filelow fat/carb/c alorie diet and exercise plan Obesity 583315034 E66.9 pt states she is on keto diet [id number] Chacho Webb [address] [address] 04/26/2024 17:58:02 04/26/2024 18:49:40 Overweight 990071458 E66.3 Discussed healthy eating and portioning foods. Body mass index 25-29 - overweight 034204231 Z68.29 31.5contin ue diet and exercise planPt compliant with plan of careKasper reviewedme dication compliance discussedL ast uds:Control substance agreement on file [id number] Chacho Webb [address] [address] 06/07/2024 18:01:27 06/07/2024 18:53:07 Body mass index 25-29 - overweight 149890801 Z68.29 32.9contin ue diet and exercise planPt compliant with plan of careKasper reviewedme dication compliance discussedL ast uds: 4Control substance agreement on file [id number] Chacho Webb [address] [address] 06/28/2024 17:24:49 06/28/2024 17:58:23 Screening for malignant neoplasm of cervix 846283023 Z12.4 Patient declined at this time. Vitamin D deficiency 347 82651 E55.9 04/03 vit d was 19.6 Hypercholesterolemia 136 00552 E78.00 04/03 LDL were 110 (high) and HDL was 37 (low) Influenza vaccination declined 827452351 Z28.21 patient declined flu vaccine at this time Body mass index 30+ - obesity 429386247 Z68.31 Obesity 054818449 E66.9 [id number] Chacho Webb [address] [address] 07/26/2024 17:20:45 07/26/2024 17:55:19 Body mass index 30+ - obesity 395526000 Z68.31 Pt compliant with plan of careKasper reviewed #[id number] medication compliance discussedL ast uds: 4Control substance agreement on file [id number] Christinanoah Webb [address] [address] 08/23/2024 17:37:01 08/23/2024 18:08:04 Body mass index 25-29 - overweight 723244540 Z68.29 32.9contin ue diet and exercise planPt compliant with plan of careKasper reviewed #[id number] medication compliance discussedL ast uds: 4Control substance agreement on filemed sent late was waiting on von it was manual processing [id number] Chacho Webb [address] [address] 09/12/2024 09:54:23 09/12/2024 10:36:58 Overweight 621077977 E66.3 Discussed healthy eating and portioning foods. General ex amination of patient 751444699 Z00.00 Screening for cardiovascular system disease 402193790 Z13.6 Endocrine/ metabolic screening 903979719 Z13.228 Screening mammography 24 279504 Z12.31 Exercises education, guidance, and counseling 700159918 Z71.82 The patient was advised to continue a healthy diet and exercise regularly. Dietary ma nagement surveillance 588224448 Z71.3 Middle ear effusion 1004 286372 H74.8X9 Body mass index 25-29 - overweight 055289394 Z68.29 30.9contin ue diet and exercise planPt compliant with plan of Zhao reviewed 538721820b edication compliance discussedL ast uds: 4Control substance agreement on filewill prescribe med and send with hold - [id number] Chacho Webb[address] [address] 10/25/2024 17:10:46 10/25/2024 17:41:57 Obesity 689780387 E66.9 continue low fat/carb/c alorie diet and exercisedr this month [id number] Chacho Webb [address] [address] 11/25/2024 16:00:27 11/25/2024 16:30:20 Body mass index 25-29 - overweight 467682378 Z68.29 31.5contin ue diet and exercise planPt compliant with plan of Zhao reviewed -manual process#24 [id number] ication compliance discussedL ast uds: 4Control substance agreement on file,adipe x agreement on filediscus sed diet and exercise [id number] Chacho Webb [address] [address] 12/20/2024 17:43:58 12/20/2024 18:07:05 Obesity 607911493 E66.9 continue low fat/carb/c alorie diet and exerciseka sper#94353 2809 Body mass index 25-29 - overweight 962537170 Z68.29 31.3contin ue diet and exercise planPt compliant with plan of caremedica tion compliance discussedC ontrol substance agreement on file,adipe x agreement on filediscus sed diet and exercise [id number] Chacho Webb [address] [address] 02/07/2025 12:51:52 02/07/2025 14:00:31 Body mass index 25-29 - overweight 121969791 Z68.29 31.3contin ue diet and exercise planPt compliant with plan of caremedica tion compliance discussedC ontrol substance agreement on file,adipe x agreement on filediscus sed diet and exercisere turn after 02/24 since wt gain. [id number] Chacho Webb[address] [address] 02/23/2025 15:05:20 02/23/2025 15:38:28 Overweight 651082942 E66.3 Discussed healthy eating and portioning foods with diet and exercise Long-term current use of drug therapy 487926096 Z79.899 Body mass index 25-29 - overweight 075972397 Z68.29 33continue diet and exercise planPt compliant with plan of caremedica tion compliance discussedC ontrol substance agreement on file,adipe x agreement on filediscus sed diet and exercise [id number] Christinanoah Webb [address] [address] 03/28/2025 17:25:55 03/28/2025 18:02:06 Overweight 113693844 E66.3 Discussed healthy eating and portioning foods with diet and exercise Obesity 970364794 E66.9 continue low fat/carb/c alorie diet and exerciseka sper # 093598702 Body mass index 25-29 - overweight 901640793 Z68.29 31.8contin ue diet and exercise planPt compliant with plan of caremedica tion compliance discussedC ontrol substance agreement on file,adipe x agreement on filediscus sed diet and exercise Body mass index 30+ - obesity 651584949 Z68.31 31.8contin ue diet and exercise planPt compliant with plan of caremedica tion compliance discussedC ontrol substance agreement on file,adipe x agreement on filediscus sed diet and exercise Health Concerns Section Related Observation LastModified by Organization Detai ls LastModified Time None Recorded Concern Status LastModified by Organization Details LastModified Time None Recorded Advance Directives Directive N: Payers Insurance Date Sequence Insurance Name Policy Number Policy B[place] Covered Member ID [place] Member ID Guarantor Name 03/23/2023 2 [place] [id number] Emely Kaylen [id number] Normandee Kaylen Feeback 03/25/2025 1 [facility] (MEDICAID O) Normandee B [place] [id number] Normandee Kaylen Feeback 03/18/2025 [place] [facility] [place] [place]ID) Normandee B Kaylen [id number] Normandee [place] Feeback Notes Date Note Type Note Provider Name and Address Organization Details Recorded Time 11/25/2024 text/html 29 yr old female presents for a weight loss follow up. Has been off meds last month and up over 8 lbs. Chacho Webb APRN [address], [place], [address], [employer] - [facility] 11/25/2024 16:30:27 12/20/2024 text/html 29 yr old female presents for a weight loss follow up. down 1 lb. pt states doing well on med no issues at this time Chacho Webb APRN [address], [place], [address], [place] - [facility] 12/20/2024 18:09:42 02/07/2025 text/html 29 yr old female presents for a weight loss follow up. missed appointment 2 weeks ago. up 6 lbs Chacho Webb APRN [address], [place], [address], [place] - [facility] 02/07/2025 13:58:14 02/23/2025 text/html 29 year old janis miller who presents to the office today for a follow up onweight loss-at today's appt she weighs 217 lbs, last month was her month off adipex and she states she did not do well on her dietat her last appt on 02-08-24 she weighed 211 lbs Christinagiselelyle GrimmGERARDO chacon [address], [place], [address], [place] - [facility] 02/23/2025 15:50:33 03/28/2025 text/html 29 yr old female presents for a weight loss follow up. down 8 lbs pt states doing well on meds with diet and exercise Chacho Webb APRN [address], [place], [address], [place] - [facility] 03/28/2025 17:59:37 OBGyn Episode No OBEpisode recorded.
--- OUTSIDE RECORDS SUMMARY | 2025-03-29 08:13 | XMS_ITS | Continuity of Care Document ---
Author Organization [facility] Address [address] [place] [id number] Assessment No assessment recorded. Plan of Treatment Reminders Order Date Submit Date Provider Last Modified By Organization Details Last Modified Time Details Appointments Follow Up 2024 06:00P Jalil Webb APRN Not available Not available Not available Lab drug screen, urine 2024 025 [facility], [address] [place] [address], [id number], 02/23/2025 15:49:55 Referral None recorded. Procedures None recorded. Surgeries None recorded. Imaging None recorded. Medication Orders phentermi ne 37.5 mg tablet 2024 025 [facility], [address], [address], 02/23/2025 15:50:04 Patient TargetsNo targets recorded. Patient InstructionsNo instructions recorded. Reason for Referral None Reported. Results Created Date Observation Date Name Description Value Unit Range Abnormal Flag Note LastModifiedBy Organization Detail LastModifiedTime 02/24/2002/23/2025 drug scree n, urine THC negati ve Not Available [address], [address], 02/23/2025 15:35:24 02/24/20 25 02/23/2025 drug scree n, urine TCA negati ve Not Available [address], [address], 02/23/2025 15:35:24 02/24/20 25 02/23/2025 drug scree n, urine BAR negati ve Not Available [address], [address], 02/23/2025 15:35:24 02/24/20 25 02/23/2025 drug scree n, urine BZO negati ve Not Available [address], [address], 02/23/2025 15:35:24 02/24/20 25 02/23/2025 drug scree n, urine MTD negati ve Not Available [address], [address], 02/23/2025 15:35:24 02/24/20 25 02/23/2025 drug scree n, urine AMP negati ve Not Available [address], [address], 02/23/2025 15:35:24 02/24/20 25 02/23/2025 drug scree n, urine MOP negati ve Not Available [address], [address], 02/23/2025 15:35:24 02/24/20 25 02/23/2025 drug scree n, urine OXY negati ve Not Available [address], [address], 02/23/2025 15:35:24 02/24/20 25 02/23/2025 drug scree n, urine MDMA negati ve Not Available [address], [address], 02/23/2025 15:35:24 02/24/20 25 02/23/2025 drug scree n, urine DEANA negati ve Not Available [address], [address], 02/23/2025 15:35:24 02/24/20 25 02/23/2025 drug scree n, urine PCP negati ve Not Available [address], [address], 02/23/2025 15:35:24 02/24/20 25 02/23/2025 drug scree n, urine MET negati ve Not Available [address], [address], 02/23/2025 15:35:24 Result Notes None recorded. Problems Name Problem SNOMED Code Status Onset Date Resolution Date Notes Provider Name and Address Organization Details Recorded Time Gestatio nal diabetes mellitus 37882870 Completed 03/23/2023 Removal Reason: had with her pregnanc ies Renae Toro null, [place] - [facility] 15:47:30 Prediabe michelle 279932576 Active Renae Toro null, [place] - [facility] 15:48:02 Vitamin D deficien cy 25644028 Active 2022 Chacho Webb, [employer] [address], [place], [address] , [place] - [facility] 08:33:30 Overweig ht 862383833 Active 2022 Vickie Stears null, [place] - [facility] 14:35:25 Notes:gestational diabetes Problem Notes None recorded. Procedures Surgical History Date Name Laterality Status Provider Name and Address Organization Details Recorded Time 07/16/20 Caesarean Section completed Renae Toro [place] - [facility] 03/23/2023 15:45:51 Cholecystectomy, laparoscopic completed Renae Toro [place] - [facility] 03/23/2023 15:50:19 Imaging Results None [...] and Address Organization Details Last Updated DateTime 172.72 cm 33 kg/m2 24232.5 4 g 100 /min 18 /min 97 % 97 % 97.9 [degF] 112 mm[Hg] 68 mm[Hg] Vickie Camejo [place] - [facility] 15:22:38 Social History Question Answer Notes LastModified by Organizat ion Details LastModified Time Tobacco Smoking Status Current Some Day Smoker Renae robert, [place] - [facility] 03/23/2023 15:45:50 Do You [...] Or The Highest Degree You Have Received? [id number] Information not available 03/23/2023 Have There Been Any Changes To Your Family Or Social Situation? No Information no t available 03/23/2023 Have You Recently Or Are You Planning To Travel To An Area With Zika Virus? No Information not available 03/23/2023 How Many Years Have You Used Illicit Or Recreational Drugs? 0 Information not available 03/23/2023 Do You Have A Medical Power Of Corporate Communications Associate? No Information not available 03/23/2023 What Was [...] not available 03/23/2023 What is your occupation? [employer] Information not available 03/23/2023 Do you have [...] anxious, or unable to sleep at night)? [id number] Information not available 03/23/2023 Do you have [...] available 2022 15:45:22 Medical History Condition Response Depression Y Obesity Y Diabetes Y Gynecological History Statement/Question Response Abnormal Pap [...] [facility] 03/26/2023 11:28:14 Tdap 8 completed Renae Turnerler null, [place] - [facility] 03/26/2023 11:28:14 Tdap 0 completed Renae Toro [place], [place] - [facility] 03/26/2023 11:28:14 Hep B, adolescent or pediatric 8 completed Renae Turner[place] null, [place] - [facility] 03/26/2023 11:28:14 Hep [...] SNOMED-CT Code Diagnosis ICD10 Code Diagnosis Note [id number] Chacho Webb APRN [address] [address] 02/07/2025 12:51:52 02/07/2025 14:00:31 Body mass index 25-29 - overweight 950973298 Z68.29 31.3contin ue diet and exercise planPt compliant with plan of caremedica tion compliance discussedC ontrol substance agreement on file,adipe x agreement on filediscus sed diet and exercisere turn after 02/24 since wt gain. [id number] Chacho Webb APRN [address] [address] 02/23/2025 15:05:20 02/23/2025 15:38:28 Overweight 360495745 E66.3 Discussed healthy eating and portioning foods with diet and exercise Long-term current use of drug therapy 831649165 Z79.899 Body mass index 25-29 - overweight 157463840 Z68.29 33continue diet and exercise planPt compliant [...] Member ID [place] Member ID Guarantor Name 02/23/2025 1 [facility] (MEDICAID HMO) Normandee B Kaylen [id number] Normandee Kaylen Feeback Notes Date Note Type Note Provider Name and Address Organization Details Recorded Time 02/23/2025 text/html 29 year old female who presents to the office today for a follow up onweight loss-at today's appt she weighs 217 lbs, last month was her month off adipex and she states she did not do well on her dietat her last appt on 02-08-24 she weighed 211 lbs Chacho Webb APRN [address], [place], [address], [place] - [facility] 02/23/2025 15:50:33 OBGyn Episode No OBEpisode recorded.
[2025-03-29 08:38] LABS: Basophils % 0.5 % (0.1-2.0); Eosinophils # 0.4 Kmm3 (0.0-0.4); Eosinophils % 5.4 % (0.1-12.0); Hematocrit 41.3 % (37.0-47.0); Hemoglobin 13.7 g/dL (12.2-16.2); Immature Granulocytes # 0.01 10^3uL; Immature Granulocytes % 0.2 %; Lymphocytes % 30.6 % (10-50); Mean Corpuscular HGB Conc 33.2 g/dL (31.8-35.4); Mean Corpuscular Hemoglobin 30.4 pg (27.0-31.2); Mean Corpuscular Volume 91.6 fl (81-99); Mean Platelet Volume 9.4 fl (7.4-10.4); Monocytes # 0.5 K/mm3 (0.1-1.0); Monocytes % 6.8 % (1.7-9.3); Neutrophils # 3.8 K/mm3 (1.8-7.8); Neutrophils % 56.5 % (37.0-80.0); Nucleated Red Blood Cells # 0 10^3/uL; Nucleated Red Blood Cells % 0 %; Platelet Count 250 K/mm3 (142-424); Red Blood Count 4.51 M/mm3 (4.20-5.40); Red Cell Distribution Width 13.7 % (11.5-17.5); Red Cell Distribution Width-SD 46.2 fL; White Blood Count 6.6 K/mm3 (4.8-10.8)
[2025-03-29 09:13] LABS: Albumin Level 4.1 g/dl (3.5-5.0); Chloride 110 mmol/L (98-107); Potassium 4.5 mmoL/L (3.5-5.1); Sodium 141 mmol/L (136-145)
[2025-03-29 09:15] LABS: Blood Urea Nitrogen 13 mg/dl (7-17); Estimated Glomerular Filt Rate 100 ml/min (>60); GFR (African American) 121 ML/MIN (>60)
[2025-03-29 09:16] LABS: Alanine Aminotransferase 16 U/L (12-78); Albumin/Globulin Ratio 1.5 (1.1-1.8); Alkaline Phosphatase 54 U/L (38-126); Anion Gap 7.5 mEq/L (5-15); Aspartate Amino Transferase 21 U/L (14-36); Bilirubin,Total 0.5 mg/dl (0.2-1.3); Calcium 9.1 mg/dl (8.4-10.2); Carbon Dioxide 28 mmol/L (22.0-30.0); Chol/HDL Ratio 4.7 (1-3.5); Cholesterol 198 mg/dl (140-200); Globulin 2.8 g/dL (1.3-3.2); Glucose 112 mg/dl (74-100); HDL Cholesterol 42 mg/dl (40-60); Total Protein,Serum 6.9 g/dl (6.3-8.2); Triglycerides 131 mg/dl (30-150); VLDL Cholesterol 26 mg/dL (0-40)
[2025-03-29 09:27] LABS: Direct LDL Cholesterol 101.72 mg/dL (100-129)
[2025-03-29 09:33] LABS: Triiodothryronine (T3) Uptake 27 % (23.5-40.5)
[2025-03-29 09:34] LABS: Free Thyroxine Index 2.3 ug/dL (5.93-13.13); T4 (Thyroxine) 8.7 ug/dl (5.53-11.0)
[2025-03-29 09:49] LABS: 25-OH Vitamin D, Total 24.3 ng/mL (30-100)
[2025-03-29 09:59] LABS: HIV Combo NEGATIVE (Negative)
[2025-03-29 10:04] LABS: Hepatitis C Ab Qual. W/ RFX NEGATIVE (Negative)
[2025-03-29 11:05] LABS: Hemoglobin A1C 5.3 % (4.0-6.0)
[2025-03-30 08:13] LABS: Hepatitis B Surface Antigen Negative (Negative)
== END 2025-03-29 23:59 | disposition home or self-care (01) ==
LOC: LAB 08:08
PROVIDERS: PCP Nurse Practitioner Family; Visit Provider Obstetrics & Gynecology
DX: R53.83 Other fatigue (principal)
CPT/HCPCS: 36415; 80053; 80061; 82306; 83036; 84436; 84443; 84479; 85025; 86803; 87340; 87389

== ENCOUNTER 2025-06-28 18:11 | Outpatient (CLI) | payer OTHER, SELFPAY ==
--- OUTSIDE RECORDS SUMMARY | 2025-06-29 11:20 | XMS_ITS | Clinical Summary ---
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 Active glucose monitor monitoring kitIndications:D iet controlled gestational diabetes mellitus (GDM), antepartum 1 each As Needed (check glucose). Check blood glucose first thing in the morning and two hours after each meal. Record your values and bring to appointments. 1 each 2 Active glucose blood test stripIndications :Diet controlled gestational diabetes mellitus (GDM), antepartum Use as instructed 100 each 6 2 Active Lancets Thin miscIndications: Diet controlled gestational diabetes mellitus (GDM), antepartum 1 each 4 (Four) Times a Day. 100 each 6 2 Active Active Problems Problem Noted Date Diagnosed Date Dichorionic diamniotic twin , antepartu m 04/02/2022 12/16/2019 Previous section 12/16/2019 Resolved Problems Problem Noted Date Diagnosed Date Resolved Date arrhythmia affecting p regnancy, antepartum 12/16/2019 04/02/2022 Social History Tobacco Use Types Packs/Day Years Used Date Smoking Tobacco: Every Day Cigarettes Smokeless Tobacco: Never Alcohol Use Standard Drinks/Week Comments Not Asked 0 (1 standard drink = 0.6 oz pur e alcohol) socially when not Abuse Screen Answer Date Recorded Unsafe at Home or Work/School Not on file Feels Threatened by Someone? Not on file 06/2023 Does Anyone Keep You from Co ntacting Others or Doint Things Outside the Home? Not on file 07/20/2023 Physical Sign of Abuse Present Not on file 1 Housing Stability Answer Date Recorded Current Living Arrangements Not on file 06/2023 Potentially Unsafe Housing Conditions Not on gama e 07/20/2023 Family and Community Support Answer David e Recorded Help with Day-to-Day Activities Not on file 07/20/2023 Lonely or Isolated Not on file 07/20/2023 Employment Answer Date Recorded Do you want help finding or keeping work or a kitty b? Not on file 07/20/2023 Disabilities Answer Date Recorded Concentrating, Remembering, or Making Decisions Difficulty Not on file 07/20/2023 Doing Errands Independently Difficulty Not on fi le 07/20/2023 Education Answer Date Recorded Help with school or training? Not on file Preferred Language Not on file 07/20/2023 Comments No Sex and Gender Information Value Date Recorded Sex Assigned at Not on file Legal Sex Female 11:04 AM EDT Gender Identity Not on file Sexual Orientation Not on file Last Filed Vital Signs Vital Sign Reading Time Taken Comments Blood Pressure 102/58 04/29/2022 2:20 PM EDT Pulse - - Temperature - - Respiratory Rate - - Oxygen Saturation - - Inhaled Oxygen Concentration - - Weight 107 kg (236 lb) 04/29/2022 2:20 PM EDT Height 172.7 cm (5' 8 ) 12/16/2019 10:43 AM EST Body Mass Index 35.88 12/16/2019 10:43 AM EST Plan of Treatment Health Maintenance Due Date Last Done Comments Annual Gynecologic Pelvic an d Breast Exam 1997 TDAP/TD VACCINES (2 - Td or Tdap) 01/03/2018 008 ANNUAL PHYSICAL 12/16/2019 HEPATITIS C SCREENING 12/16/2019 INFLUENZA VACCINE 05/12/2025 Pneumococcal Vaccine 0-49 Aged Out 08/23/2016 No longer eligible based on patient's age to complete this topic Insurance [facility] [employer] PPO Care Teams Insulation Batting Machine Operator Relationship Specialty Start Date End Date Ac Wisdom MD [address] [place] [address] PCP - General Internal Medicine 03/17/22
--- OUTSIDE RECORDS SUMMARY | 2025-06-29 11:20 | XMS_ITS | Clinical Summary ---
Author Organization [facility] Address [address] [place] [address] Care Team Providers Care Web Publisher Name Role Phone Unavailable Primary Care Provider [...] Date Last Done Comments [facility]-Depression Screening 1997 [facility]-Infant/Child/Adol SDOH Screenings 1997 [facility]-Varicella Vaccines (1 of 2 - 13+ 2-dose series) 2010 [facility]- SDOH Screenings 2015 [facility]-Adult SDOH Screenings 2015 [facility]-DTaP,Tdap,and Td Vaccine s (1 - Tdap) 2016 [facility]-Hepatitis B Vaccines (1 of 3 - 19+ 3-dose series) 2016 [facility]-Pap Smear 2018 HPV Vaccines (1 - 3-dose SCD M series) 2024 [id number] Vaccine (1 - 20 24-25 season) 2025 [facility]-Influenza Vaccine (#1) 2025 [facility]-Zoster Vaccines (1 of 2) 2047 [...]
== END 2025-06-28 23:59 | disposition home or self-care (01) ==
LOC: LAB.DROPOF 06-29 11:18
PROVIDERS: PCP Nurse Practitioner; Visit Provider Nurse Practitioner
DX: R35.0 Frequency of micturition (principal)
CPT/HCPCS: 87086; 87088

== ENCOUNTER 2025-08-04 10:53 | Outpatient (CLI) | payer OTHER, SELFPAY ==
--- OUTSIDE RECORDS SUMMARY | 2025-08-04 11:09 | XMS_ITS | Clinical Summary ---
Author Organization [facility] Address [address] [place] [place] [address] Care Team Providers Care Clinical Nurse Occupational Medicine Name Role Phone Unavailable Primary Care Provider [...] (1 - 3-dose SCD M series) 2024 [id number] Vaccine (1 - 20 24-25 season) 2025 [...]
--- OUTSIDE RECORDS SUMMARY | 2025-08-04 11:09 | XMS_ITS | Data Portability ---
Author Organization Count includes the [facility] Address [address] [place] [address] Assessment Encounter Date Assessment Date Assessment LastModified by Organization Details LastModified Time 03/28/2025 03/28/2025 Risks, benefits, and alternatives of the medication have been discussed with the patient. She would like to move forward with a prescription of adipex. efryman Not available 03/28/2025 17:58:13 05/23/2025 05/23/2025 Risks, benefits, and alternatives of the medication have been discussed with the patient. She would like to move forward with a prescription of adipex and zebound. efryman Not available 05/23/2025 18:27:00 Plan of Treatment Reminders Order Date Submit Date Provider Last Modified By Organization Details Last Modified Time Details Appointments Establish ed Patient 2024 10:40A Jalil Webb APRN Not available Not available Not available Follow Up 20 2024 10:40A M Chacho Webb APRN Not available Not available Not available Lab drug screen, urine 2024 025 [facility], [address] [place] [address], [id number], 08/04/2025 10:21:20 drug screen, urine 2024 025 [facility], [address] [place] [address], [phone], 02/23/2025 15:49:55 Referral None recorded. Procedures None recorded. Surgeries None recorded. Imaging None recorded. Medication Orders Adipex-P 37.5 mg tablet 2024 [facility], [address] [place] [address] [address] [place], [id number], 08/04/2025 10:27:52 Wegovy 0.25 mg/0.5 mL subcutane ous pen injector 2024 025 [facility], [address] [place] [address] [address] [place], [id number], 08/04/2025 10:33:49 phentermi ne 37.5 mg tablet 2024 [facility] [facility] [place], [address], 05/23/2025 18:28:31 Zepbound 2.5 mg/0.5 mL subcutane ous pen injector 2024 025 [facility] [place], [address], 08/04/2025 10:02:46 phentermi ne 37.5 mg tablet 2024 025 [facility], [address] [place], [address], 03/28/2025 17:48:28 phentermi ne 37.5 mg tablet 2024 025 [facility] [place], [address], 02/23/2025 15:50:04 Patient TargetsNo targets recorded. Patient Instructions Encounter Date Encounter Id Patient Instructions Last Modified By Organization Details Last Modified Time 02/07/2025 [id number] Treament Plan: Patient will start medication as directed. Patient will continue exercise, watch calorie intake, and follow up for weight check in 1 month. cbuckler Not available 02/07/2025 13:05:00 03/28/2025 [id number] learning about healthy weight efryman Not available 03/28/2025 17:48:21 body mass index: care instructions efryman Not available 03/28/2025 17:48:21 Treament Plan: Patient will start medication as directed. Patient will continue exercise, watch calorie intake, and follow up for weight check in 1 month. cbuckler Not available 03/28/2025 17:31:55 05/23/2025 [id number] Treament Plan: Patient will start medication as directed. Patient will continue exercise, watch calorie intake, and follow up for weight check in 1 month. bstears Not available 05/23/2025 17:12:52 08/04/2025 [id number] learning about healthy weight efryman Not available 08/04/2025 10:21:20 body mass index: care instructions efryman Not available 08/04/2025 10:21:20 Reason for Referral None Reported. Results Created Date Observation Date Name Description Value Unit Range Abnormal Flag Note LastModifiedBy Organization Detail LastModifiedTime 02/24/20 25 02/23/2025 drug scree n, urine THC negati ve Not Available [address], [address], 02/23/2025 15:35:24 02/24/20 25 02/23/2025 drug scree n, urine TCA negati ve Not Available [address], [address], 02/23/2025 15:35:24 02/24/20 25 02/23/2025 drug scree n, urine BAR negati ve Not Available [address], [address], 02/23/2025 15:35:24 02/24/20 25 02/23/2025 drug scree n, urine BZO negati ve Not Available [address], [address], 02/23/2025 15:35:24 02/24/20 25 02/23/2025 drug scree n, urine MTD negati ve Not Available [address], [address], 02/23/2025 15:35:24 02/24/20 25 02/23/2025 drug scree n, urine AMP negati ve Not Available [address], [address], 02/23/2025 15:35:24 02/24/20 25 02/23/2025 drug scree n, urine MOP negati ve Not Available [address], [address], 02/23/2025 15:35:24 02/24/20 25 02/23/2025 drug scree n, urine OXY negati ve Not Available [address], [address], 02/23/2025 15:35:24 02/24/20 25 02/23/2025 drug scree n, urine MDMA negati ve Not Available [address], [address], 02/23/2025 15:35:24 02/24/20 25 02/23/2025 drug scree n, urine DEANA negati ve Not Available [address], [address], 02/23/2025 15:35:24 02/24/20 25 02/23/2025 drug scree n, urine PCP negati ve Not Available [address], [address], 02/23/2025 15:35:24 02/24/20 25 02/23/2025 drug scree n, urine MET negati ve Not Available [address], [address], 02/23/2025 15:35:24 08/04/20 25 08/04/2025 drug scree n, urine AMP negati ve Not Available [address], [address], 08/04/2025 10:06:23 08/04/20 25 08/04/2025 drug scree n, urine BAR negati ve Not Available [address], [address], 08/04/2025 10:06:23 08/04/20 25 08/04/2025 drug scree n, urine BUP negati ve Not Available [address], [address], 08/04/2025 10:06:23 08/04/20 25 08/04/2025 drug scree n, urine BZO negati ve Not Available [address], [address], 08/04/2025 10:06:23 08/04/20 25 08/04/2025 drug scree n, urine DEANA negati ve Not Available [address], [address], 08/04/2025 10:06:23 08/04/20 25 08/04/2025 drug scree n, urine FTY negati ve Not Available [address], [address], 08/04/2025 10:06:23 08/04/20 25 08/04/2025 drug scree n, urine MDMA negati ve Not Available [address], [address], 08/04/2025 10:06:23 08/04/20 25 08/04/2025 drug scree n, urine MET negati ve Not Available [address], [address], 08/04/2025 10:06:23 08/04/20 25 08/04/2025 drug scree n, urine MOP negati ve Not Available [address], [address], 08/04/2025 10:06:23 08/04/20 25 08/04/2025 drug scree n, urine MTD negati ve Not Available [address], [address], 08/04/2025 10:06:23 08/04/20 25 08/04/2025 drug scree n, urine OXY negati ve Not Available [address], [address], 08/04/2025 10:06:23 08/04/20 25 08/04/2025 drug scree n, urine PCP negati ve Not Available [address], [address], 08/04/2025 10:06:23 08/04/20 25 08/04/2025 drug scree n, urine TCA negati ve Not Available [address], [address], 08/04/2025 10:06:23 08/04/20 25 08/04/2025 drug scree n, urine THC negati ve Not Available [address], [place], [address], 08/04/2025 10:06:23 Result Notes None recorded. Problems Name Problem SNOMED Code Status Onset Date Resolution Date Notes Provider Name and Address Organization Details Recorded Time Gestatio nal diabetes mellitus 06699634 Completed 03/23/2023 Removal Reason: had with her pregnanc ies Renae Toro null, [place] - [facility] 3 15:47:30 Prediabe michelle 938729832 Active Renae Toro null, [place] - [facility] 3 15:48:02 Vitamin D deficien cy 92129758 Active 2022 Eugnoah Webb, [employer] [address], [place], [address] , [place] - [facility] 3 08:33:30 Overweig ht 909579374 Active 2022 Vickie Stears null, [place] - [facility] 3 14:35:25 Notes:gestational diabetes Problem Notes None recorded. Procedures Surgical History Date Name Laterality Status Provider Name and Address Organization Details Recorded Time 07/16/20 Caesarean Section completed Renae Toro [place] - [facility] 03/23/2023 15:45:51 Cholecystectomy, laparoscopic completed Renae Toro [place] - [facility] 03/23/2023 15:50:19 Imaging Results None recorded. Procedure Notes None recorded. Medical Equipment None Reported. Allergies No known drug allergies Medications Name Sig Start Date Stop Date Status Note LastModified by Organization Details LastModified Time amoxicillin 500 mg capsule TAKE 1 CAPSULE BY MOUTH THREE TIMES DAILY UNTIL GONE 08/01 completed Not Available Not Available Not Available [...] completed Not Available Not Available Not Available Adipex-P 37.5 mg tablet Take 1 tablet every day by oral route for 30 days, for weight loss. 2024 active Not Available Not Available Not Avai lable phenazopyri dine 200 mg tablet TAKE ONE TABLET BY MOUTH TWICE DAILY FOR 3 DAYS 04/26 completed Not Available Not Available Not Available terconazole 0.8 % vaginal cream INSERT 1 APPLICATO RFUL VAGINALLY AT BEDTIME FOR 3 DAYS 03/23 completed Not Available Not Available Not Available ciprofloxac in 500 mg tablet TAKE 1 TABLET BY MOUTH TWICE DAILY FOR 7 DAYS 08/04 completed Not Available Not Available Not Available [...] monohydrate /macrocryst als 100 mg capsule TAKE 1 CAPSULE BY MOUTH EVERY 12 HOURS FOR 7 DAYS MUST ADMINISTE R WITH A MEAL/FOOD 08/01 completed Not Available Not Available Not Available [...] completed Not Available Not Available Not Available Wegovy 0.25 mg/0.5 mL subcutaneou s pen injector Inject 0.25 mg every week by subcutane ous route for 30 days. 2024 active Not Available Not Available Not Avai lable Ozempic 0.25 mg or 0.5 mg (2 mg/3 mL) subcutaneou s pen injector Inject 0.25 mg every day by subcutane ous route. 05/25 completed Not Available Not Available Not Available Zepbound 5 mg/0.5 mL subcutaneou s pen injector Inject 5 mg every week by subcutane ous route. 08/23 completed Not Available Not Available Not Available Zepbound 2.5 mg/0.5 mL subcutaneou s pen injector Inject 2.5 mg every week by subcutane ous route. 08/04 completed Not Available Not Available Not Available Vitals Date Recorded Body height Body mass index (BMI) Body weight Heart rate Oxygen saturation Oxygen saturation in Arterial blood by Pulse oximetry Respiratory rate Pain severity - 0-10 verbal numeric rating [Score] - Reported Systolic And Diastolic Provider Name and Address Organization Details Last Updated DateTime 5 172.72 cm 32.1 kg/m2 57312.9 9 g 77 /min 98 % 98 % 18 /min 0 108/62 mm[Hg] Renae [facility] 5 13:21:46 Date Recorded Body height Body mass index (BMI) Body weight Heart rate Respiratory rate Oxygen saturation Oxygen saturation in Arterial blood by Pulse oximetry Body temperature Systolic And Diastolic Provider Name and Address Organization Details Last Updated DateTime 5 172.72 cm 33 kg/m2 42664.5 4 g 100 /min 18 /min 97 % 97 % 97.9 [degF] 112/68 mm[Hg] [facility] 15:22[facility]38 Date Recorded Body height Body mass index (BMI) Body weight Body temperature Heart rate Oxygen saturation Oxygen saturation in Arterial blood by Pulse oximetry Respiratory rate Pain severity - 0-10 verbal numeric rating [Score] - Reported Systolic And Diastolic Provider Name and Address Organization Details Last Updated DateTime 5 172.72 cm 31.8 kg/m2 77088.8 1 g 97.2 [degF] 100 /min 96 % 96 % 18 /min 0 114/64 mm[Hg] [facility] 17:38:38 Date Recorded Body height Body mass index (BMI) Body weight Respiratory rate Oxygen saturation Oxygen saturation in Arterial blood by Pulse oximetry Heart rate Body temperature Systolic And Diastolic Provider Name and Address Organization Details Last Updated DateTime 5 172.72 cm 30.7 kg/m2 74777.6 6 g 18 /min 97 % 97 % 70 /min 98.1 [degF] 114/70 mm[Hg] Vickielyle Richardsleonardo [facility] 5 17:15:34 Date Recorded Body height Body mass index (BMI) Body weight Heart rate Body temperature Oxygen saturation Oxygen saturation in Arterial blood by Pulse oximetry Respiratory rate Pain severity - 0-10 verbal numeric rating [Score] - Reported Systolic And Diastolic Provider Name and Address Organization Details Last Updated DateTime 5 172.72 cm 31 kg/m2 03191.8 4 g 77 /min 98 [degF] 97 % 97 % 18 /min 0 108/64 mm[Hg] Renae Toro [place] - [facility] 5 10:05:45 Social History Question Answer Notes LastModified by [...] Or The Highest Degree You Have Received? XI05565-4 Information not available 03/23/2023 Have There Been Any Changes To Your Family Or Social Situation? No Information no t available 03/23/2023 Have You Recently Or Are You Planning To Travel To An Area With Zika Virus? No Information not available 03/23/2023 How Many Years Have You Used Illicit Or Recreational Drugs? 0 Information not available 03/23/2023 Do You Have A Medical Power Of Bending Shed Worker? No Information not available 03/23/2023 What Was [...] 03/23/2023 Are you able to care for yourself independently? 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 No Information not available 03/23/2023 Do you or have you ever used e-cigarettes or vape? Never used electronic cigarettes Information not available 03/23/2023 What is your exercise level? Occasional Information not available 03/23/2023 Mental Status Question Answer Note LastModified by Organizat ion Details LastModified Time Do you feel stressed (tense, restless, nervous, or anxious, or unable to sleep at night)? [id number] Information not available 03/23/2023 Do you have difficulty concentrating, remembering or making decisions? No Information no t available 03/23/2023 Family History Relationship Description Onset Age of this Age Resolved Age Notes LastModified by Organization Details LastModified Time Mother Obesity cbuckler Not available 03/23/2023 15:45:22 Maternal Grandmother Malignant neoplasm of breast cbuckler Not available 2022 15:45:22 Father Hypertensive disorder cbuckler Not available 2022 15:45:22 Father Obesity cbuckler Not available 03/23/2023 15:45:22 Father Diabetes mellitus cbuckler Not available 2022 15:45:22 Medical History Condition Response Depression Y Diabetes Y Obesity Y Gynecological History Statement/Question Response Abnormal Pap [...] Time pneumococcal polysaccharide PPV23 6 completed Renae Muna null, [place] - [facility] 03/26/2023 11:28:14 Tdap 8 completed Renae [place] - [facility] 03/26/2023 11:28:14 Tdap 0 completed Renae [place] - [facility] 03/26/2023 11:28:14 Hep B, adolescent or pediatric 8 completed Renae M[place] null[place] - [facility] 03/26/2023 11:28:14 Hep B, adolescent [...] Diagnosis SNOMED-CT Code Diagnosis ICD10 Code Diagnosis IMO Codes Diagnosis Note [id number] Chacho Webb [address] [address] 03/23/2023 15:07:55 03/23/2023 16:19:52 Body mass index 30+ - obesity 482910138 Z68.32 Obesity 025272267 E66.9 Prediabetes 645484889 R7 3.03 Fatigue 84278575 R53.83 Vitamin D deficiency 347 40679 E55.9 [id number] Chacho Webb [address] [address] 03/26/2023 11:14:25 03/26/2023 11:45:46 Body mass index 30+ - obesity 736014104 Z68.32 Pt compliant with plan of careKasper reviewed and appropriat emedicatio n compliance discussedL ast uds: 03/26/23Con trol substance agreement on file Obesity 781658091 E66.9 will try to see if melvin is covered on her insurance- if not will send adipex- discussed med and diet with pt Prediabetes 732311449 R7 3.03 Hyperlipidemia 18649478 E78.5 [id number] Chacho Webb [address] [address] 04/27/2023 10:53:07 04/27/2023 11:17:27 Body mass index 30+ - obesity 722085667 Z68.32 Pt compliant with plan of careKasper reviewed and appropriat emedicatio n compliance discussedL ast uds: 03/26/23Con trol substance agreement on filelow fat/carb/c alorie diet and exercise plan Obesity 341618707 E66.9 pt states she is on ozempic 0.5mg and keto diet [id number] Chacho Webb [address] [address] 05/25/2023 13:59:03 05/25/2023 14:41:01 Body mass index 30+ - obesity 875741732 Z68.32 Pt compliant with plan of careKasper reviewed and appropriat emedicatio n compliance discussedL ast uds: 03/26/23Con trol substance agreement on filelow fat/carb/c alorie diet and exercise plan [id number] Chacho Webb [address] [address] 06/22/2023 13:02:28 06/22/2023 13:58:23 Body mass index 30+ - obesity 046344608 Z68.32 Pt compliant with plan of careKasper reviewed and appropriat emedicatio n compliance discussedL ast uds: 03/26/23Con trol substance agreement on filelow fat/carb/c alorie diet and exercise plandrug holiday next month [id number] Chacho Jon [address] [address] 08/24/2023 10:01:17 08/24/2023 10:43:45 Body mass index 30+ - obesity 705533368 Z68.32 Pt compliant with plan of careKasper reviewed and appropriat emedicatio n compliance discussedL ast uds: 08/24/23Co ntrol substance agreement on filelow fat/carb/c alorie diet and exercise plandrug holiday next month Long-term drug therapy 511049111 Z79.901 [id number] Christinanoah Webb [address] [address] 09/21/2023 13:59:29 09/21/2023 15:13:40 Body mass index 25-29 - overweight 414924031 Z68.29 29.8contin ue diet and exercise plan Overweight 332287492 E66 .3 [id number] Chacho Grimmolivemagui [address] [address] 10/26/2023 10:12:08 10/26/2023 10:33:09 Body weight problem 976343915 R68.89 Prediabetes 009076776 R7 3.03 pt states she is continued with diet and exercisePt compliant with plan of careKasper reviewedme dication compliance discussedL ast uds:Control substance agreement on file Body mass index 30+ - obesity 141013549 Z68.30 Pt compliant with plan of careKasper reviewed and appropriat emedicatio n compliance discussedL ast uds: 08/24/23Co ntrol substance agreement on filelow fat/carb/c alorie diet and exercise plandrug holiday next month- will do one more month then her bmi she will not contiune. Obesity 418132397 E66.9 pt states she is on keto diet [id number] Chacho Webb [address] [place] [address] 12/21/2023 13:20:27 12/21/2023 14:05:38 Overweight 288843403 E66.3 Body mass index 25-29 - overweight 079854271 Z68.29 30.1contin ue diet and exercise planPt compliant with plan of careKasper reviewedme dication compliance discussedL ast uds:Control substance agreement on file [id number] Christinagiselelyle Grimmines [address] [address] 02/19/2024 14:43:42 02/19/2024 15:21:27 Overweight 635541224 E66.3 Body mass index 25-29 - overweight 774849920 Z68.29 31.5contin ue diet and exercise planPt compliant with plan of careKasper reviewedme dication compliance discussedL ast uds:Control substance agreement on file Body mass index 30+ - obesity 721043234 Z68.31 Pt compliant with plan of careKasper reviewed and appropriat emedicatio n compliance discussedL ast uds: 08/24/23Co ntrol substance agreement on filelow fat/carb/c alorie diet and exercise plan Obesity 291675034 E66.9 pt states she is on keto diet [id number] Christinanoah ines [address] [address] 04/26/2024 17:58:02 04/26/2024 18:49:40 Overweight 244067260 E66.3 Discussed healthy eating and portioning foods. Body mass index 25-29 - overweight 077061456 Z68.29 31.5contin ue diet and exercise planPt compliant with plan of careKasper reviewedme dication compliance discussedL ast uds:Control substance agreement on file [id number] Chacho Webb [address] [address] 06/07/2024 18:01:27 06/07/2024 18:53:07 Body mass index 25-29 - overweight 793846618 Z68.29 32.9contin ue diet and exercise planPt compliant with plan of careKasper reviewedme dication compliance discussedL ast uds: 4Control substance agreement on file [id number] Chacho Grimmolivemagui [address] [address] 06/28/2024 17:24:49 06/28/2024 17:58:23 Screening for malignant neoplasm of cervix 709002222 Z12.4 Patient declined at this time. Vitamin D deficiency 347 69840 E55.9 04/03 vit d was 19.6 Hypercholesterolemia 136 65218 E78.00 04/03 LDL were 110 (high) and HDL was 37 (low) Influenza vaccination declined 289502089 Z28.21 patient declined flu vaccine at this time Body mass index 30+ - obesity 442197033 Z68.31 Obesity 018077296 E66.9 [id number] Chacho Grimmines [address] [address] 07/26/2024 17:20:45 07/26/2024 17:55:19 Body mass index 30+ - obesity 120361599 Z68.31 Pt compliant with plan of careKasper reviewed #[id number] medication compliance discussedL ast uds: 4Control substance agreement on file [id number] Chacho Webb [address] [address] 08/23/2024 17:37:01 08/23/2024 18:08:04 Body mass index 25-29 - overweight 049174308 Z68.29 32.9contin ue diet and exercise planPt compliant with plan of careKasper reviewed #[id number] medication compliance discussedL ast uds: 4Control substance agreement on filemed sent late was waiting on von it was manual processing [id number] Leonelalyle ines [address] [address] 09/12/2024 09:54:23 09/12/2024 10:36:58 Overweight 309927392 E66.3 Discussed healthy eating and portioning foods. General ex amination of patient 047019923 Z00.00 Screening for cardiovascular system disease 286859439 Z13.6 Endocrine/ metabolic screening 012217219 Z13.228 Screening mammography 24 211074 Z12.31 Exercises education, guidance, and counseling 145655480 Z71.82 The patient was advised to continue a healthy diet and exercise regularly. Dietary ma nagement surveillance 666333034 Z71.3 Middle ear effusion 1004 598644 H74.8X9 Body mass index 25-29 - overweight 937680238 Z68.29 30.9contin ue diet and exercise planPt compliant with [facility] [id number] edication compliance discussedL ast uds: 4Control substance agreement on filewill prescribe med and send with hold - [id number] Chacho Webb [address] [address] 10/25/2024 17:10:46 10/25/2024 17:41:57 Obesity 803144811 E66.9 continue low fat/carb/c alorie diet and exercisedr holiday this month [id number] [facility] [address] [address] 11/25/2024 16:00:27 11/25/2024 16:30:20 Body mass index 25-29 - overweight 678922291 Z68.29 31.5contin ue diet and exercise planPt compliant with plan of Zhao reviewed -manual process#24 [id number] ication compliance discussedL ast uds: 4Control substance agreement on file,adipe x agreement on filediscus sed diet and exercise [id number] Chacho Webb [address] [address] 12/20/2024 17:43:58 12/20/2024 18:07:05 Obesity 945693036 E66.9 continue low fat/carb/c alorie diet and exerciseka sper#83247 2809 Body mass index 25-29 - overweight 799087850 Z68.29 31.3contin ue diet and exercise planPt compliant with plan of caremedica tion compliance discussedC ontrol substance agreement on file,adipe x agreement on filediscus sed diet and exercise [id number] Chacho Jon [address] [address] 02/07/2025 12:51:52 02/07/2025 14:00:31 Body mass index 25-29 - overweight 727755297 Z68.29 31.3contin ue diet and exercise planPt compliant with plan of caremedica tion compliance discussedC ontrol substance agreement on file,adipe x agreement on filediscus sed diet and exercisere turn after 02/24 since wt gain. [id number] Chacho Grimmolivemagui[address] [address] 02/23/2025 15:05:20 02/23/2025 15:38:28 Overweight 474859423 E66.3 Discussed healthy eating and portioning foods with diet and exercise Long-term current use of drug therapy 377307372 Z79.899 04212494 Body mass index 25-29 - overweight 811248508 Z68.29 33continue diet and exercise planPt compliant with plan of caremedica tion compliance discussedC ontrol substance agreement on file,adipe x agreement on filediscus sed diet and exercise [id number] Chacho Grimm[address]magui[address] [address] 03/28/2025 17:25:55 03/28/2025 18:02:06 Overweight 225203235 E66.3 Discussed healthy eating and portioning foods with diet and exercise Obesity 980518067 E66.9 continue low fat/carb/c alorie diet and exerciseka sper # 944473639 Body mass index 25-29 - overweight 714539137 Z68.29 31.8contin ue diet and exercise planPt compliant with plan of caremedica tion compliance discussedC ontrol substance agreement on file,adipe x agreement on filediscus sed diet and exercise Body mass index 30+ - obesity 775377604 Z68.31 39716275 31.8contin ue diet and exercise planPt compliant with plan of caremedica tion compliance discussedC ontrol substance agreement on file,adipe x agreement on filediscus sed diet and exercise [id number] [facility] hospit[facility]le Webb[address] [address] 05/23/2025 16:59:29 05/23/2025 17:32:52 Body mass index 25-29 - overweight 052820614 Z68.29 30.7contin ue diet and exercise planPt compliant with plan of caremedica tion compliance discussedC ontrol substance agreement on file,adipe x agreement on filediscus sed diet and exercise [id number] [facility] [address] [address] 08/04/2025 09:44:48 08/04/2025 10:17:56 Body mass index 30+ - obesity 406828727 Z68.31 755801 31.continu e diet and exercise planPt compliant with plan of caremedica tion compliance discussedC ontrol substance agreement on file,adipe x agreement on filediscus sed diet and exerciseco ntinue low fat/carb 40/calorie 1800 diet and exercise= 3 days a week for 30 mins and advance as tolerated Long-term current use of drug therapy 309803502 Z79.899 [id number] Health Concerns Section Related Observation LastModified by Organization Detai ls LastModified Time None Recorded Concern Status LastModified by Organization Details LastModified Time None Recorded Advance Directives Directive N: Payers Insurance Date Sequence Insurance Name Policy Number Policy Bingham Covered Member ID Bingham Member ID Guarantor Name 03/23/2023 2 [place] [id number] Emely Kaylen [id number] [place] Feeback 05/23/2025 1 [employer] [facility] [place] [facility]ee B [place] [id number] [place] F[place] 08/01/2025 [place] Norm[place]ee B [place] [id number] [place] Fee[place] 08/01/2025 1 UMR [id number] Dukeee B Feeback [id number] [place] Fee[place] Notes Date Note Type Note Provider Name and Address Organization Details Recorded Time 02/07/2025 text/html 29 yr old female presents for a weight loss follow up. missed appointment 2 weeks ago. up 6 lbs Christinagiselelyle GERARDO Webb [address], [place], [address], [place] [facility] 02/07/2025 13:58:14 02/23/2025 text/html 29 year old female who presents to the office today for a follow up onweight loss-at today's appt she weighs 217 lbs, last month was her month off adipex and she states she did not do well on her dietat her last appt on 02-08-24 she weighed 211 lbs Christinanoah Webb APRN [address], [place], [address], [place] [facility] 02/23/2025 15:50:33 03/28/2025 text/html 29 yr old female presents for a weight loss follow up. down 8 lbs pt states doing well on meds with diet and exercise Christinanoah Webb APRN [address], [place], [address], [place] [facility] 03/28/2025 17:59:37 05/23/2025 text/html 30 year old female who presents to the office today for a follow up onweight loss-- today she weighs 202 lbsat her last appt on 03-28-2025 she weighed 209 lbspt has new insurance and would like to discuss possibly starting zepbound with adipex Christinanoah Webb APRN [address], [place], [address], [place] [facility] 05/23/2025 18:28:37 08/04/2025 text/html 30 yr old female presents for a follow up on weight loss. She would like to try wegovy and restart adipex. pt states she done well on adipex in the past. pt states she has been dieting and exercising but has not been successful with losing wt Chacho Webb APRN [address], [place], [address], [place] [facility] 08/04/2025 10:21:52 OBGyn Episode No OBEpisode recorded.
--- OUTSIDE RECORDS SUMMARY | 2025-08-04 11:09 | XMS_ITS | Continuity of Care Document ---
Author Organization [facility] Address [address] [place] [address] Assessment No assessment recorded. Plan of Treatment Reminders Order Date Submit Date Provider Last Modified By Organization Details Last Modified Time Details Appointments Establish ed Patient 2024 10:40A M Chacho Webb APRN Not available Not available Not available Follow Up 2024 10:40A M Chacho Webb APRN Not available Not available Not available Lab drug screen, urine 2024 [facility], [address] [place] [address], [place], [address], 08/04/2025 10:21:20 Referral None recorded. Procedures None recorded. Surgeries None recorded. Imaging None recorded. Medication Orders Adipex-P 37.5 mg tablet 2024 [facility], [address] [place] [address] [address] [place], [id number], 08/04/2025 10:27:52 Wegovy 0.25 mg/0.5 mL subcutane ous pen injector 2024 [facility], [address] [place] [address] [address] [place], [id number], 08/04/2025 10:33:49 Patient TargetsNo targets recorded. Patient Instructions Encounter Date Encounter Id Patient Instructions Last Modified By Organization Details Last Modified Time 08/04/2025 [id number] learning about healthy weight efryman Not available 08/04/2025 10:21:20 body mass index: care instructions efryman Not available 08/04/2025 10:21:20 Reason for Referral None Reported. Results Created Date Observation Date Name Description Value Unit Range Abnormal Flag Note LastModifiedBy Organization Detail LastModifiedTime 08/04/2008/04/2025 drug scree n, urine AMP negati ve Not Available [address], [address], 08/04/2025 10:06:23 08/04/2008/04/2025 drug scree n, urine BAR negati ve Not Available [address], [address], 08/04/2025 10:06:23 08/04/2008/04/2025 drug scree n, urine BUP negati ve Not Available [address], [address], 08/04/2025 10:06:23 08/04/2008/04/2025 drug scree n, urine BZO negati ve Not Available [address], [address], 08/04/2025 10:06:23 08/04/20 25 08/04/2025 drug scree n, urine DEANA negati ve Not Available [address], [address], 08/04/2025 10:06:23 08/04/2008/04/2025 drug scree n, urine FTY negati ve Not Available [address], [address], 08/04/2025 10:06:23 08/04/20 25 08/04/2025 drug scree n, urine MDMA negati ve Not Available [address], [address], 08/04/2025 10:06:23 08/04/20 25 08/04/2025 drug scree n, urine MET negati ve Not Available [address], [address], 08/04/2025 10:06:23 08/04/20 25 08/04/2025 drug scree n, urine MOP negati ve Not Available [address], [address], 08/04/2025 10:06:23 08/04/20 25 08/04/2025 drug scree n, urine MTD negati ve Not Available [address], [address], 08/04/2025 10:06:23 08/04/20 25 08/04/2025 drug scree n, urine OXY negati ve Not Available [address], [address], 08/04/2025 10:06:23 08/04/20 25 08/04/2025 drug scree n, urine PCP negati ve Not Available [address], [address], 08/04/2025 10:06:23 08/04/20 25 08/04/2025 drug scree n, urine TCA negati ve Not Available [address], [address], 08/04/2025 10:06:23 08/04/20 25 08/04/2025 drug scree n, urine THC negati ve Not Available [address], [place], [address], 08/04/2025 10:06:23 Result Notes None recorded. Problems Name Problem SNOMED Code Status Onset Date Resolution Date Notes Provider Name and Address Organization Details Recorded Time Gestatio nal diabetes mellitus 45886201 Completed 03/23/2023 Removal Reason: had with her pregnanc ies Renae Toro null, [place] - [facility] 3 15:47:30 Prediabe michelle 179293065 Active Renae Toro null, [place] - [facility] 3 15:48:02 Vitamin D deficien cy 87953220 Active 2022 Eugnoah Webb, SWING SAW OPERATOR [address], [place], [address] , [place] - [facility] 3 08:33:30 Overweig ht 786517416 Active 2022 Vickie Stears null, [place] - [facility] 3 14:35:25 Notes:gestational diabetes Problem Notes None recorded. Procedures Surgical History Date Name Laterality Status Provider Name and Address Organization Details Recorded Time 07/16/20 Caesarean Section completed Renae Toro [place] - [facility] 03/23/2023 15:45:51 Cholecystectomy, laparoscopic completed Renae Toro [place] - [facility] 03/23/2023 15:50:19 Imaging Results None [...] Updated DateTime 5 172.72 cm 31 kg/m2 59916.8 4 g 77 /min 98 [degF] 97 % 97 % 18 /min 0 108/64 mm[Hg] Renae Toro [place] - [facility] 5 10:05:45 Social History Question Answer Notes LastModified by Fixetudeizat ion Details LastModified Time Tobacco Smoking Status [...] Or The Highest Degree You Have Received? [id number] Information not available 03/23/2023 Have There Been Any Changes To Your Family Or Social Situation? No Information no t available 03/23/2023 Have You Recently Or Are You Planning To Travel To An Area With Zika Virus? No Information not available 03/23/2023 How Many Years Have You Used Illicit Or Recreational Drugs? 0 Information not available 03/23/2023 Do You Have A Medical Power Of Precision Lens Technician? 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 [id number] Information not available 03/23/2023 Do you have [...] 15:45:22 Father Diabetes mellitus cbuckler Not available 06/12/ 2023 15:45:22 Medical History Condition Response Diabetes Y [...] polysaccharide PPV23 6 completed Renae Toro null, [place] - [facility] 03/26/2023 11:28:14 Tdap 8 completed Renae Toro [place], [place] - [facility] 03/26/2023 11:28:14 Tdap 0 completed Renae Tor[place] - [facility] 03/26/2023 11:28:14 Hep B, adolescent or pediatric 8 completed Renae [place] [facility] 03/26/2023 11:28:14 Hep B, adolescent or pediatric 7 completed Renae [place] [facility] 03/26/2023 11:28:15 Influenza, split virus, quadrivalent, PF 8 completed Renae [place] - [facility] 03/26/2023 11:28:15 Influenza, split virus, quadrivalent, PF 7 completed Renae Tor[place] - [facility] 03/26/2023 11:28:15 Past Encounters Encounter ID Performer Location Encounter Start Date Encounter Closed Date Diagnosis/Indication Diagnosis SNOMED-CT Code Diagnosis ICD10 Code Diagnosis IMO Codes Diagnosis Note [id number] Chacho Webb APRN [address] [address] 08/04/2025 09:44:48 08/04/2025 10:17:56 Body mass index 30+ - obesity 908746475 Z68.31 488429 31.continu e diet and exercise planPt compliant with plan of caremedica tion compliance discussedC ontrol substance agreement on file,adipe x agreement on filediscus sed diet and exerciseco ntinue low fat/carb 40/calorie 1800 diet and exercise= 3 days a week for 30 mins and advance as tolerated Long-term current use of drug therapy 061273079 Z79.899 [id number] Health Concerns Section Related Observation LastModified by Organization Detai ls LastModified Time None Recorded Concern Status LastModified by Organization Details LastModified Time None Recorded Payers Encounter Date Sequence Insurance Name Policy Number Policy Bingham Covered Member ID Bingham Member ID Guarantor Name 08/04/2025 1 [facility] [id number] Normandee B Feeback [id number] Normandee [place] Feeback Notes Date Note Type Note Provider Name and Address Organization Details Recorded Time 08/04/2025 text/html 30 yr old female presents for a follow up on weight loss. She would like to try wegovy and restart adipex. pt states she done well on adipex in the past. pt states she has been dieting and exercising but has not been successful with losing wt Chacho Webb, SWING SAW OPERATOR [address], [place], [address], [place] - [facility] 08/04/2025 10:21:52 OBGyn Episode No OBEpisode recorded.
--- OUTSIDE RECORDS SUMMARY | 2025-08-04 11:09 | XMS_ITS | Clinical Summary ---
Author Organization [facility] Address [address] [place] [address] Care Team Providers Care Tie Tape Machine Operator Name Role Phone Ac Wisdom MD Primary Care Provider [phone] Allergies No known active allergies Medications Vit-Fe [...] age to complete this topic Insurance [facility] [employer] BLUE SHIELD PPO Care Teams Tie Tape Machine Operator Relationship Specialty Start Date End Date Ac Wisdom MD [address] [place] [address] PCP - General Internal Medicine 03/17/22
== END 2025-08-04 23:59 | disposition home or self-care (01) ==
LOC: LAB 10:55
PROVIDERS: PCP Nurse Practitioner Family; Visit Provider Obstetrics & Gynecology
DX: Z34.90 Encounter for supervision of normal pregnancy, unspecified, unspecified trimester (principal); R10.10 Upper abdominal pain, unspecified
CPT/HCPCS: 36415; 84702

== ENCOUNTER 2025-10-06 19:29 | Emergency (ER) | payer OTHER, SELFPAY ==
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
--- OUTSIDE RECORDS SUMMARY | 2025-10-06 19:37 | XMS_ITS | Data Portability ---
Author Organization [facility] Address [address] [facility] [place] [address] Assessment Encounter Date Assessment Date Assessment LastModified [...] Modified Time Details Appointments Establish ed Patient 20 2025 09:20A M Chacho Webb APRN Not available Not available Not available Lab drug screen, urine 2024 025 [facility], [address] [place] [address], [address], 08/04/2025 10:21:20 drug screen, urine 2024 025 [facility], [address] [place] [address], [address], 02/23/2025 15:49:55 Referral None recorded. Procedures None recorded. Surgeries None recorded. Imaging None recorded. Medication Orders Adipex-P 37.5 mg tablet 2024 025 [facility], [address] [place] [address] [address] [place] [place], [id number], 08/04/2025 11:44:08 Wegovy 0.25 mg/0.5 mL subcutane ous pen injector 2024 025 [facility], [address] [place] [address] [address] [place], [id number], 08/23/2025 10:55:54 phentermi ne 37.5 mg tablet 2024 [facility], [address] [place], [address], 05/23/2025 18:28:31 Zepbound 2.5 mg/0.5 mL subcutane ous pen injector 2024 025 [facility], [address] [place], [place] [address], [address], 08/04/2025 10:02:46 phentermi ne 37.5 mg tablet 2024 025 [facility] [place], [address], 03/28/2025 17:48:28 phentermi ne 37.5 mg tablet 2024 025 [facility], [address] [place], [address], 02/23/2025 15:50:04 Patient TargetsNo targets recorded. Patient Instructions Encounter Date Encounter Id Patient Instructions Last Modified By Organization Details Last Modified Time 02/07/2025 [id number] Treament Plan: Patient will start medication as directed. Patient will continue exercise, watch calorie intake, and follow up for weight check in 1 month. cbuckler Not available 02/07/2025 13:05:00 03/28/2025 [id number] learning about healthy weight efryman Not available 03/28/2025 17:48:21 body mass index: care instructions efryman Not available 03/28/2025 17:48:21 Treament Plan: Patient will start medication as directed. Patient will continue exercise, watch calorie intake, and follow up for weight check in 1 month. cbuckler Not available 03/28/2025 17:31:55 05/23/2025 [id number] Treament Plan: Patient will start medication as directed. Patient will continue exercise, watch calorie intake, and follow up for weight check in 1 month. bstears Not available 05/23/2025 17:12:52 08/04/2025 [id number] learning about healthy weight efryman Not available 08/04/2025 10:21:20 body mass index: care instructions efryman Not available 08/04/2025 10:21:20 Reason for Referral None Reported. Results Created Date Observation Date Name Description Value Unit Range Abnormal Flag Note LastModifiedBy Organization Detail LastModifiedTime 02/24/2002/23/2025 drug scree n, urine THC negati ve Not Available [address], [address], 02/23/2025 15:35:24 02/24/20 25 02/23/2025 drug scree n, urine TCA negati ve Not Available [address], [address], 02/23/2025 15:35:24 02/24/20 25 02/23/2025 drug scree n, urine BAR negati ve Not Available [address], [address], 02/23/2025 15:35:24 02/24/20 25 02/23/2025 drug scree n, urine BZO negati ve Not Available [address], [address], 02/23/2025 15:35:24 02/24/20 25 02/23/2025 drug scree n, urine MTD negati ve Not Available [address], [address], 02/23/2025 15:35:24 02/24/20 25 02/23/2025 drug scree n, urine AMP negati ve Not Available [address], [address], 02/23/2025 15:35:24 02/24/20 25 02/23/2025 drug scree n, urine MOP negati ve Not Available [address], [address], 02/23/2025 15:35:24 02/24/20 25 02/23/2025 drug scree n, urine OXY negati ve Not Available [address], [address], 02/23/2025 15:35:24 02/24/20 25 02/23/2025 drug scree n, urine MDMA negati ve Not Available [address], [address], 02/23/2025 15:35:24 02/24/20 25 02/23/2025 drug scree n, urine DEANA negati ve Not Available [address], [address], 02/23/2025 15:35:24 02/24/20 25 02/23/2025 drug scree n, urine PCP negati ve Not Available [address], [address], 02/23/2025 15:35:24 02/24/20 25 02/23/2025 drug scree n, urine MET negati ve Not Available [address], [address], 02/23/2025 15:35:24 08/04/20 25 08/04/2025 drug scree n, urine AMP negati ve Not Available [address], [address], 08/04/2025 10:06:23 08/04/2008/04/2025 drug scree n, urine BAR negati ve Not Available [address], [address], 08/04/2025 10:06:23 08/04/2008/04/2025 drug scree n, urine BUP negati ve Not Available [address], [address], 08/04/2025 10:06:23 08/04/20 25 08/04/2025 drug scree n, urine BZO negati ve Not Available [address], [address], 08/04/2025 10:06:23 08/04/20 25 08/04/2025 drug scree n, urine DEANA negati ve Not Available [address], [address], 08/04/2025 10:06:23 08/04/20 25 08/04/2025 drug scree n, urine FTY negati ve Not Available [address], [address], 08/04/2025 10:06:23 08/04/20 25 08/04/2025 drug scree n, urine MDMA negati ve Not Available [address], [address], 08/04/2025 10:06:23 08/04/2008/04/2025 drug scree n, urine MET negati ve Not Available [address], [address], 08/04/2025 10:06:23 08/04/2008/04/2025 drug scree n, urine MOP negati ve Not Available [address], [address], 08/04/2025 10:06:23 08/04/2008/04/2025 drug scree n, urine MTD negati ve Not Available [address], [address], 08/04/2025 10:06:23 08/04/2008/04/2025 drug scree n, urine OXY negati ve Not Available [address], [address], 08/04/2025 10:06:23 08/04/2008/04/2025 drug scree n, urine PCP negati ve Not Available [address], [address], 08/04/2025 10:06:23 08/04/2008/04/2025 drug scree n, urine TCA negati ve Not Available [address], [address], 08/04/2025 10:06:23 08/04/2008/04/2025 drug scree n, urine THC negati ve Not Available [address], [address], 08/04/2025 10:06:23 Result Notes None recorded. Problems Name Problem SNOMED Code Status Onset Date Resolution Date Notes Provider Name and Address Organization Details Recorded Time Gestatio nal diabetes mellitus 32698842 Completed 03/23/2023 Removal Reason: had with her pregnanc ies Renae Toro null, [place] - [facility] 15:47:30 Prediabe michelle 839791004 Active Renae Toro null, [place] - [facility] 15:48:02 Vitamin D deficien cy 11575802 Active 2022 Eugnoah Webb, [employer] [address], [place], [address] , [place] - [facility] 3 08:33:30 Overweig ht 476796986 Active 2022 Vickie Stears null, [place] - [...] Not Available phentermine 37.5 mg tablet TAKE ONE TABLET BY MOUTH EVERY DAY FOR weight loss active Not Available Not Available No t Available ciprofloxac in 500 mg tablet TAKE [...] 0.25 mg/0.5 mL subcutaneou s pen injector INJECT THE CONTENTS OF 1 PEN (0.25 MG /0.5ML) SUBCUTANE OUSLY ONCE A WEEK active Not Available Not Available No t Available Ozempic 0.25 mg or 0.5 mg [...] (BMI) Body weight Heart rate Oxygen saturation Respiratory rate Pain severity - 0-10 verbal numeric rating [Score] - Reported Systolic And Diastolic Provider Name and Address Organization Details Last Updated DateTime 5 172.72 cm 32.1 kg/m2 35455.9 9 g 77 /min 98 % 18 /min 0 108/62 mm[Hg] Renae Muna [place] - [facility] 13:21:46 Date Recorded Body height Body mass index (BMI) Body weight Heart rate Respiratory rate Oxygen saturation Body temperature Systolic And Diastolic Provider Name and Address Organization Details Last Updated DateTime 5 172.72 cm 33 kg/m2 93269.5 4 g 100 /min 18 /min 97 % 97.9 [degF] 112/68 mm[Hg] Vickie Richardss [place] - [facility] 5 15:22:38 Date Recorded Body height Body mass index (BMI) Body weight Body temperature Heart rate Oxygen saturation Respiratory rate Pain severity - 0-10 verbal numeric rating [Score] - Reported Systolic And Diastolic Provider Name and Address Organization Details Last Updated DateTime 5 172.72 cm 31.8 kg/m2 12723.8 1 g 97.2 [degF] 100 /min 96 % 18 /min 0 114/64 mm[Hg] Renae Toro [place] - [facility] 5 17:38:38 Date Recorded Body height Body mass index (BMI) Body weight Respiratory rate Oxygen saturation Heart rate Body temperature Systolic And Diastolic Provider Name and Address Organization Details Last Updated DateTime 5 172.72 cm 30.7 kg/m2 67377.6 6 g 18 /min 97 % 70 /min 98.1 [degF] 114/70 mm[Hg] Vickie Richardss [place] - [facility] 5 17:15:34 Date Recorded Body height Body mass index (BMI) Body weight Heart rate Body temperature Oxygen saturation Respiratory rate Pain severity - 0-10 verbal numeric rating [Score] - Reported Systolic And Diastolic Provider Name and Address Organization Details Last Updated DateTime 5 172.72 cm 31 kg/m2 15773.8 4 g 77 /min 98 [degF] 97 % 18 /min 0 108/64 mm[Hg] Renae Turnerler [place] - [facility] 5 10:05:45 Social History [...] Or The Highest Degree You Have Received? [id number] Information not available 03/23/2023 Have There Been Any Changes To Your Family Or Social Situation? No Information no t available 03/23/2023 Have You Recently Or Are You Planning To Travel To An Area With Zika Virus? No Information not available 03/23/2023 How Many Years Have You Used Illicit Or Recreational Drugs? 0 Information not available 03/23/2023 Do You Have A Medical Power Of Community Outreach Specialist? 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 [id number] Information not available 03/23/2023 Do you have [...] polysaccharide PPV23 6 completed Renae Muna null, [place] - [facility] 03/26/2023 11:28:14 Tdap 8 completed Renae Toro [place] - [facility] 03/26/2023 11:28:14 Tdap 0 completed Renae Turner[place], [place] - [facility] 03/26/2023 11:28:14 Hep B, adolescent or pediatric 8 completed Ernae Muna null, [place] - [facility] 03/26/2023 11:28:14 Hep B, adolescent or pediatric 7 completed Renae M[place] - [facility] 03/26/2023 11:28:15 Influenza, split virus, quadrivalent, PF 8 completed Renae Turner[place] - [facility] 03/26/2023 11:28:15 Influenza, split virus, quadrivalent, PF 7 completed Renae Turner[place] - [facility] 03/26/2023 11:28:15 Past Encounters Encounter ID Performer Location Encounter Start Date Encounter Closed Date Diagnosis/Indication Diagnosis SNOMED-CT Code Diagnosis ICD10 Code Diagnosis IMO Codes Diagnosis Note [id number] Chacho Webb [address] [address] 03/23/2023 15:07:55 03/23/2023 16:19:52 Body mass index 30+ - obesity 116282480 Z68.32 Obesity 873790443 E66.9 Prediabetes 703959653 R7 3.03 Fatigue 03298055 R53.83 Vitamin D deficiency 347 12551 E55.9 [id number] Chacho Webb [employer] [address] [address] 03/26/2023 11:14:25 03/26/2023 11:45:46 Body mass index 30+ - obesity 294614812 Z68.32 Pt compliant with plan of careAniket reviewed and appropriat emedicatio n compliance discussedL ast uds: 03/26/23Con trol substance agreement on file Obesity 836971081 E66.9 will try to see if wegovy is covered on her insurance- if not will send adipex- discussed med and diet with pt Prediabetes 694120372 R7 3.03 Hyperlipidemia 60218129 E78.5 [id number] Chacho Webb [address] [address] 04/27/2023 10:53:07 04/27/2023 11:17:27 Body mass index 30+ - obesity 556193180 Z68.32 Pt compliant with plan of careKasper reviewed and appropriat emedicatio n compliance discussedL ast uds: 03/26/23Con trol substance agreement on filelow fat/carb/c alorie diet and exercise plan Obesity 638789889 E66.9 pt states she is on ozempic 0.5mg and keto diet [id number] Chacho Grimmines [address] [address] 05/25/2023 13:59:03 05/25/2023 14:41:01 Body mass index 30+ - obesity 184357122 Z68.32 Pt compliant with plan of careKasper reviewed and appropriat emedicatio n compliance discussedL ast uds: 03/26/23Con trol substance agreement on filelow fat/carb/c alorie diet and exercise plan [id number] Chacho Grimmines [address] [address] 06/22/2023 13:02:28 06/22/2023 13:58:23 Body mass index 30+ - obesity 773054036 Z68.32 Pt compliant with plan of careKasper reviewed and appropriat emedicatio n compliance discussedL ast uds: 03/26/23Con trol substance agreement on filelow fat/carb/c alorie diet and exercise plan next [id number] Chacho Webb [address] [address] 08/24/2023 10:01:17 08/24/2023 10:43:45 Body mass index 30+ - obesity 799936495 Z68.32 Pt compliant with plan of careKasper reviewed and appropriat emedicatio n compliance discussedL ast uds: 08/24/23Co ntrol substance agreement on filelow fat/carb/c alorie diet and exercise plandrug holiday next month Long-term drug therapy 268503805 Z79.678 [id number] Chacho Webb [address] [address] 09/21/2023 13:59:29 09/21/2023 15:13:40 Body mass index 25-29 - overweight 947562273 Z68.29 29.8contin ue diet and exercise plan Overweight 530157235 E66 .3 [id number] Chacho Webb [address] [address] 10/26/2023 10:12:08 10/26/2023 10:33:09 Body weight problem 275658724 R68.89 Prediabetes 338535831 R7 3.03 pt states she is continued with diet and exercisePt compliant with plan of careKasper reviewedme dication compliance discussedL ast uds:Control substance agreement on file Body mass index 30+ - obesity 716284443 Z68.30 Pt compliant with plan of careKasper reviewed and appropriat emedicatio n compliance discussedL ast uds: 08/24/23Co ntrol substance agreement on filelow fat/carb/c alorie diet and exercise plandrug holiday next month- will do one more month then her bmi she will not contiune. Obesity 316244554 E66.9 pt states she is on keto diet [id number] Chacho Webb [address] [address] 12/21/2023 13:20:27 12/21/2023 14:05:38 Overweight 436319729 E66.3 Body mass index 25-29 - overweight 833498287 Z68.29 30.1contin ue diet and exercise planPt compliant with plan of careKasper reviewedme dication compliance discussedL ast uds:Control substance agreement on file [id number] Chacho Webb [address] [address] 02/19/2024 14:43:42 02/19/2024 15:21:27 Overweight 887361016 E66.3 Body mass index 25-29 - overweight 664886587 Z68.29 31.5contin ue diet and exercise planPt compliant with plan of careKasper reviewedme dication compliance discussedL ast uds:Control substance agreement on file Body mass index 30+ - obesity 818479986 Z68.31 Pt compliant with plan of careKasper reviewed and appropriat emedicatio n compliance discussedL ast uds: 08/24/23Co ntrol substance agreement on filelow fat/carb/c alorie diet and exercise plan Obesity 716049078 E66.9 pt states she is on keto diet [id number] Christinanoah Webb [address] [address] 04/26/2024 17:58:02 04/26/2024 18:49:40 Overweight 056728671 E66.3 Discussed healthy eating and portioning foods. Body mass index 25-29 - overweight 668325917 Z68.29 31.5contin ue diet and exercise planPt compliant with plan of careKasper reviewedme dication compliance discussedL ast uds:Control substance agreement on file [id number] Christinagiselelyle Grimmines [address] [address] 06/07/2024 18:01:27 06/07/2024 18:53:07 Body mass index 25-29 - overweight 415644959 Z68.29 32.9contin ue diet and exercise planPt compliant with plan of careKasper reviewedme dication compliance discussedL ast uds: 4Control substance agreement on file [id number] Christinagiselelyle Grimmines [address] [address] 06/28/2024 17:24:49 06/28/2024 17:58:23 Screening for malignant neoplasm of cervix 578434146 Z12.4 Patient declined at this time. Vitamin D deficiency 347 06667 E55.9 04/03 vit d was 19.6 Hypercholesterolemia 136 72555 E78.00 04/03 LDL were 110 (high) and HDL was 37 (low) Influenza vaccination declined 449945337 Z28.21 patient declined flu vaccine at this time Body mass index 30+ - obesity 122746097 Z68.31 Obesity 642077361 E66.9 [id number] Chacho Webb[address] [address] 07/26/2024 17:20:45 07/26/2024 17:55:19 Body mass index 30+ - obesity 983675497 Z68.31 Pt compliant with plan of caresp reviewed #[id number] medication compliance discussedL ast uds: 4Control substance agreement on file [id number] Chacho Webb [address] [address] 08/23/2024 17:37:01 08/23/2024 18:08:04 Body mass index 25-29 - overweight 446031031 Z68.29 32.9contin ue diet and exercise planPt compliant with plan of caresper reviewed #059606208 medication compliance discussedL ast uds: 4Control substance agreement on filemed sent late was waiting on aniket it was manual processing [id number] Christinanoah Webb[address] [address] 09/12/2024 09:54:23 09/12/2024 10:36:58 Overweight 021970483 E66.3 Discussed healthy eating and portioning foods. General ex amination of patient 869818032 Z00.00 Screening for cardiovascular system disease 145594856 Z13.6 Endocrine/ metabolic screening 554444710 Z13.228 Screening mammography 24 234587 Z12.31 Exercises education, guidance, and counseling 557392397 Z71.82 The patient was advised to continue a healthy diet and exercise regularly. Dietary ma nagement surveillance 242433109 Z71.3 Middle ear effusion 1004 924128 H74.8X9 Body mass index 25-29 - overweight 786298032 Z68.29 30.9contin ue diet and exercise planPt compliant with plan of careKasper reviewed 117735036r edication compliance discussedL ast uds: 4Control substance agreement on filewill prescribe med and send with hold - [id number] Chahco Grimmines [address] [address] 10/25/2024 17:10:46 10/25/2024 17:41:57 Obesity 785557365 E66.9 continue low fat/carb/c alorie diet and exercisedr this month [id number] Christinanoah ines [address] [address] 11/25/2024 16:00:27 11/25/2024 16:30:20 Body mass index 25-29 - overweight 767525942 Z68.29 31.5contin ue diet and exercise planPt compliant with plan of careKasper reviewed -manual process#24 [id number] ication compliance discussedL ast uds: 4Control substance agreement on file,adipe x agreement on filediscus sed diet and exercise [id number] Chacho Grimmolivemagui [address] [address] 12/20/2024 17:43:58 12/20/2024 18:07:05 Obesity 067179461 E66.9 continue low fat/carb/c alorie diet and exerciseka sper#32247 2809 Body mass index 25-29 - overweight 223074071 Z68.29 31.3contin ue diet and exercise planPt compliant with plan of caremedica tion compliance discussedC ontrol substance agreement on file,adipe x agreement on filediscus sed diet and exercise [id number] Leonelalyle ines [address] [address] 02/07/2025 12:51:52 02/07/2025 14:00:31 Body mass index 25-29 - overweight 285411987 Z68.29 31.3contin ue diet and exercise planPt compliant with plan of caremedica tion compliance discussedC ontrol substance agreement on file,adipe x agreement on filediscus sed diet and exercisere turn after 02/24 since wt gain. [id number] Christinanoah Webb[address] [address] 02/23/2025 15:05:20 02/23/2025 15:38:28 Overweight 833423146 E66.3 Discussed healthy eating and portioning foods with diet and exercise Long-term current use of drug therapy 047806213 Z79.899 99196901 Body mass index 25-29 - overweight 488694265 Z68.29 33continue diet and exercise planPt compliant with plan of caremedica tion compliance discussedC ontrol substance agreement on file,adipe x agreement on filediscus sed diet and exercise [id number] Christinanoah Webb[address] [address] 03/28/2025 17:25:55 03/28/2025 18:02:06 Overweight 566481404 E66.3 Discussed healthy eating and portioning foods with diet and exercise Obesity 963330957 E66.9 continue low fat/carb/c alorie diet and exercise sper # 895755019 Body mass index 25-29 - overweight 920994991 Z68.29 31.8contin ue diet and exercise planPt compliant with plan of caremedica tion compliance discussedC ontrol substance agreement on file,adipe x agreement on filediscus sed diet and exercise Body mass index 30+ - obesity 455649483 Z68.31 59551238 31.8contin ue diet and exercise planPt compliant with plan of caremedica tion compliance discussedC ontrol substance agreement on file,adipe x agreement on filediscus sed diet and exercise [id number] [facility] Grimmolivemagui[address] [address] 05/23/2025 16:59:29 05/23/2025 17:32:52 Body mass index 25-29 - overweight 811978321 Z68.29 30.7contin ue diet and exercise planPt compliant with plan of caremedica tion compliance discussedC ontrol substance agreement on file,adipe x agreement on filediscus sed diet and exercise [id number] Chacho Webb APRN [address] [address] 08/04/2025 09:44:48 08/04/2025 10:17:56 Body mass index 30+ - obesity 946741075 Z68.31 690169 31.continu e diet and exercise planPt compliant with plan of caremedica tion compliance discussedC ontrol substance agreement on file,adipe x agreement on filediscus sed diet and exerciseco ntinue low fat/carb 40/calorie 1800 diet and exercise= 3 days a week for 30 mins and advance as tolerated Long-term current use of drug therapy 101196439 Z79.899 24126617 Health Concerns Section Related Observation LastModified by Organization Detai ls LastModified Time None Recorded Concern Status LastModified by Organization Details LastModified Time None Recorded Advance Directives Directive N: Payers Insurance Date Sequence Insurance Name Policy Number Policy Bingham Covered Member ID Bingham Member ID Guarantor Name 03/23/2023 2 [facility] ([facility]) [id number] Emely Kaylen [id number] Norm[place]ee [place] Feeback 05/23/2025 1 [facility] (MEDICAID [facility] [place] [place] Normandee B [place] [id number] Normandee Kaylen Feeback 08/29/2025 [place] [facility] [place] [place]ICAID) Normandee B Kaylen [id number] Normandee [place] Feeback 09/20/2025 1 [employer] [id number] Normandee B Feeback [id number] Normandee Kaylen Feeback Notes Date Note Type Note Provider Name and Address Organization Details Recorded Time 02/07/2025 text/html 29 yr old female presents for a weight loss follow up. missed appointment 2 weeks ago. up 6 lbs Chacho Webb APRN [address], [place], [address], [place] - [facility] 02/07/2025 13:58:14 02/23/2025 text/html 29 year old female who presents to the office today for a follow up onweight loss-at today's appt she weighs 217 lbs, last month was her month off adipex and she states she did not do well on her dietat her last appt on 02-08-24 she weighed 211 lbs Chacho Webb [place]ARDO [address], [place], [address], [place] - [facility] 02/23/2025 15:50:33 03/28/2025 text/html 29 yr old female presents for a weight loss follow up. down 8 lbs pt states doing well on meds with diet and exercise Chacho Webb [place] [address], [place], [address], [place] - [facility] 03/28/2025 17:59:37 05/23/2025 text/html 30 year old female who presents to the office today for a follow up onweight loss-- today she weighs 202 lbsat her last appt on 03-28-2025 she weighed 209 lbspt has new insurance and would like to discuss possibly starting zepbound with adipex Chacho Webb [place] [address], [place], [address], [place] - [facility] 05/23/2025 18:28:37 08/04/2025 text/html 30 yr old female presents for a follow up on weight loss. She would like to try wegovy and restart adipex. pt states she done well on adipex in the past. pt states she has been dieting and exercising but has not been successful with losing wt Chacho Webb [place] [address], [place], [address], [place] - [facility] 08/04/2025 10:21:52 OBGyn Episode No OBEpisode recorded.
--- OUTSIDE RECORDS SUMMARY | 2025-10-06 19:37 | XMS_ITS | Continuity of Care Document ---
Author Organization [facility] Address [address] [place] [address] Assessment No assessment recorded. Plan of Treatment Reminders Order Date Submit Date Provider Last Modified By Organization Details Last Modified Time Details Appointments Establish ed Patient 20 2025 09:20A Jalil Webb APRN Not available Not available Not available Lab drug screen, urine 2024 [facility], [address] [place] [address], [phone], 08/04/2025 10:21:20 Referral None recorded. Procedures None recorded. Surgeries None recorded. Imaging None recorded. Medication Orders Adipex-P 37.5 mg tablet 2024 [facility], [address] [place] [address] [address] [place], [id number], 08/04/2025 11:44:08 Wegovy 0.25 mg/0.5 mL subcutane ous pen injector 2024 025 [facility], [address] [place] [address] [address] [place], [id number], 08/23/2025 10:55:54 Patient TargetsNo targets recorded. Patient Instructions Encounter Date Encounter Id Patient Instructions Last Modified By Organization Details Last Modified Time 08/04/2025 [id number] learning about healthy weight homero Not available 08/04/2025 10:21:20 body mass index: care instructions homero Not available 08/04/2025 10:21:20 Reason for Referral None Reported. Results Created Date Observation Date Name Description Value Unit Range Abnormal Flag Note LastModifiedBy Organization Detail LastModifiedTime 08/04/2008/04/2025 drug scree n, urine AMP negati ve Not Available [address], [address], 08/04/2025 10:06:23 08/04/2008/04/2025 drug scree n, urine BAR negati ve Not Available [address], [address], 08/04/2025 10:06:23 08/04/2008/04/2025 drug scree n, urine BUP negati ve Not Available [address], [address], 08/04/2025 10:06:23 08/04/20 25 08/04/2025 drug scree n, urine BZO negati ve Not Available [address], [address], 08/04/2025 10:06:23 08/04/20 25 08/04/2025 drug scree n, urine DEANA negati ve Not Available [address], [address], 08/04/2025 10:06:23 08/04/20 25 08/04/2025 drug scree n, urine FTY negati ve Not Available [address], [address], 08/04/2025 10:06:23 08/04/20 25 08/04/2025 drug scree n, urine MDMA negati ve Not Available [address], [address], 08/04/2025 10:06:23 08/04/2008/04/2025 drug scree n, urine MET negati ve Not Available [address], [address], 08/04/2025 10:06:23 08/04/2008/04/2025 drug scree n, urine MOP negati ve Not Available [address], [address], 08/04/2025 10:06:23 08/04/2008/04/2025 drug scree n, urine MTD negati ve Not Available [address], [address], 08/04/2025 10:06:23 08/04/2008/04/2025 drug scree n, urine OXY negati ve Not Available [address], [address], 08/04/2025 10:06:23 08/04/2008/04/2025 drug scree n, urine PCP negati ve Not Available [address], [address], 08/04/2025 10:06:23 08/04/2008/04/2025 drug scree n, urine TCA negati ve Not Available [address], [address], 08/04/2025 10:06:23 08/04/2008/04/2025 drug scree n, urine THC negati ve Not Available [address], [address], 08/04/2025 10:06:23 Result Notes None recorded. Problems Name Problem SNOMED Code Status Onset Date Resolution Date Notes Provider Name and Address Organization Details Recorded Time Gestatio nal diabetes mellitus 05170662 Completed 03/23/2023 Removal Reason: had with her pregnanc ies Renae Toro null, [place] - [facility] 3 15:47:30 Prediabe michelle 154530695 Active Renae Toro null, [place] - [facility] 3 15:48:02 Vitamin D deficien cy 86298693 Active 2022 Eugnoah Webb, [employer] [address], [place], [address] , [place] - [facility] 3 08:33:30 Overweig ht 411566614 Active 2022 Vickie Stears null, [place] - [...] Updated DateTime 5 172.72 cm 31 kg/m2 07281.8 4 g 77 /min 98 [degF] 97 % 18 /min 0 108/64 mm[Hg] Renae Turnerler [place] - [facility] 5 10:05:45 Social History Question Answer Notes LastModified by Organizat ion Details LastModified Time Tobacco Smoking Status Current Some Day Smoker Renae Muna null, [place] - [facility] 03/23/2023 15:45:50 Do [...] Or The Highest Degree You Have Received? [id number] Information not available 03/23/2023 Have There Been Any Changes To Your Family Or Social Situation? No Information no t available 03/23/2023 Have You Recently Or Are You Planning To Travel To An Area With Zika Virus? No Information not available 03/23/2023 How Many Years Have You Used Illicit Or Recreational Drugs? 0 Information not available 03/23/2023 Do You Have A Medical Power Of Furniture Dipper? 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 [id number] Information not available 03/23/2023 Do you have [...] 11:28:14 Tdap 0 completed Renae Muna null, [place] - [facility] 03/26/2023 11:28:14 Hep B, adolescent or pediatric 8 completed Renae Muna null, [place] - [facility] 03/26/2023 11:28:14 Hep B, adolescent [...] ICD10 Code Diagnosis IMO Codes Diagnosis Note [id number] Chacho Webb APRN [address] [address] 08/04/2025 09:44:48 08/04/2025 10:17:56 Body mass index 30+ - obesity 282152698 Z68.31 427717 31.continu e diet and exercise planPt compliant with plan of caremedica tion compliance discussedC ontrol substance agreement on file,adipe x agreement on filediscus sed diet and exerciseco ntinue low fat/carb 40/calorie 1800 diet and exercise= 3 days a week for 30 mins and advance as tolerated Long-term current use of drug therapy 503859097 Z79.899 [id number] Health Concerns Section Related Observation LastModified by Organization Detai ls LastModified Time None Recorded Concern Status LastModified by Organization Details LastModified Time None Recorded Payers Encounter Date Sequence Insurance Name Policy Number Policy [place] Covered Member ID [place] Member ID Guarantor Name 08/04/2025 1 R [id number] Normandee B Feeback [id number] Normandee Kaylen Feeback Notes Date Note [...] been successful with losing wt Chacho Webb, [employer] [address], [place], [address], [place] - [facility] 08/04/2025 10:21:52 OBGyn Episode No OBEpisode recorded.
--- OUTSIDE RECORDS SUMMARY | 2025-10-06 19:37 | XMS_ITS | Clinical Summary ---
Author Organization [facility] Address [address] [place] [address] Care Team Providers Care Commercial Instructor Supervisor Name Role Phone Ac Wisdom MD Primary [...] age to complete this topic Insurance [facility] PPO Care Teams Commercial Instructor Supervisor Relationship Specialty Start Date End Date Ac Wisdom MD [address] [place] [address] PCP - General Internal Medicine 03/17/22
--- OUTSIDE RECORDS SUMMARY | 2025-10-06 19:37 | XMS_ITS | Clinical Summary ---
Author Organization [facility] Address [address] [place] [address] Care Team Providers Care Paste Plant Supervisor Name Role Phone Unavailable Primary Care Provider [...] 19+ 3-dose series) 2016 [facility]-Pap Smear 2018 [id number] Vaccine (1 - 20 25-26 season) 2025 [facility]-Influenza Vaccine (#1) 2025 [facility]-Zoster Vaccines (1 of 2) 2047 HPV Vaccines (No Doses Required) Completed [facility]-HIB Vaccines Aged Out No longer e [...]
[2025-10-06 19:38] VITALS: BP 144/88; PULSE 104; RESP 18; TEMP 37.3; O2SAT 99; BMI 31.6
[2025-10-06 20:08] LABS: Microscopic, Urine URINE MICROSCOPIC (MICROSCOPIC)
[2025-10-06 20:10] LABS: Hematocrit 40.6 % (37.0-47.0); Hemoglobin 13.6 g/dL (12.2-16.2); Immature Granulocytes % 0.2 %; Mean Corpuscular HGB Conc 33.5 g/dL (31.8-35.4); Mean Corpuscular Hemoglobin 31.0 pg (27.0-31.2); Mean Corpuscular Volume 92.5 fl (81-99); Nucleated Red Blood Cells % 0 %; Platelet Count 307 K/mm3 (142-424); Red Blood Count 4.39 M/mm3 (4.20-5.40); Red Cell Distribution Width-SD 47.1 fL; White Blood Count 9.7 K/mm3 (4.8-10.8)
[2025-10-06] MEDS: ORPHENADRINE CITRATE 60MG/2ML VIAL 60 MG IV (20:12)
[2025-10-06] MEDS: KETOROLAC 15MG/ML VIAL 15 MG IV (20:12)
[2025-10-06 20:17] VITALS: BP 123/71; PULSE 84; O2SAT 98
[2025-10-06 20:19] LABS: Bilirubin,Urine Negative (Negative); Color,Urine YELLOW (Yellow); Glucose,Urine (UA) Negative (Negative); Ketones,Urine TRACE (Negative); Leukocyte Esterase,Urine Negative (Negative); PH,Urine 7.0 (5.0-8.5); Protein,Urine Negative (Negative); Specific Gravity, Urine 1.020 (1.005-1.030); Urobilinogen,Urine 0.2 EU/dl (0.2)
[2025-10-06 20:21] LABS: Lipase 29 U/L (23-300); Urine Pregnancy, HCG Qual. Negative (Negative)
[2025-10-06 20:23] LABS: Alanine Aminotransferase 19 U/L (12-78); Albumin Level 4.4 g/dl (3.5-5.0); Albumin/Globulin Ratio 1.4 (1.1-1.8); Alkaline Phosphatase 50 U/L (38-126); Anion Gap 12.8 mEq/L (5-15); Aspartate Amino Transferase 23 U/L (14-36); Bilirubin,Total 0.4 mg/dl (0.2-1.3); Blood Urea Nitrogen 13 mg/dl (7-17); Calcium 9.0 mg/dl (8.4-10.2); Carbon Dioxide 27 mmol/L (22.0-30.0); Chloride 103 mmol/L (98-107); Creatinine Clearance Estimated 156 mL/min (50-200); Creatinine,Serum 0.80 mg/dl (0.52-1.04); Estimated Glomerular Filt Rate 85 ml/min (>60); GFR (African American) 103 ML/MIN (>60); Globulin 3.1 g/dL (1.3-3.2); Glucose 105 mg/dl (74-100); Potassium 3.8 mmoL/L (3.5-5.1); Sodium 139 mmol/L (136-145); Total Protein,Serum 7.5 g/dl (6.3-8.2)
[2025-10-06 20:31] VITALS: BP 123/71; PULSE 93; RESP 18; O2SAT 100
[2025-10-06 20:43] LABS: Bacteria,Urine 3+ /lpf; Mucus,Urine 4+ /lpf; Squamous Epithelial Cell,Urine 50-100 #/hpf (0-5)
[2025-10-06 20:54] VITALS: BP 130/80; PULSE 100; RESP 20; TEMP 37.2; O2SAT 100
== END 2025-10-06 21:04 | disposition home or self-care (01) ==
PROVIDERS: Nurse Practitioner Family; Emergency Provider Student in an Organized Health Care Education/Training Program; PCP Nurse Practitioner Family
DX: S29.012A Strain of muscle and tendon of back wall of thorax, initial encounter (principal); R10.24 Suprapubic pain; R51.9 Headache, unspecified; V40.5XXA Car driver injured in collision with pedestrian or animal in traffic accident, initial encounter
CPT/HCPCS: 80053; 81001; 81025; 83690; 85025; 87086; 96374; 96375; 99284; J1885; J2360

== ENCOUNTER 2025-10-09 23:15 | Emergency (ER) | payer OTHER, SELFPAY ==
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
[2025-10-09 23:32] VITALS: BP 143/78; PULSE 84; RESP 18; TEMP 36.6; O2SAT 98; BMI 31.9
--- OUTSIDE RECORDS SUMMARY | 2025-10-09 23:46 | XMS_ITS | Data Portability ---
Author Organization [facility] hospital Address [address] [facility] [place] [address] Assessment Encounter Date Assessment Date Assessment LastModified [...] available Lab drug screen, urine 2024 025 [facility], [address] [place] [address], [id number], 08/04/2025 10:21:20 drug screen, urine 2024 025 [facility], [address] [place] [address], [address], 02/23/2025 15:49:55 Referral None recorded. Procedures None recorded. Surgeries None recorded. Imaging None recorded. Medication Orders Adipex-P 37.5 mg tablet 2024 025 [facility], [address] [place] [address] [address] [place], [id number], 08/04/2025 11:44:08 Wegovy 0.25 mg/0.5 mL subcutane ous pen injector 2024 025 [facility], [address] [place] [address] [address] [place], [id number], 08/23/2025 10:55:54 phentermi ne 37.5 mg tablet 2024 [facility], [address] [place], [address], 05/23/2025 18:28:31 Zepbound 2.5 mg/0.5 mL subcutane ous pen injector 2024 025 [facility], [address] [place], [place] [address], [address], 08/04/2025 10:02:46 phentermi ne 37.5 mg tablet 2024 025 [facility], [address] [place], [address], 03/28/2025 17:48:28 phentermi ne 37.5 mg tablet 2024 025 [facility], [address] [place], [address], 02/23/2025 15:50:04 Patient TargetsNo targets recorded. Patient Instructions Encounter Date Encounter Id Patient Instructions Last Modified By Organization Details Last Modified Time 02/07/2025 [id number] Treament Plan: Patient will start medication as directed. Patient will continue exercise, watch calorie intake, and follow up for weight check in 1 month. cbuckler Not available 02/07/2025 13:05:00 03/28/2025 [id number] learning about healthy weight efryman Not available 03/28/2025 17:48:21 body mass index: care instructions efryman Not available 03/28/2025 17:48:21 Treament Plan: Patient will start medication as directed. Patient will continue exercise, watch calorie intake, and follow up for weight check in 1 month. cbuckler Not available 03/28/2025 17:31:55 05/23/2025 [id number] Treament Plan: Patient will start medication as directed. Patient will continue exercise, watch calorie intake, and follow up for weight check in 1 month. bstears Not available 05/23/2025 17:12:52 08/04/2025 [id number] learning about healthy weight efryman Not available 08/04/2025 10:21:20 body mass index: care instructions efryman Not available 08/04/2025 10:21:20 Reason for Referral None Reported. Results Created Date Observation Date Name Description Value Unit Range Abnormal Flag Note LastModifiedBy Organization Detail LastModifiedTime 02/24/2002/23/2025 drug scree n, urine THC negati ve Not Available [address], [address], 02/23/2025 15:35:24 02/24/20 25 02/23/2025 drug scree n, urine TCA negati ve Not Available [address], [address], 02/23/2025 15:35:24 02/24/20 25 02/23/2025 drug scree n, urine BAR negati ve Not Available [address], [address], 02/23/2025 15:35:24 02/24/20 25 02/23/2025 drug scree n, urine BZO negati ve Not Available [address], [address], 02/23/2025 15:35:24 02/24/20 25 02/23/2025 drug scree n, urine MTD negati ve Not Available [address], [address], 02/23/2025 15:35:24 02/24/20 25 02/23/2025 drug scree n, urine AMP negati ve Not Available [address], [address], 02/23/2025 15:35:24 02/24/20 25 02/23/2025 drug scree n, urine MOP negati ve Not Available [address], [address], 02/23/2025 15:35:24 02/24/20 25 02/23/2025 drug scree n, urine OXY negati ve Not Available [address], [address], 02/23/2025 15:35:24 02/24/20 25 02/23/2025 drug scree n, urine MDMA negati ve Not Available [address], [address], 02/23/2025 15:35:24 02/24/20 25 02/23/2025 drug scree n, urine DEANA negati ve Not Available [address], [address], 02/23/2025 15:35:24 02/24/20 25 02/23/2025 drug scree n, urine PCP negati ve Not Available [address], [address], 02/23/2025 15:35:24 02/24/20 25 02/23/2025 drug scree n, urine MET negati ve Not Available [address], [address], 02/23/2025 15:35:24 08/04/20 25 08/04/2025 drug scree n, urine AMP negati ve Not Available [address], [address], 08/04/2025 10:06:23 08/04/2008/04/2025 drug scree n, urine BAR negati ve Not Available [address], [address], 08/04/2025 10:06:23 08/04/2008/04/2025 drug scree n, urine BUP negati ve Not Available [address], [address], 08/04/2025 10:06:23 08/04/20 25 08/04/2025 drug scree n, urine BZO negati ve Not Available [address], [address], 08/04/2025 10:06:23 08/04/20 25 08/04/2025 drug scree n, urine DEANA negati ve Not Available [address], [address], 08/04/2025 10:06:23 08/04/20 25 08/04/2025 drug scree n, urine FTY negati ve Not Available [address], [address], 08/04/2025 10:06:23 08/04/20 25 08/04/2025 drug scree n, urine MDMA negati ve Not Available [address], [address], 08/04/2025 10:06:23 08/04/2008/04/2025 drug scree n, urine MET negati ve Not Available [address], [address], 08/04/2025 10:06:23 08/04/2008/04/2025 drug scree n, urine MOP negati ve Not Available [address], [address], 08/04/2025 10:06:23 08/04/2008/04/2025 drug scree n, urine MTD negati ve Not Available [address], [address], 08/04/2025 10:06:23 08/04/2008/04/2025 drug scree n, urine OXY negati ve Not Available [address], [address], 08/04/2025 10:06:23 08/04/2008/04/2025 drug scree n, urine PCP negati ve Not Available [address], [address], 08/04/2025 10:06:23 08/04/2008/04/2025 drug scree n, urine TCA negati ve Not Available [address], [address], 08/04/2025 10:06:23 08/04/2008/04/2025 drug scree n, urine THC negati ve Not Available [address], [address], 08/04/2025 10:06:23 Result Notes None recorded. Problems Name Problem SNOMED Code Status Onset Date Resolution Date Notes Provider Name and Address Organization Details Recorded Time Gestatio nal diabetes mellitus 76312420 Completed 03/23/2023 Removal Reason: had with her pregnanc ies Renae Toro null, [place] - [facility] 3 15:47:30 Prediabe michelle 631563400 Active Renae Toro null, [place] - [facility] 3 15:48:02 Vitamin D deficien cy 45612403 Active 2022 Eugnoah Webb, IMPLEMENTATION ANALYST [address], [place], [address] , [place] - [facility] 3 08:33:30 Overweig ht 933040221 Active 2022 Vickie Stears null, [place] - [...] Updated DateTime 5 172.72 cm 32.1 kg/m2 07712.9 9 g 77 /min 98 % 18 /min 0 108/62 mm[Hg] Renae Muna [place] - [facility] 5 13:21:46 Date Recorded Body height Body mass index (BMI) Body weight Heart rate Respiratory rate Oxygen saturation Body temperature Systolic And Diastolic Provider Name and Address Organization Details Last Updated DateTime 5 172.72 cm 33 kg/m2 24519.5 4 g 100 /min 18 /min 97 [...] Updated DateTime 5 172.72 cm 31.8 kg/m2 03280.8 1 g 97.2 [degF] 100 /min 96 % 18 /min 0 114/64 mm[Hg] Renae Toro [place] - [facility] 5 17:38:38 Date Recorded Body height Body mass index (BMI) Body weight Respiratory rate Oxygen saturation Heart rate Body temperature Systolic And Diastolic Provider Name and Address Organization Details Last Updated DateTime 5 172.72 cm 30.7 kg/m2 56264.6 6 g 18 /min 97 % 70 /min 98.1 [degF] 114/70 mm[Hg] Vickie Richardss [place] - [facility] 5 17:15:34 Date Recorded Body height Body mass index (BMI) Body weight Heart rate Body temperature Oxygen saturation Respiratory rate Pain severity - 0-10 verbal numeric rating [Score] - Reported Systolic And Diastolic Provider Name and Address Organization Details Last Updated DateTime 5 172.72 cm 31 kg/m2 44054.8 4 g 77 /min 98 [degF] 97 [...] Or The Highest Degree You Have Received? [id number] Information not available 03/23/2023 Have There Been Any Changes To Your Family Or Social Situation? No Information no t available 03/23/2023 Have You Recently Or Are You Planning To Travel To An Area With Zika Virus? No Information not available 03/23/2023 How Many Years Have You Used Illicit Or Recreational Drugs? 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 [id number] Information not available 03/23/2023 Do you have [...] or pediatric 7 completed Renae Muna null, [place] - [facility] 03/26/2023 11:28:15 Influenza, split virus, quadrivalent, PF 8 completed Renae Turnerler [place], [place] - [facility] 03/26/2023 11:28:15 Influenza, split virus, quadrivalent, PF 7 completed Renae Turnerler null, [place] - [facility] 03/26/2023 11:28:15 Past Encounters Encounter ID Performer Location Encounter Start Date Encounter Closed Date Diagnosis/Indication Diagnosis SNOMED-CT Code Diagnosis ICD10 Code Diagnosis IMO Codes Diagnosis Note [id number] Chacho Webb [address] [address] 03/23/2023 15:07:55 03/23/2023 16:19:52 Body mass index 30+ - obesity 491255151 Z68.32 Obesity 361334367 E66.9 Prediabetes 336532640 R7 3.03 Fatigue 18232173 R53.83 Vitamin D deficiency 347 23247 E55.9 [id number] Chacho Webb IMPLEMENTATION ANALYST [address] [address] 03/26/2023 11:14:25 03/26/2023 11:45:46 Body mass index 30+ - obesity 956144952 Z68.32 Pt compliant with plan of careAniket reviewed and appropriat emedicatio n compliance discussedL ast uds: 03/26/23Con trol substance agreement on file Obesity 788958066 E66.9 will try to see if wegovy is covered on her insurance- if not will send adipex- discussed med and diet with pt Prediabetes 281319721 R7 3.03 Hyperlipidemia 06755294 E78.5 [id number] Chacho Webb [address] [address] 04/27/2023 10:53:07 04/27/2023 11:17:27 Body mass index 30+ - obesity 029180269 Z68.32 Pt compliant with plan of careKasper reviewed and appropriat emedicatio n compliance discussedL ast uds: 03/26/23Con trol substance agreement on filelow fat/carb/c alorie diet and exercise plan Obesity 829816033 E66.9 pt states she is on ozempic 0.5mg and keto diet [id number] Chacho Grimmines [address] [address] 05/25/2023 13:59:03 05/25/2023 14:41:01 Body mass index 30+ - obesity 417900704 Z68.32 Pt compliant with plan of careKasper reviewed and appropriat emedicatio n compliance discussedL ast uds: 03/26/23Con trol substance agreement on filelow fat/carb/c alorie diet and exercise plan [id number] Chacho Grimmines [address] [address] 06/22/2023 13:02:28 06/22/2023 13:58:23 Body mass index 30+ - obesity 616799522 Z68.32 Pt compliant with plan of careKasper reviewed and appropriat emedicatio n compliance discussedL ast uds: 03/26/23Con trol substance agreement on filelow fat/carb/c alorie diet and exercise plan next [id number] Chacho Webb [address] [address] 08/24/2023 10:01:17 08/24/2023 10:43:45 Body mass index 30+ - obesity 419968902 Z68.32 Pt compliant with plan of careKasper reviewed and appropriat emedicatio n compliance discussedL ast uds: 08/24/23Co ntrol substance agreement on filelow fat/carb/c alorie diet and exercise plandrug holiday next month Long-term drug therapy 236697612 Z79.298 [id number] Chacho Webb [address] [address] 09/21/2023 13:59:29 09/21/2023 15:13:40 Body mass index 25-29 - overweight 133920985 Z68.29 29.8contin ue diet and exercise plan Overweight 365580226 E66 .3 [id number] Chacho Webb [address] [address] 10/26/2023 10:12:08 10/26/2023 10:33:09 Body weight problem 998969155 R68.89 Prediabetes 580126514 R7 3.03 pt states she is continued with diet and exercisePt compliant with plan of careKasper reviewedme dication compliance discussedL ast uds:Control substance agreement on file Body mass index 30+ - obesity 681197086 Z68.30 Pt compliant with plan of careKasper reviewed and appropriat emedicatio n compliance discussedL ast uds: 08/24/23Co ntrol substance agreement on filelow fat/carb/c alorie diet and exercise plandrug holiday next month- will do one more month then her bmi she will not contiune. Obesity 553906885 E66.9 pt states she is on keto diet [id number] Chacho Webb [address] [address] 12/21/2023 13:20:27 12/21/2023 14:05:38 Overweight 321172132 E66.3 Body mass index 25-29 - overweight 368072701 Z68.29 30.1contin ue diet and exercise planPt compliant with plan of careKasper reviewedme dication compliance discussedL ast uds:Control substance agreement on file [id number] Chacho Webb [address] [address] 02/19/2024 14:43:42 02/19/2024 15:21:27 Overweight 443655483 E66.3 Body mass index 25-29 - overweight 692988585 Z68.29 31.5contin ue diet and exercise planPt compliant with plan of careKasper reviewedme dication compliance discussedL ast uds:Control substance agreement on file Body mass index 30+ - obesity 902674027 Z68.31 Pt compliant with plan of careKasper reviewed and appropriat emedicatio n compliance discussedL ast uds: 08/24/23Co ntrol substance agreement on filelow fat/carb/c alorie diet and exercise plan Obesity 629383436 E66.9 pt states she is on keto diet [id number] Christinanoah Webb [address] [address] 04/26/2024 17:58:02 04/26/2024 18:49:40 Overweight 364438375 E66.3 Discussed healthy eating and portioning foods. Body mass index 25-29 - overweight 617209503 Z68.29 31.5contin ue diet and exercise planPt compliant with plan of careKasper reviewedme dication compliance discussedL ast uds:Control substance agreement on file [id number] Christinagiselelyle Grimmines [address] [address] 06/07/2024 18:01:27 06/07/2024 18:53:07 Body mass index 25-29 - overweight 318455574 Z68.29 32.9contin ue diet and exercise planPt compliant with plan of careKasper reviewedme dication compliance discussedL ast uds: 4Control substance agreement on file [id number] Christinagiselelyle Grimmines [address] [address] 06/28/2024 17:24:49 06/28/2024 17:58:23 Screening for malignant neoplasm of cervix 273394503 Z12.4 Patient declined at this time. Vitamin D deficiency 347 58501 E55.9 04/03 vit d was 19.6 Hypercholesterolemia 136 91312 E78.00 04/03 LDL were 110 (high) and HDL was 37 (low) Influenza vaccination declined 538047437 Z28.21 patient declined flu vaccine at this time Body mass index 30+ - obesity 249607930 Z68.31 Obesity 675469563 E66.9 [id number] Chacho Webb[address] [address] 07/26/2024 17:20:45 07/26/2024 17:55:19 Body mass index 30+ - obesity 094645674 Z68.31 Pt compliant with plan of caresp reviewed #[id number] medication compliance discussedL ast uds: 4Control substance agreement on file [id number] Chacho Webb [address] [address] 08/23/2024 17:37:01 08/23/2024 18:08:04 Body mass index 25-29 - overweight 808895357 Z68.29 32.9contin ue diet and exercise planPt compliant with plan of caresper reviewed #866711295 medication compliance discussedL ast uds: 4Control substance agreement on filemed sent late was waiting on aniket it was manual processing [id number] Christinanoah Webb[address] [address] 09/12/2024 09:54:23 09/12/2024 10:36:58 Overweight 281338253 E66.3 Discussed healthy eating and portioning foods. General ex amination of patient 604012031 Z00.00 Screening for cardiovascular system disease 411669826 Z13.6 Endocrine/ metabolic screening 789363171 Z13.228 Screening mammography 24 176336 Z12.31 Exercises education, guidance, and counseling 768419021 Z71.82 The patient was advised to continue a healthy diet and exercise regularly. Dietary ma nagement surveillance 866349127 Z71.3 Middle ear effusion 1004 846302 H74.8X9 Body mass index 25-29 - overweight 031506663 Z68.29 30.9contin ue diet and exercise planPt compliant with plan of careKasper reviewed 521639707b edication compliance discussedL ast uds: 4Control substance agreement on filewill prescribe med and send with hold - [id number] Chacho Grimmines [address] [address] 10/25/2024 17:10:46 10/25/2024 17:41:57 Obesity 745788088 E66.9 continue low fat/carb/c alorie diet and exercisedr this month [id number] Christinanoah ines [address] [address] 11/25/2024 16:00:27 11/25/2024 16:30:20 Body mass index 25-29 - overweight 221639899 Z68.29 31.5contin ue diet and exercise planPt compliant with plan of careKasper reviewed -manual process#24 [id number] ication compliance discussedL ast uds: 4Control substance agreement on file,adipe x agreement on filediscus sed diet and exercise [id number] Chacho Grimmolivemagui [address] [address] 12/20/2024 17:43:58 12/20/2024 18:07:05 Obesity 381726328 E66.9 continue low fat/carb/c alorie diet and exerciseka sper#96425 2809 Body mass index 25-29 - overweight 960853716 Z68.29 31.3contin ue diet and exercise planPt compliant with plan of caremedica tion compliance discussedC ontrol substance agreement on file,adipe x agreement on filediscus sed diet and exercise [id number] Leonelalyle ines [address] [address] 02/07/2025 12:51:52 02/07/2025 14:00:31 Body mass index 25-29 - overweight 560482367 Z68.29 31.3contin ue diet and exercise planPt compliant with plan of caremedica tion compliance discussedC ontrol substance agreement on file,adipe x agreement on filediscus sed diet and exercisere turn after 02/24 since wt gain. [id number] Christinanoah Webb[address] [address] 02/23/2025 15:05:20 02/23/2025 15:38:28 Overweight 897851379 E66.3 Discussed healthy eating and portioning foods with diet and exercise Long-term current use of drug therapy 641800104 Z79.899 96512245 Body mass index 25-29 - overweight 339131070 Z68.29 33continue diet and exercise planPt compliant with plan of caremedica tion compliance discussedC ontrol substance agreement on file,adipe x agreement on filediscus sed diet and exercise [id number] Chirstinanoah Webb[address] [address] 03/28/2025 17:25:55 03/28/2025 18:02:06 Overweight 611847000 E66.3 Discussed healthy eating and portioning foods with diet and exercise Obesity 795515526 E66.9 continue low fat/carb/c alorie diet and exercise sper # 440239182 Body mass index 25-29 - overweight 140373720 Z68.29 31.8contin ue diet and exercise planPt compliant with plan of caremedica tion compliance discussedC ontrol substance agreement on file,adipe x agreement on filediscus sed diet and exercise Body mass index 30+ - obesity 179496760 Z68.31 78932772 31.8contin ue diet and exercise planPt compliant with plan of caremedica tion compliance discussedC ontrol substance agreement on file,adipe x agreement on filediscus sed diet and exercise [id number] [facility] Grimmolivemagui[address] [address] 05/23/2025 16:59:29 05/23/2025 17:32:52 Body mass index 25-29 - overweight 574464487 Z68.29 30.7contin ue diet and exercise planPt compliant with plan of caremedica tion compliance discussedC ontrol substance agreement on file,adipe x agreement on filediscus sed diet and exercise [id number] Chacho Webb APRN [address] [address] 08/04/2025 09:44:48 08/04/2025 10:17:56 Body mass index 30+ - obesity 409808015 Z68.31 202653 31.continu e diet and exercise planPt compliant with plan of caremedica tion compliance discussedC ontrol substance agreement on file,adipe x agreement on filediscus sed diet and exerciseco ntinue low fat/carb 40/calorie 1800 diet and exercise= 3 days a week for 30 mins and advance as tolerated Long-term current use of drug therapy 185238408 Z79.899 [id number] Health Concerns Section Related Observation LastModified by Organization Detai ls LastModified Time None Recorded Concern Status LastModified by Organization Details LastModified Time None Recorded Advance Directives Directive N: Payers Insurance Date Sequence Insurance Name Policy Number Policy [place] Covered Member ID B[place] Member ID Guarantor Name 03/23/2023 2 [facility] ([facility]) [id number] Emely Kaylen [id number] [place] Feeback 05/23/2025 1 [facility] [place] [facility] [place] [id number] Normandee Kaylen Feeback 08/29/2025 [place] [facility] [employer]ID[place] Normandee B Kaylen [id number] [place] Feeback 09/20/2025 1 [employer] [id number] Normandee B Feeback [id number] Normandee Kaylen Feeback Notes Date Note Type Note Provider Name and Address Organization Details Recorded Time 02/07/2025 text/html 29 yr old female presents for a weight loss follow up. missed appointment 2 weeks ago. up 6 lbs Chacho Webb APRN [address], [place], [address], [place] - [facility] 02/07/2025 13:58:14 02/23/2025 text/html 29 year old female who presents to the office today for a follow up onweight loss-at today's appt she weighs 217 lbs, last month was her month off adipex and she states she did not do well on her dietat her last appt on 02-08-24 she weighed 211 lbs Chacho Webb [place] [address], [place], [address], [place] - [facility] 02/23/2025 15:50:33 03/28/2025 text/html 29 yr old female presents for a weight loss follow up. down 8 lbs pt states doing well on meds with diet and exercise Chacho Webb [place] [address], [place], [address], [place] - [facility] 03/28/2025 17:59:37 05/23/2025 text/html 30 year old female who presents to the office today for a follow up onweight loss-- today she weighs 202 lbsat her last appt on 03-28-2025 she weighed 209 lbspt has new insurance and would like to discuss possibly starting zepbound with adipex Chacho Webb [place] [address], [place], [address], [place] - [facility] 05/23/2025 18:28:37 08/04/2025 text/html 30 yr old female presents for a follow up on weight loss. She would like to try wegovy and restart adipex. pt states she done well on adipex in the past. pt states she has been dieting and exercising but has not been successful with losing wt Chacho Webb [place] [address], [place], [address], [place] - [facility] 08/04/2025 10:21:52 OBGyn Episode No OBEpisode recorded.
--- OUTSIDE RECORDS SUMMARY | 2025-10-09 23:46 | XMS_ITS | Continuity of Care Document ---
Author Organization [facility] Address [address] [place] [address] Assessment No assessment recorded. Plan of Treatment Reminders Order Date Submit Date Provider Last Modified By Organization Details Last Modified Time Details Appointments Establish ed Patient 20 2025 09:20A Jalil Webb APRN Not available Not available Not available Lab drug screen, urine 2024 [facility], [address] [place] [address], [phone], 08/04/2025 10:21:20 Referral None recorded. Procedures None recorded. Surgeries None recorded. Imaging None recorded. Medication Orders Adipex-P 37.5 mg tablet 2024 [facility], [address] [place] [address] [address] [place], [id number], 08/04/2025 11:44:08 Wegovy 0.25 mg/0.5 mL subcutane ous pen injector 2024 025 [facility], [address] [place] [address] [address] [place], [id number], 08/23/2025 10:55:54 Patient TargetsNo targets recorded. Patient Instructions Encounter Date Encounter Id Patient Instructions Last Modified By Organization Details Last Modified Time 08/04/2025 [id number] learning about healthy weight homero Not available 08/04/2025 10:21:20 body mass index: care instructions homero Not available 08/04/2025 10:21:20 Reason for Referral None Reported. Results Created Date Observation Date Name Description Value Unit Range Abnormal Flag Note LastModifiedBy Organization Detail LastModifiedTime 08/04/2008/04/2025 drug scree n, urine AMP negati ve Not Available [address], [address], 08/04/2025 10:06:23 08/04/2008/04/2025 drug scree n, urine BAR negati ve Not Available [address], [address], 08/04/2025 10:06:23 08/04/2008/04/2025 drug scree n, urine BUP negati ve Not Available [address], [address], 08/04/2025 10:06:23 08/04/20 25 08/04/2025 drug scree n, urine BZO negati ve Not Available [address], [address], 08/04/2025 10:06:23 08/04/20 25 08/04/2025 drug scree n, urine DEANA negati ve Not Available [address], [address], 08/04/2025 10:06:23 08/04/20 25 08/04/2025 drug scree n, urine FTY negati ve Not Available [address], [address], 08/04/2025 10:06:23 08/04/20 25 08/04/2025 drug scree n, urine MDMA negati ve Not Available [address], [address], 08/04/2025 10:06:23 08/04/2008/04/2025 drug scree n, urine MET negati ve Not Available [address], [address], 08/04/2025 10:06:23 08/04/2008/04/2025 drug scree n, urine MOP negati ve Not Available [address], [address], 08/04/2025 10:06:23 08/04/2008/04/2025 drug scree n, urine MTD negati ve Not Available [address], [address], 08/04/2025 10:06:23 08/04/2008/04/2025 drug scree n, urine OXY negati ve Not Available [address], [address], 08/04/2025 10:06:23 08/04/2008/04/2025 drug scree n, urine PCP negati ve Not Available [address], [address], 08/04/2025 10:06:23 08/04/2008/04/2025 drug scree n, urine TCA negati ve Not Available [address], [address], 08/04/2025 10:06:23 08/04/2008/04/2025 drug scree n, urine THC negati ve Not Available [address], [address], 08/04/2025 10:06:23 Result Notes None recorded. Problems Name Problem SNOMED Code Status Onset Date Resolution Date Notes Provider Name and Address Organization Details Recorded Time Gestatio nal diabetes mellitus 10192893 Completed 03/23/2023 Removal Reason: had with her pregnanc ies Renae Toro null, [place] - [facility] 3 15:47:30 Prediabe michelle 142312788 Active Renae Toro null, [place] - [facility] 3 15:48:02 Vitamin D deficien cy 58184419 Active 2022 Eugnoah Webb, ASSOCIATE AUTOMATION ENGINEER [address], [place], [address] , [place] - [facility] 3 08:33:30 [place] ht 751908219 Active 2022 Vickie Stears null, [place] - [...] Updated DateTime 5 172.72 cm 31 kg/m2 47810.8 4 g 77 /min 98 [degF] 97 [...] Or The Highest Degree You Have Received? UN94850-5 Information not available 03/23/2023 Have There Been Any Changes To Your Family Or Social Situation? No Information no t available 03/23/2023 Have You Recently Or Are You Planning To Travel To An Area With Zika Virus? No Information not available 03/23/2023 How Many Years Have You Used Illicit Or Recreational Drugs? 0 Information not available 03/23/2023 Do You Have A Medical Power Of Industrial Aerial Installer? 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 [id number] Information not available 03/23/2023 Do you have [...] 11:28:14 Tdap 0 completed Renae Muna null, [place] - [facility] 03/26/2023 11:28:14 Hep B, adolescent or pediatric 8 completed Renae Muna null, [place] - [facility] 03/26/2023 11:28:14 Hep B, adolescent [...] ICD10 Code Diagnosis IMO Codes Diagnosis Note [id number] Chacho Webb APRN [address] [address] 08/04/2025 09:44:48 08/04/2025 10:17:56 Body mass index 30+ - obesity 936233083 Z68.31 364378 31.continu e diet and exercise planPt compliant with plan of caremedica tion compliance discussedC ontrol substance agreement on file,adipe x agreement on filediscus sed diet and exerciseco ntinue low fat/carb 40/calorie 1800 diet and exercise= 3 days a week for 30 mins and advance as tolerated Long-term current use of drug therapy 272656773 Z79.899 [id number] Health Concerns Section Related Observation LastModified by Organization Detai ls LastModified Time None Recorded Concern Status LastModified by Organization Details LastModified Time None Recorded Payers Encounter Date Sequence Insurance Name Policy Number Policy [place] Covered Member ID [place] Member ID Guarantor Name 08/04/2025 1 R [id number] Normandee B Feeback [id number] Normandee Kaylen Feeback Notes Date Note [...] been successful with losing wt Chacho Webb, ASSOCIATE AUTOMATION ENGINEER [address], [place], [address], [place] - [facility] 08/04/2025 10:21:52 OBGyn Episode No OBEpisode recorded.
--- OUTSIDE RECORDS SUMMARY | 2025-10-09 23:46 | XMS_ITS | Clinical Summary ---
Author Organization [facility] Address [address] [place] [address] Care Team Providers Care Emt B Name Role Phone Ac Wisdom MD Primary [...] age to complete this topic Insurance [facility] [employer] PPO Care Teams Emt B Relationship Specialty Start Date End Date Ac iWsdom MD [address] [place] [address] PCP - General Internal Medicine 03/17/22
--- OUTSIDE RECORDS SUMMARY | 2025-10-09 23:46 | XMS_ITS | Clinical Summary ---
Author Organization [facility] Address [address] [place] [address] Care Team Providers Care Missile Facilities Repairer Name Role Phone Unavailable Primary Care Provider [...] 19+ 3-dose series) 2016 [facility]-Pap Smear 2018 [id number] Vaccine (1 - 20 25-26 season) 2025 [...]
[2025-10-09 23:53] LABS: Hematocrit 41.0 % (37.0-47.0); Hemoglobin 13.8 g/dL (12.2-16.2); Immature Granulocytes % 0.2 %; Mean Corpuscular HGB Conc 33.7 g/dL (31.8-35.4); Mean Corpuscular Hemoglobin 31.0 pg (27.0-31.2); Mean Corpuscular Volume 92.1 fl (81-99); Nucleated Red Blood Cells % 0 %; Platelet Count 300 K/mm3 (142-424); Red Blood Count 4.45 M/mm3 (4.20-5.40); Red Cell Distribution Width-SD 46.5 fL; White Blood Count 9.1 K/mm3 (4.8-10.8)
[2025-10-09] MEDS: ONDANSETRON 4MG/2ML VIAL 4 MG IV (23:54)
[2025-10-09] MEDS: ACETAMINOPHEN 500MG TAB 1000 MG PO (23:54)
[2025-10-09] MEDS: MORPHINE 4MG/ML SYRINGE 4 MG IV (23:54)
[2025-10-10 00:03] LABS: Alanine Aminotransferase 16 U/L (12-78); Albumin Level 4.3 g/dl (3.5-5.0); Albumin/Globulin Ratio 1.4 (1.1-1.8); Alkaline Phosphatase 57 U/L (38-126); Anion Gap 7.9 mEq/L (5-15); Aspartate Amino Transferase 21 U/L (14-36); Bilirubin,Total 0.3 mg/dl (0.2-1.3); Blood Urea Nitrogen 13 mg/dl (7-17); Calcium 8.9 mg/dl (8.4-10.2); Carbon Dioxide 31 mmol/L (22.0-30.0); Chloride 103 mmol/L (98-107); Creatinine Clearance Estimated 157 mL/min (50-200); Creatinine,Serum 0.80 mg/dl (0.52-1.04); Estimated Glomerular Filt Rate 85 ml/min (>60); GFR (African American) 103 ML/MIN (>60); Globulin 3.0 g/dL (1.3-3.2); Glucose 107 mg/dl (74-100); Potassium 3.9 mmoL/L (3.5-5.1); Sodium 138 mmol/L (136-145); Total Protein,Serum 7.3 g/dl (6.3-8.2)
[2025-10-10 00:06] LABS: HCG Qualitative, Serum Negative (Negative)
[2025-10-10 00:09] LABS: Lipase 40 U/L (23-300)
[2025-10-10 00:24] VITALS: BP 124/81; PULSE 78; RESP 16; TEMP 36.7; O2SAT 99
== END 2025-10-10 00:26 | disposition home or self-care (01) ==
PROVIDERS: Emergency Provider Emergency Medicine; PCP Nurse Practitioner Family
DX: R10.13 Epigastric pain (principal); R11.0 Nausea; F17.210 Nicotine dependence, cigarettes, uncomplicated
CPT/HCPCS: 80053; 83690; 84703; 85025; 96374; 96375; 99284; J2270; J2405